=== PATIENT | male | born 1995 | race Caucasian/White ===

== ENCOUNTER 2020-09-03 22:11 | Emergency (ER) | payer OTHER ==
[2020-09-03 22:34] VITALS: PULSE 110; RESP 18; TEMP 98.9
[2020-09-03] MEDS ORDERED: SODIUM CHLORIDE 0.9% 1,000 ML IV STA (22:55)
[2020-09-03 23:09] LABS: Basophils # (A) 0.1 k/uL (0-0.2); Basophils % (A) 1 %; Eosinophils # (A) 0.1 k/uL (0-0.7); Eosinophils % (A) 1 %; HCT 45.5 % (39.0-53.0); HGB 16.2 gm/dL (13.0-17.5); Lymphocytes # (A) 3.6 k/uL (1.0-4.8); Lymphocytes % (A) 37 %; MCHC 35.7 g/dL (31.0-37.0); MCV 89.7 fL (80.0-100.0); Mean Platelet Volume 6.9; Monocytes # (A) 0.6 k/uL (0-1.0); Monocytes % (A) 7 %; Neutrophils # (A) 4.9 k/uL (1.3-7.7); Neutrophils % (A) 51 %; Platelet Count 329 k/uL (150-450); RBC 5.07 m/uL (4.30-5.90); RDW 11.8 % (11.5-15.5); WBC 9.6 k/uL (3.8-10.6)
[2020-09-03 23:19] LABS: ALT 48 U/L (4-49); AST 41 U/L (17-59); African American GFR (CKD) >90 (>60 ml/min/1.73 sqM); Albumin 4.8 g/dL (3.5-5.0); Alkaline Phosphatase 75 U/L (38-126); Anion Gap 8 mmol/L; Blood Urea Nitrogen 15 mg/dL (9-20); Calcium 9.7 mg/dL (8.4-10.2); Carbon Dioxide 29 mmol/L (22-30); Chloride 104 mmol/L (98-107); Glucose 97 mg/dL (74-99); Lipase 44 U/L (23-300); Non-African American GFR(CKD) >90 (>60 ml/min/1.73 sqM); Sodium 141 mmol/L (137-145); Total Bilirubin 0.4 mg/dL (0.2-1.3); Total Protein 7.8 g/dL (6.3-8.2)
--- NOTE | 2020-09-03 23:34 | CT ---
EXAM: CT Abdomen and Pelvis With Intravenous Contrast CLINICAL HISTORY: Abdominal pain. TECHNIQUE: Axial computed tomography images of the abdomen and pelvis with intravenous contrast. CTDI is 22.27 mGy and DLP is 987.4 mGy-cm. This CT exam was performed using one or more of the following dose reduction techniques: automated exposure control, adjustment of the mA and/or kV according to patient size, and/or use of iterative reconstruction technique. COMPARISON: No previous studies. FINDINGS: Lung bases: Unremarkable. No mass. No consolidation. Pleural space: No pleural effusions. Heart: Heart is normal in size. ABDOMEN: Liver: The liver and the spleen enhance uniformly. Possible very mild fatty liver. Gallbladder and bile ducts: The bladder is in a partially contracted state without gallstones. No ductal dilation. Pancreas: See below. Spleen: See above. Adrenals: Adrenal metastases, the head, body, tail of the pancreas are unremarkable. Kidneys and ureters: Both kidneys are shown to excrete contrast bilaterally without renal calculus or hydronephrosis. Stomach and bowel: Ingested material in the stomach per Moderate quantity of stool throughout the colon. There is diffuse wall thickening of the transverse colon extending to involve the descending colon and the sigmoid colon. Inflammatory or infectious colitis are felt to be the most likely etiologies. No obstruction. PELVIS: Appendix: Appendix is seen on coronal image 45 and is unremarkable. Bladder: The bladder is underdistended Jalloh Reproductive: Prostate gland is unremarkable. ABDOMEN and PELVIS: Intraperitoneal space: Unremarkable. No free air. No significant fluid collection. Bones/joints: Vacuum disc at the L5-S1 level. No spondylolysis or spinal listhesis appeared Minimal grade 1 retrolisthesis of L5 upon S1 vertebral body. No acute fracture. No dislocation. Soft tissues: Ischiorectal fat is clean. Vasculature: Flow is demonstrated within the celiac, SMA, the renal arteries, and HATTIE. Portal vein is unremarkable. No abdominal aortic aneurysm. Lymph nodes: No retroperitoneal lymphadenopathy. No pelvic or inguinal lymphadenopathy. IMPRESSION: 1. Mild fatty liver. 2. Gallbladder is in a semi-contracted state without gallstones. 3. No renal calculus or hydronephrosis. 4. Appendix is unremarkable. 5. Wall thickening of the transverse colon, the descending colon and the sigmoid colon segments most suggestive of inflammatory or infectious etiologies. 6. No bowel obstruction.
--- NOTE | 2020-09-03 23:47 | ED ---
General Adult HPI - General Chief complaint: Abdominal Pain Stated complaint: Abd Pain Time Seen by Provider: 09/03/20 22:42 Source: patient, RN notes reviewed, old records reviewed Mode of arrival: ambulatory Limitations: no limitations - History of Present Illness Initial comments: 25-year-old male patient here for evaluation of abdominal pain. Patient reports that he was diagnosed with IBS was told that is possible he may have Crohn's. He reports that he has been having daily abdominal pain for weeks. Reports he also had some bloody diarrhea on a few occasions. Denies any nausea or vomiting. Denies any other complaints. Systemic: Pt denies fatigue, fever/chills, rash. Pt denies weakness, night sweats, weight loss. Neuro: Pt denies headache, visual disturbances, syncope or pre-syncope. HEENT: Pt denies ocular discharge or irritation, otalgia, rhinorrhea, pharyngitis or notable lymphadenopathy. Cardiopulmonary: Pt denies chest pain, SOB, heart palpitations, dyspnea on exertion. Abdominal/GI: Pt denies n/v. : Pt denies dysuria, burning w/ urination, frequency/urgency. Denies new onset urinary or bowel incontinence. MSK: Pt denies myalgia, loss of strength or function in extremities. Neuro: Pt denies new onset weakness, paresthesias. - Related Data Home Medications Medication Instructions Recorded Confirmed Diphenoxylate HCl/Atropine 2 tab PO BID PRN 09/03/20 09/03/20 [Lomotil 2.5-0.025 mg Tablet] Omeprazole 20 mg PO HS 09/03/20 09/03/20 lamoTRIgine [lamoTRIgine ER] 50 mg PO HS 09/03/20 09/03/20 Allergies Allergy/AdvReac Type Severity Reaction Status Date / Time diphenhydramine AdvReac Itching Verified 09/03/20 23:34 [From Benadryl] Review of Systems ROS Statement: Those systems with pertinent positive or pertinent negative responses have been documented in the HPI. ROS Other: All systems not noted in ROS Statement are negative. Past Medical History Additional Past Medical History / Comment(s): Crohns, IBS History of Any Multi-Drug Resistant Organisms: None Reported Past Surgical History: Orthopedic Surgery Additional Past Surgical History / Comment(s): rt hand Past Psychological History: Anxiety Smoking Status: Current every day smoker Past Alcohol Use History: None Reported Past Drug Use History: Marijuana General Exam - General Exam Comments Initial Comments: Constitutional: NAD, AOX3, Pt has pleasant affect. HEENT: NC/AT, trachea midline, neck supple, no lymphadenopathy. External ears appear normal, without discharge. Mucous membranes moist. Eyes PERRLA, EOM intact. There is no scleral icterus. No pallor noted. Cardiopulmonary: RRR, no murmurs, rubs or gallops, no JVD noted. Lungs CTAB in anterior and posterior hunt. No peripheral edema. Abdominal exam: Abdomen soft and non-distended. Abdomen has mild generalized tenderness. No focal area of tenderness. Bowel sounds active in LLQ. No hepatosplenomegaly. No ecchymosis Neuro: CN II-XII grossly intact. No nuchal rigidity. No raccon eyes, no martinez sign, no hemotympanum. No cervical spinal tenderness. MSK: Full active ROM in upper and lower extremities, 5/5 stregnth. Limitations: no limitations Course Vital Signs 09/03/20 22:32 Temperature 98.9 F Pulse Rate 110 H Respiratory 18 Rate Blood Pressure 130/71 O2 Sat by Pulse 99 Oximetry Medical Decision Making - Medical Decision Making 25-year-old male patient here for evaluation of abdominal pain. Patient reports that he was diagnosed with IBS was told that is possible he may have Crohn's. He reports that he has been having daily abdominal pain for weeks. Reports he also had some bloody diarrhea on a few occasions. Denies any nausea or vomiting. Denies any other complaints. Patient vital signs are stable, afebrile. Physical exam displayed mild denies abdominal tenderness. Laboratory Investigations are unremarkable. The TMs pelvis displayed mild fatty liver, gallbladder is in a semi-contracted state without gallstones. No renal Keckler hydronephrosis. Appendix is unremarkable. Wall thickening of the transverse colon the descending colon and sigmoid colon. No bowel obstruction. Patient is in no acute distress. Patient will be discharged with outpatient GI follow-up and return precautions. Case discussed with Dr. Brito. - Lab Data Result diagrams: 09/03/20 23:01 09/03/20 23:01 Lab Results 09/03/20 09/03/20 09/03/20 Range/Units 23:01 23: 23:01 WBC 9.6 (3.8-10.6) k/uL RBC 5.07 (4.30-5.90) m/uL Hgb 16.2 (13.0-17.5) gm/dL Hct 45.5 (39.0-53.0) % MCV 89.7 (80.0-100.0) fL MCH 32.0 (25.0-35.0) pg MCHC 35.7 (31.0-37.0) g/dL RDW 11.8 (11.5-15.5) % Plt Count 329 (150-450) k/uL MPV 6.9 Neutrophils % 51 % Lymphocytes % 37 % Monocytes % 7 % Eosinophils % 1 % Basophils % 1 % Neutrophils # 4.9 (1.3-7.7) k/uL Lymphocytes # 3.6 (1.0-4.8) k/uL Monocytes # 0.6 (0-1.0) k/uL Eosinophils # 0.1 (0-0.7) k/uL Basophils # 0.1 (0-0.2) k/uL Sodium 141 (137-145) mmol/L Potassium 4.0 (3.5-5.1) mmol/L Chloride 104 (98-107) mmol/L Carbon Dioxide 29 (22-30) mmol/L Anion Gap 8 mmol/L BUN 15 (9-20) mg/dL Creatinine 0.77 (0.66-1.25) mg/dL Est GFR (CKD-EPI)AfAm >90 (>60 ml/min/1.73 sqM) Est GFR (CKD-EPI)NonAf >90 (>60 ml/min/1.73 sqM) Glucose 97 (74-99) mg/dL Plasma Lactic Acid Zechariah 0.9 (0.7-2.0) mmol/L Calcium 9.7 (8.4-10.2) mg/dL Total Bilirubin 0.4 (0.2-1.3) mg/dL AST 41 (17-59) U/L ALT 48 (4-49) U/L Alkaline Phosphatase 75 (38-126) U/L Total Protein 7.8 (6.3-8.2) g/dL Albumin 4.8 (3.5-5.0) g/dL Lipase 44 (23-300) U/L Disposition Clinical Impression: Abdominal pain Disposition: HOME SELF-CARE Condition: Stable Instructions (If sedation given, give patient instructions): Abdominal Pain (ED) Additional Instructions: Follow up with PCP tomorrow. Follow up with GI consult tomorrow. Return to ED with any worsening symptoms. Is patient prescribed a controlled substance at d/c from ED?: No Referrals: Emily Goldberg DO [Primary Care Provider] - 1-2 days Mike Hinson MD [STAFF PHYSICIAN] - 1-2 days
[2020-09-03 23:56] VITALS: BP 140/91
== END 2020-09-03 23:56 | disposition home or self-care (01) ==
LOC: EC 22:11
DX: R10.9 Unspecified abdominal pain (principal); K76.0 Fatty (change of) liver, not elsewhere classified; K82.0 Obstruction of gallbladder; K63.89 Other specified diseases of intestine; F17.200 Nicotine dependence, unspecified, uncomplicated; Z79.899 Other long term (current) drug therapy; Z88.8 Allergy status to other drugs, medicaments and biological substances
CPT/HCPCS: 80053; 83605; 83690; 85025; 74177; 99284; 96360; Q9967

== ENCOUNTER 2020-09-04 21:03 | Emergency (ER) | payer OTHER ==
[2020-09-04 21:18] VITALS: BP 122/81; PULSE 108; RESP 18; TEMP 98.3
[2020-09-04] MEDS ORDERED: ACET/COD 300 MG/30 MG STARTER PACK 6 TAB BTL PO STA (21:57)
--- NOTE | 2020-09-04 21:57 | ED ---
Recheck HPI - General Source: patient Mode of arrival: ambulatory Limitations: no limitations <Mary Eisenberg - Last Filed: 09/04/20 22:36> <Jeannine Recinos - Last Filed: 09/06/20 09:04> - General Chief Complaint: Abdominal Pain Stated Complaint: Revisit Abd Pain Time Seen by Provider: 09/04/20 21:31 - History of Present Illness Initial Comments: Patient is a 25-year-old male presenting to the emergency department for a recheck of his abdominal pain. Patient was seen and evaluated yesterday for abdominal pain, he had full workup including labs and computed tomography scan, no acute abnormalities were seen. He has been diagnosed with IBS in the past and there is concerns for Crohn's. He has not yet followed up with a GI doctor. He is coming back in today because he feels like "the contrast from the computed tomography scan is still in his abdomen and it makes him feel warm." He denies any fever, chills, nausea, vomiting. He states he still has his abdominal pain, it is his usual pain, nothing that increased from yesterday. He has been trying edible's to control his pain as he does not like to take pills. He has no further complaints at this time. (Mary Eisenberg) - Related Data Home Medications Medication Instructions Recorded Confirmed Diphenoxylate HCl/Atropine 2 tab PO BID PRN 09/03/20 09/03/20 [Lomotil 2.5-0.025 mg Tablet] Omeprazole 20 mg PO HS 09/03/20 09/03/20 lamoTRIgine [lamoTRIgine ER] 50 mg PO HS 09/03/20 09/03/20 Allergies Allergy/AdvReac Type Severity Reaction Status Date / Time diphenhydramine AdvReac Itching Verified 09/04/20 21:18 [From Benadryl] Review of Systems ROS Other: All systems not noted in ROS Statement are negative. <Mary Eisenberg - Last Filed: 09/04/20 22:36> ROS Other: All systems not noted in ROS Statement are negative. <Jeannine Recinos - Last Filed: 09/06/20 09:04> ROS Statement: Those systems with pertinent positive or pertinent negative responses have been documented in the HPI. Past Medical History Past Medical History: No Reported History Additional Past Medical History / Comment(s): Crohns, IBS History of Any Multi-Drug Resistant Organisms: None Reported Past Surgical History: Orthopedic Surgery Additional Past Surgical History / Comment(s): rt hand Past Psychological History: Anxiety Smoking Status: Current every day smoker Past Alcohol Use History: None Reported Past Drug Use History: Marijuana <Jen Eisenbergnifer Chris - Last Filed: 09/04/20 22:36> General Exam Limitations: no limitations <FainaMary Chris - Last Filed: 09/04/20 22:36> - General Exam Comments Initial Comments: GENERAL: Patient is well-developed and well-nourished. Patient is nontoxic and in no acute distress. HEAD: Atraumatic, normocephalic. EYES: Pupils equal round and reactive to light, extraocular movements intact, sclera anicteric, conjunctiva are normal. Eyelids were unremarkable. ENT: TMs normal, nares patent, oropharynx clear without exudates. Moist mucous membranes. NECK: Normal range of motion, supple without lymphadenopathy or JVD. LUNGS: Unlabored respirations. Breath sounds clear to auscultation bilaterally and equal. No wheezes rales or rhonchi. HEART: Regular rate and rhythm without murmurs, rubs or gallops. ABDOMEN: Mild generalized tenderness on palpation, no specific area pain. Soft, normoactive bowel sounds. No guarding, no rebound. No masses appreciated. : Deferred MUSCULOSKELETAL: Normal extremities with adequate strength and normal range of motion, no pitting or edema. No clubbing or cyanosis. NEUROLOGICAL: Patient is alert and oriented x 3. Motor and sensory are also intact. Cranial nerves II through XII grossly intact. Symmetrical smile. Normal speech, normal gait. PSYCH: Normal mood, normal affect. SKIN: Warm, Dry, normal turgor, no rashes or lesions noted. (Mary Eisenberg) Course Vital Signs 09/04/20 21:14 Temperature 98.3 F Pulse Rate 108 H Respiratory 18 Rate Blood Pressure 122/81 O2 Sat by Pulse 100 Oximetry Medical Decision Making <Mary Eisenberg - Last Filed: 09/04/20 22:36> <Jeannine Recinos - Last Filed: 09/06/20 09:04> - Medical Decision Making Patient is a 25-year-old male here for recheck from his examination performed yesterday. Patient was in the ER yesterday for abdominal pain had full workup including labs and CT of his abdomen that showed no acute abnormality, there is signs for IBS. He was told to follow up with GI. He came in today with concerns of the contrast still in his abdomen and "making him feel warm." His vital signs upon arrival are stable, he is afebrile. He states it feels the same as he always does. I discussed the findings from yesterday and he is requesting something to take for his pain. I will give him a starter pack of tramadol. He needs to follow up with his GI doctor. He is in agreement this plan of care. He is stable for discharge. Case discussed with Dr. Recinos. (Mary Eisenberg) I was available for consultation in the emergency department. The history and physical exam were done by the midlevel provider. I was consulted for this patients care. I reviewed the case with the midlevel provider and based on their presentation of the patient, I agree with the assessment, medical decision making and plan of care as documented. Chart was dictated using [employer] dictation software. Attempts were made to correct any dictation errors however some typographical errors may persist. Patient seen during the covid-19 pandemic (Jeannine Recinos) Disposition Is patient prescribed a controlled substance at d/c from ED?: No <Mary Eisenberg - Last Filed: 09/04/20 22:36> <Jeannine Recinos - Last Filed: 09/06/20 09:04> Clinical Impression: Abdominal pain Disposition: HOME SELF-CARE Condition: Stable Instructions (If sedation given, give patient instructions): Abdominal Pain (ED) Additional Instructions: Please return to the Emergency Department if symptoms worsen or any other concerns. Please follow-up with your GI doctor as discussed. Limit spicy, fatty foods. Referrals: Emily Goldberg DO [Primary Care Provider] - 1-2 days
== END 2020-09-04 22:15 | disposition home or self-care (01) ==
LOC: EC 21:03
DX: R10.9 Unspecified abdominal pain (principal); F41.9 Anxiety disorder, unspecified; F17.200 Nicotine dependence, unspecified, uncomplicated; Z79.899 Other long term (current) drug therapy; Z88.8 Allergy status to other drugs, medicaments and biological substances
CPT/HCPCS: 99283

== ENCOUNTER 2020-10-02 01:27 | Observation (INO) | payer OTHER ==
[2020-10-02] MEDS ORDERED: SODIUM CHLORIDE 0.9% 1,000 ML IV STA (01:34)
--- NOTE | 2020-10-02 01:42 | ED ---
Overdose HPI - General Stated Complaint: overdose Time Seen by Provider: 10/02/20 01:33 Source: patient, EMS Mode of arrival: ambulatory Limitations: no limitations - History of Present Illness Initial Comments: 25-year-old male who struggles with depression crackly presented to the emergency room today for chief complaint of Seroquel overdose as a suicide attempt. Patient states that he recently was laid off increasing his baseline depression. Patient states tonight he took roughly 50-60, 50 mg Seroquel tablets. Patient states he feels tired and nauseous. He states he did vomit up approximately 20 "whole pills". Patient denies any coingestion he states he took his omeprazole, Bentyl and Lomotil as directed. Patient denies chest pain shortness of breath, emesis, abdominal pain, dizziness or additional complaints. pt appears well nontoxic in no acute distress on arrival. He is AAOX4 answering questions appropriately. - Related Data Home Medications Medication Instructions Recorded Confirmed Diphenoxylate HCl/Atropine 2 tab PO BID PRN 09/03/20 09/03/20 [Lomotil 2.5-0.025 mg Tablet] Omeprazole 20 mg PO HS 09/03/20 09/03/20 lamoTRIgine [lamoTRIgine ER] 50 mg PO HS 09/03/20 09/03/20 Allergies Allergy/AdvReac Type Severity Reaction Status Date / Time diphenhydramine AdvReac Itching Verified 10/02/20 01:38 [From Benadryl] Review of Systems ROS Statement: Those systems with pertinent positive or pertinent negative responses have been documented in the HPI. ROS Other: All systems not noted in ROS Statement are negative. Past Medical History Past Medical History: No Reported History Additional Past Medical History / Comment(s): Crohns, IBS History of Any Multi-Drug Resistant Organisms: None Reported Past Surgical History: Orthopedic Surgery Additional Past Surgical History / Comment(s): rt hand Past Psychological History: Anxiety, Bipolar, Depression Smoking Status: Current every day smoker Past Alcohol Use History: None Reported Past Drug Use History: Marijuana General Exam - General Exam Comments Initial Comments: General: The patient is awake and alert, in no distress, Eye: +3 mm pupils are equal, round and reactive to light, extra-ocular movements are intact. No nystagmus. There is normal conjunctiva bilaterally. No signs of icterus. Ears, nose, mouth and throat: There are moist mucous membranes and no oral lesions. Neck: The neck is supple, there is no tenderness or JVD. Cardiovascular: There is a regular rate and rhythm. No murmur, rub or gallop is appreciated. Respiratory: Lungs are clear to auscultation, respirations are non-labored, breath sounds are equal. No wheezes, stridor, rales, or rhonchi. Gastrointestinal: Soft, non-distended, non-tender abdomen without masses or organomegaly noted. There is no rebound or guarding present. Musculoskeletal: Normal ROM, no tenderness. Strength 5/5. Sensation intact. Radial pulses equal bilaterally 2+. Neurological: A&O x 3. CN II-XII intact grossly, There are no obvious motor or sensory deficits. Coordination appears grossly intact. Speech is normal. Skin: Skin is warm and dry and no rashes or lesions are noted. Psychiatric: Cooperative, appears overall slightly drowsy but is oriented. Limitations: no limitations Course Vital Signs 10/02/20 10/02/20 10/02/20 01:30 02:54 03:29 Temperature 98.5 F Pulse Rate 90 102 H 92 Respiratory 20 18 18 Rate Blood Pressure 133/83 132/63 96/45 O2 Sat by Pulse 98 96 94 L Oximetry 10/02/20 03:31 Temperature Pulse Rate Respiratory Rate Blood Pressure 117/48 O2 Sat by Pulse Oximetry Medical Decision Making - Medical Decision Making ~3g Seroquel overdose. Intentional, patient suicidal. Denies homicidal ideation. Patient very cooperative. Patient is slightly drowsy however alert and oriented 4 on arrival. He has no focal neurological deficits. He denies any coingestions. Patient's blood pressure remained stable throughout visit. Patient had no QT plication EKG. Acetaminophen and salicylate levels undetectable. Patient has had no neurological changes and will be admitted for further observation on telemetry. Dr Umana accepted the admission and is agreeable to care plan as is attending provider Yfn Singer - Lab Data Result diagrams: 10/02/20 01:38 10/02/20 01:38 Lab Results 10/02/20 10/02/20 10/02/20 Range/Units 01:38 01:38 02:54 WBC 6.9 (3.8-10.6) k/uL RBC 5.10 (4.30-5.90) m/uL Hgb 15.2 (13.0-17.5) gm/dL Hct 46.6 (39.0-53.0) % MCV 91.3 (80.0-100.0) fL MCH 29.9 (25.0-35.0) pg MCHC 32.7 (31.0-37.0) g/dL RDW 12.5 (11.5-15.5) % Plt Count 262 (150-450) k/uL MPV 6.8 Neutrophils % 59 % Lymphocytes % 31 % Monocytes % 6 % Eosinophils % 1 % Basophils % 0 % Neutrophils # 4.1 (1.3-7.7) k/uL Lymphocytes # 2.2 (1.0-4.8) k/uL Monocytes # 0.4 (0-1.0) k/uL Eosinophils # 0.1 (0-0.7) k/uL Basophils # 0.0 (0-0.2) k/uL Sodium 139 (137-145) mmol/L Potassium 3.6 (3.5-5.1) mmol/L Chloride 107 (98-107) mmol/L Carbon Dioxide 23 (22-30) mmol/L Anion Gap 9 mmol/L BUN 21 H (9-20) mg/dL Creatinine 0.71 (0.66-1.25) mg/dL Est GFR (CKD-EPI)AfAm >90 (>60 ml/min/1.73 sqM) Est GFR (CKD-EPI)NonAf >90 (>60 ml/min/1.73 sqM) Glucose 117 H (74-99) mg/dL Calcium 9.1 (8.4-10.2) mg/dL Total Bilirubin 0.3 (0.2-1.3) mg/dL AST 27 (17-59) U/L ALT 42 (4-49) U/L Alkaline Phosphatase 54 (38-126) U/L Total Protein 7.3 (6.3-8.2) g/dL Albumin 4.4 (3.5-5.0) g/dL Salicylates <1.0 mg/dL Urine Opiates Screen Not Detected (NotDetected) Ur Oxycodone Screen Not Detected (NotDetected) Urine Methadone Screen Not Detected (NotDetected) Ur Propoxyphene Screen Not Detected (NotDetected) Acetaminophen <10.0 ug/mL Ur Barbiturates Screen Not Detected (NotDetected) U Tricyclic Antidepress Detected H (NotDetected) Ur Phencyclidine Scrn Not Detected (NotDetected) Ur Amphetamines Screen Not Detected (NotDetected) U Methamphetamines Scrn Not Detected (NotDetected) U Benzodiazepines Scrn Not Detected (NotDetected) Urine Cocaine Screen Not Detected (NotDetected) U Marijuana (THC) Screen Detected H (NotDetected) Serum Alcohol <10 mg/dL Disposition Clinical Impression: Overdose, Depression, Suicide attempt Disposition: ADMITTED IP TO THIS [facility] Condition: Stable Is patient prescribed a controlled substance at d/c from ED?: No Referrals: Emily Goldberg DO [Primary Care Provider] - 1-2 days Time of Disposition: 04:00 Decision to Admit Reason: Admit from EC Decision Date: 10/02/20 Decision Time: 04:01
[2020-10-02 01:49] LABS: Basophils % (A) 0 %; Eosinophils # (A) 0.1 k/uL (0-0.7); Eosinophils % (A) 1 %; HCT 46.6 % (39.0-53.0); HGB 15.2 gm/dL (13.0-17.5); Lymphocytes # (A) 2.2 k/uL (1.0-4.8); Lymphocytes % (A) 31 %; MCH 29.9 pg (25.0-35.0); MCHC 32.7 g/dL (31.0-37.0); MCV 91.3 fL (80.0-100.0); Mean Platelet Volume 6.8; Monocytes # (A) 0.4 k/uL (0-1.0); Monocytes % (A) 6 %; Neutrophils # (A) 4.1 k/uL (1.3-7.7); Neutrophils % (A) 59 %; Platelet Count 262 k/uL (150-450); RDW 12.5 % (11.5-15.5); WBC 6.9 k/uL (3.8-10.6)
[2020-10-02 01:55] LABS: ALT 42 U/L (4-49); AST 27 U/L (17-59); Acetaminophen <10.0 ug/mL; African American GFR (CKD) >90 (>60 ml/min/1.73 sqM); Albumin 4.4 g/dL (3.5-5.0); Alcohol <10 mg/dL; Alkaline Phosphatase 54 U/L (38-126); Anion Gap 9 mmol/L; Blood Urea Nitrogen 21 mg/dL (9-20); Calcium 9.1 mg/dL (8.4-10.2); Carbon Dioxide 23 mmol/L (22-30); Chloride 107 mmol/L (98-107); Glucose 117 mg/dL (74-99); Non-African American GFR(CKD) >90 (>60 ml/min/1.73 sqM); Potassium 3.6 mmol/L (3.5-5.1); Salicylate <1.0 mg/dL; Sodium 139 mmol/L (137-145); Total Bilirubin 0.3 mg/dL (0.2-1.3); Total Protein 7.3 g/dL (6.3-8.2)
[2020-10-02] MEDS: SODIUM CHLORIDE 0.9% 1,000 ML IV SCH ×2 (02:13→11:08)
[2020-10-02 03:20] LABS: Amphetamine Screen,Urine Not Detected (NotDetected); Barbiturate Screen,Urine Not Detected (NotDetected); Benzodiazepines Screen,Urine Not Detected (NotDetected); Cocaine Screen,Urine Not Detected (NotDetected); Methadone Screen, Urine Not Detected (NotDetected); Opiate Screen,Urine Not Detected (NotDetected); Oxycodone Screen, Urine Not Detected (NotDetected); Phencyclidine Screen,Urine Not Detected (NotDetected); Tricyclic Antidepressant,Urine Detected (NotDetected); Urn Cannabinoid Scrn Detected (NotDetected)
[2020-10-02] MEDS ORDERED: NALOXONE 0.4 MG/ML 1 ML VIAL IV PRN (03:55)
[2020-10-02] MEDS ORDERED: SODIUM BICARB 8.4% 50 ML SYR (1 MEQ/ML) IV STA (10:45)
[2020-10-02] MEDS ORDERED: Potassium Replacement Protocol 1 EACH MISC MISCELLANE PRN (10:46)
[2020-10-02] MEDS ORDERED: CALCIUM CHLORIDE 100 MG/ML 10 ML SYRINGE IVP ONE (10:47)
[2020-10-02] MEDS ORDERED: POTASSIUM CHLORIDE ER 20 MEQ TAB.ER PO SCH (11:00)
[2020-10-02] MEDS ORDERED: Magnesium Replacement Protocol 1 EACH MISC MISCELLANE PRN (11:45)
[2020-10-02 12:05] VITALS: RESP 18; TEMP 97.7
[2020-10-02] MEDS: MAGNESIUM SULFATE-D5W PMX 1 GM in DEXTROSE/WATER 1 100ML.BAG IVPB SCH ×2 (12:07→12:47)
[2020-10-02] MEDS ORDERED: PANTOPRAZOLE 40 MG TABLET PO STA (13:38)
[2020-10-02] MEDS ORDERED: NICOTINE POLACRILEX 2 MG GUM BUCCAL PRN (13:38)
[2020-10-02] MEDS ORDERED: HALOPERIDOL LACTATE 5 MG/ML 1 ML VIAL IM PRN (13:39)
[2020-10-02] MEDS ORDERED: LORazepam 2 MG/ML INJ IM PRN (13:39)
--- NOTE | 2020-10-02 14:29 | P.CN ---
Psychiatric Consult - . Consult date: 10/02/20 Consult:: IDENTIFYING DATA: This patient is an unemployed, engaged, 25-year-old male with a significant history of bipolar disorder who is admitted for overdose on Seroquel. HISTORY OF PRESENT ILLNESS: The patient presented to the hospital after intentionally overdosing on Seroquel after an argument with his fiance. The patient expresses that he has had multiple stressors recently including being laid off work as well as being in an argument with his fiance. He also reports that he and his fiance also have a new two-month old daughter. Patient expresses that he was in the heat of the argument that he decided to put Seroque l into his mouth. He approximates that he took about 20 pills prior to throwing up. EMS was then notified and the plane runner was brought to the hospital. Patient is not endorsing any significant symptoms depression at this time. He does report occasional thoughts of suicide but denies any current suicidal or homicidal ideation, intention, and/or plan. He denies any prior attempts at suicide aside from this overdose. He expresses plenty to live for including for his family, especially his daughter. He is not reporting any significant symptoms of bipolar disorder at this time aside from irritability and mood swings. He reports that he was recently diagnosed bipolar by his primary care provider who started him on Seroquel week ago. He has been on Lamictal for a few months. He is currently not reporting any auditory or visualizations. He is not reporting any paranoia or delusions. Patient became visibly frustrated and agitated when informed that he will have to be monitored as he expressed a strong desire for discharge. The patient allowed this provider to contact his fiance Mary over the phone. His fiance reports that she feels safe for the patient to return home. She denies that the patient has any access to firearms or weapons. She reports that she will monitor his medications and that it would be less therapeutic for him to be admitted to a psychiatric unit. She expresses that she feels like both the patient and the family would feel safer with the patient at home. PAST PSYCHIATRIC HISTORY: Patient has a a history of bipolar disorder. The pa tiebulmaro denies prior psychotropic medications aside from his currently prescribed Lamictal and Seroquel. Patient denies any previous psychiatric hospitalizations. The patient is prescribed his psychotropic medications through his primary care provider. Patient denies any history of suicide attempts in the past. PAST MEDICAL HISTORY: Crohn's disease, IBS. ALLERGIES: Diphenhydramine CHEMICAL DEPENDENCY HISTORY: The patient reports sleeping daily. He equivocates his sleep use to approximately 2 packs per day of tobacco. He reports smoking marijuana almost every day to treat his Crohn's and IBS. He denies any other drug use. He reports no significant alcohol use. FAMILY PSYCHIATRIC/SUBSTANCE USE HISTORY: Patient denies any family psychiatric or substance abuse history. SOCIAL HISTORY: The patient was in foster care at the age of 16 after his father and his mother ran out on him. He has 1 biological sister. He is currently engaged to his francis Hernandez with whom he has been living with. They have a 2-month-old daughter and tells his mother is also present in the home. 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 He graduated high school. He completed basic training for the [employer]. He is currently on probation for cashing a bad check. MENTAL STATUS EXAM: General Appearance: Patient appears to be stated age is alert, pleasant, and cooperative. Patient appears to have fair hygiene and grooming wearing hospital gown with fair eye contact. Behavior: Patient is calmly lying in bed without any agitated behavior. Patient becomes visibly agitated when informed about possible inpatient admission. He becomes calm and redirectable as a conversation continued. Speech: Patient's speech is fluent and nonpressured. Mood/Affect: Patient reports their mood is "okay", affect is euthymic to somewhat labile. The Patient appears irritable. Suicidality/Homicidality: Patient vehemently denies any suicidal or homicidal ideation, intention, and/or plan. Perceptions: Patient vehemently denies any auditory or visual hallucinations. Though content/process: There is no evidence of any delusional thought content and thought process is linear and goal-directed. Memory and concentration: AOX3, grossly intact for the purposes of this session. Can spell "WORLD" backwards Judgment and insight: poor IMPRESSIONS: Bipolar disorder, unspecified Adjustment disorder, with mixed disturbance of mood and conduct. Cannabis use disorder Nicotine dependence PLAN: -At this time patient DOES NOT meet criteria for inpatient psychiatric admission. The patient has had no prior attempts at suicide and this attempt was reactionary in nature secondary to poor coping skills. Significant discussion took place with the patient's carlos Hernandez who reports that the patient would benefit most from coming home and that she and her mother will monitor his medications and ensure no access to firearms or weapons. Protective factors currently outweigh the patient's risk factors. He has a supportive family, is future oriented, and a strong desire to live for his child. -Would recommend the following medication changes/additions: We will start Abilify 10 mg by mouth daily for mood stabilization We will restart Lamictal 50 mg by mouth at bedtime Discontinue Seroquel due to the nature of overdose as well as patient and family preference that the medication was too sedating. -Recommend social work consult to provide patient with resources for counseling services in the outpatient setting. Recommend follow-up for mental health tr eatment outpatient. -Continue 1:1 sitter for safety and elopement precautions -Psychiatry will sign off at this point, please contact with any questions. 10/02/20 14:15
[2020-10-02 16:39] VITALS: BP 106/62; PULSE 94
[2020-10-02 18:18] LABS: ALT 39 U/L (4-49); AST 24 U/L (17-59); African American GFR (CKD) >90 (>60 ml/min/1.73 sqM); Alkaline Phosphatase 54 U/L (38-126); Anion Gap 7 mmol/L; Blood Urea Nitrogen 11 mg/dL (9-20); Calcium 9.3 mg/dL (8.4-10.2); Carbon Dioxide 26 mmol/L (22-30); Chloride 105 mmol/L (98-107); Glucose 89 mg/dL (74-99); Non-African American GFR(CKD) >90 (>60 ml/min/1.73 sqM); Potassium 4.2 mmol/L (3.5-5.1); Sodium 138 mmol/L (137-145); Total Bilirubin 0.7 mg/dL (0.2-1.3); Total Protein 6.8 g/dL (6.3-8.2)
[2020-10-02] MEDS ORDERED: lamoTRIgine 25 MG TAB PO SCH (21:00)
--- NOTE | 2020-10-02 22:24 | P.HPIM ---
History of Present Illness H&P Date: 10/02/20 Chief Complaint: overdose Ra Roberson is a 25 yo M with PMH of depression, bipolar disorder who was brought to the ED via EMS after an overdose of seroquel. He states he got into an argument with his fiance yesterday as well as financial difficulties. He states he just became overwhelmed and took about 20 of his seroquel. Pt states this was not a suicide attempt but a cry for help and he denies suicidal ideation at this time. He vomited after and then his fiance called EMS. On presentation his vitals and labs were stable, EKG NSR with QTc 430. Review of Systems All systems: negative Constitutional: Denies chills, Denies fever Eyes: denies blurred vision, denies pain Ears, nose, mouth and throat: Denies headache, Denies sore throat Cardiovascular: Denies chest pain, Denies shortness of breath Respiratory: Denies cough Gastrointestinal: Denies abdominal pain, Denies diarrhea, Denies nausea, Denies vomiting Musculoskeletal: Denies myalgias Integumentary: Denies pruritus, Denies rash Neurological: Denies numbness, Denies weakness Psychiatric: Reports depression, Reports suicidal ideation, Denies anxiety Endocrine: Denies fatigue, Denies weight change Past Medical History Past Medical History: No Reported History Additional Past Medical History / Comment(s): Crohns, IBS History of Any Multi-Drug Resistant Organisms: None Reported Past Surgical History: Orthopedic Surgery Additional Past Surgical History / Comment(s): rt hand Past Psychological History: Anxiety, Bipolar, Depression Smoking Status: Vaper Past Alcohol Use History: None Reported Past Drug Use History: Marijuana - Past Family History Father Family Medical History: Cancer Medications and Allergies Home Medications Medication Instructions Recorded Confirmed Type Diphenoxylate HCl/Atropine 2 tab PO BID PRN 09/03/20 10/02/20 History [Lomotil 2.5-0.025 mg Tablet] Omeprazole 20 mg PO HS 09/03/20 10/02/20 History lamoTRIgine [lamoTRIgine ER] 50 mg PO HS 09/03/20 10/02/20 History QUEtiapine FUMARATE 50 - 100 mg PO HS 10/02/20 10/02/20 History Allergies Allergy/AdvReac Type Severity Reaction Status Date / Time diphenhydramine AdvReac Itching Verified 10/02/20 09:36 [From [facility] [place]] Physical Exam Vitals: Vital Signs Temp Pulse Pulse Resp BP BP Pulse Ox 10/02/20 16:00 94 18 106/62 97 10/02/20 14:00 18 10/02/20 12:00 97.7 F 70 18 102/55 97 10/02/20 11:57 97.3 F L 61 92/61 97 10/02/20 11:11 67 16 123/65 97 10/02/20 08:00 97.7 F 70 21 102/55 97 10/02/20 05:40 74 18 10/02/20 05:30 119/78 10/02/20 05:15 97.8 F 108 H 18 120/74 96 10/02/20 04:48 71 18 122/45 97 10/02/20 03:31 117/48 10/02/20 03:29 92 18 96/45 94 L 10/02/20 02:54 102 H 18 132/63 96 10/02/20 01:30 98.5 F 90 20 133/83 98 Intake and Output 10/02/20 10/02/20 10/02/20 06:59 14:59 22:59 Intake Total 1440 250 Balance 1440 250 Intake: Intake, IV Titration 1440 Amount Magnesium Sulfate-D5w Pmx 200 1 gm In Dextrose/Water 1 100ml.bag @ 100 mls/hr IVPB Q1H PIPE Rx#: [id number] Sodium Chloride 0.9% 1, 1240 000 ml @ 130 mls/hr IV . Q7H42M PIPE Rx#:[id number] Oral 250 Other: Voiding Method Toilet Toilet # Voids 0 Weight 92.986 kg 91.9 kg General: well nourished, well developed, NAD. Vitals reviewed Eyes: PERRL, EOMI, conjunctiva normal HENT: normocephalic, mucus membranes moist Neck: supple, no JVD Lungs: normal respiratory effort, no wheezes or rales CV: Regular rate and rhythm, no murmur. Peripheral pulses 2+ Abdomen: soft, nondistended, no organomegaly Lymph: no cervical or axillary LAD Skin: warm and dry. Neuro: A&Ox3, normal mood and affect Results CBC & Chem 7: 10/02/20 01:38 10/02/20 17:24 Labs: Abnormal Lab Results - Last 24 Hours (Table) 10/02/20 10/02/20 Range/Units 01:38 02:54 BUN 21 H (9-20) mg/dL Glucose 117 H (74-99) mg/dL U Tricyclic Antidepress Detected H (NotDetected) U Marijuana (THC) Screen Detected H (NotDetected) Thrombosis Risk Factor Assmnt - Choose All That Apply Any of the Below Risk Factors Present?: No Assessment and Plan (1) QT prolongation Status: Acute Code(s): R94.31 - ABNORMAL ELECTROCARDIOGRAM [ECG] [EKG] SNOMED Code(s): 501692246 (2) Overdose Status: Acute Code(s): T50.901A - POISONING BY UNSP DRUG/MEDS/BIOL SUBST, ACCIDENTAL, INIT SNOMED Code(s): 81883904 Plan: 1. Seroquel overdose. Poison control contacted and pt given bicarb. He is medically stable today. Psychiatry consulted for further evaluation
--- NOTE | 2020-10-02 22:26 | P.DS ---
Providers Date of admission: 10/02/20 04:27 Expected date of discharge: 10/02/20 Attending physician: Ramana Umana MD Consults: 10/02/20 03:56 Consult Physician Routine Consulting Provider: Omar Ford Consult Reason/Comments: suicidal, seroquel overdose Do you want consulting provider notified?: Yes Primary care physician: Emily Goldberg - Discharge Diagnosis(es) (1) QT prolongation Status: Acute (2) Overdose Status: Acute Hospital Course: Ra Roberson is a 25 yo M with PMH of depression, bipolar disorder who was brought to the ED via EMS after an overdose of seroquel. He states he got into an argument with his fiance yesterday as well as financial difficulties. He states he just became overwhelmed and took about 20 of his seroquel. Pt states this was not a suicide attempt but a cry for help and he denies suicidal ideation at this time. He vomited after and then his fiance called EMS. On presentation his vitals and labs were stable, EKG NSR with QTc 430. Pt admitted to medicine and seen by psychiatry. He was monitored and given bicarb as well as calcium per poison control. Pt cleared by psych and seroquel stopped, he will now start abilify 10 mg qam and follow up with PCP in clinic. Patient Condition at Discharge: Stable Plan - Discharge Summary New Discharge Prescriptions: Continue lamoTRIgine [lamoTRIgine ER] 50 mg PO HS Omeprazole 20 mg PO HS Diphenoxylate HCl/Atropine [Lomotil 2.5-0.025 mg Tablet] 2 tab PO BID PRN PRN Reason: Diarrhea QUEtiapine FUMARATE 50 - 100 mg PO HS Discharge Medication List Diphenoxylate HCl/Atropine [Lomotil 2.5-0.025 mg Tablet] 2 tab PO BID PRN 09/03/20 [History] Omeprazole 20 mg PO HS 09/03/20 [History] lamoTRIgine [lamoTRIgine ER] 50 mg PO HS 09/03/20 [History] QUEtiapine FUMARATE 50 - 100 mg PO HS 10/02/20 [History] Follow up Appointment(s)/Referral(s): Ramana Umana MD [STAFF PHYSICIAN] - 1 Week (Please call to schedule follow up) Patient Instructions/Handouts: Depression (DC) Discharge Disposition: HOME SELF-CARE Care Plan Goals (MU): Follow up with CM resources
[2020-10-03] MEDS ORDERED: ARIPiprazole 10 MG TAB PO SCH (09:00)
== END 2020-10-02 18:45 | disposition home or self-care (01) ==
LOC: EC 01:27 → 3SCARD 04:27 → INTOOBSV 04:27 → UNDODISIN 18:45
PROVIDERS: ADMIT Family Medicine; ATTEND Family Medicine
DX: T43.592A Poisoning by other antipsychotics and neuroleptics, intentional self-harm, initial encounter (principal); R94.31 Abnormal electrocardiogram [ECG] [EKG]; F31.9 Bipolar disorder, unspecified; F43.25 Adjustment disorder with mixed disturbance of emotions and conduct; F41.9 Anxiety disorder, unspecified; K50.90 Crohn's disease, unspecified, without complications; F17.200 Nicotine dependence, unspecified, uncomplicated; F12.90 Cannabis use, unspecified, uncomplicated; Z59.9 Problem related to housing and economic circumstances, unspecified; Z79.899 Other long term (current) drug therapy; Z80.9 Family history of malignant neoplasm, unspecified
CPT/HCPCS: 96374; 96375; 93005 ×2; 82075; 96361; 99285; 36415; 80053; 83735; 85025; 80306; 83520; 80143; G0378; G0480; J3475; 80320; 80329

== ENCOUNTER 2022-01-14 15:29 | Observation (INO) | payer OTHER ==
[2022-01-14] MEDS ORDERED: HYDROmorphone 1 MG/ML 1 ML SYRINGE IVP STA (15:52)
[2022-01-14] MEDS ORDERED: SODIUM CHLORIDE 0.9% 500 ML 500 ML IV ONE (15:52)
--- NOTE | 2022-01-14 15:59 | ED ---
General Adult HPI - General Chief complaint: Extremity Injury, Upper Stated complaint: IHS-R arm injury Time Seen by Provider: 01/14/22 15:45 Source: patient, RN notes reviewed, old records reviewed Mode of arrival: ambulatory Limitations: no limitations - History of Present Illness Initial comments: 26-year-old male presenting for evaluation right upper extremity pain. 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 He was seen at urgent care around noon today and apparently had x-rays performed which she reports were negative for fracture. He's had severe pain in this arm since the injury. He was told to present to the emergency department for evaluation. Denies any injury other than the right upper extremity. - Related Data Home Medications Medication Instructions Recorded Confirmed Diphenoxylate HCl/Atropine 2 tab PO BID PRN 09/03/20 10/02/20 [Lomotil 2.5-0.025 mg Tablet] Omeprazole 20 mg PO HS 09/03/20 10/02/20 lamoTRIgine [lamoTRIgine ER] 50 mg PO HS 09/03/20 10/02/20 QUEtiapine FUMARATE 50 - 100 mg PO HS 10/02/20 10/02/20 Allergies Allergy/AdvReac Type Severity Reaction Status Date / Time diphenhydramine AdvReac Itching Verified 01/14/22 15:31 [From Benadryl] Review of Systems ROS Statement: Those systems with pertinent positive or pertinent negative responses have been documented in the HPI. ROS Other: All systems not noted in ROS Statement are negative. Past Medical History Past Medical History: No Reported History Additional Past Medical History / Comment(s): Crohns, IBS History of Any Multi-Drug Resistant Organisms: None Reported Past Surgical History: Orthopedic Surgery Additional Past Surgical History / Comment(s): rt hand Past Psychological History: Anxiety, Bipolar, Depression Smoking Status: Vaper Past Alcohol Use History: None Reported Past Drug Use History: Marijuana - Past Family History Father Family Medical History: Cancer General Exam Limitations: no limitations General appearance: alert, in distress Head exam: Present: atraumatic, normocephalic Eye exam: Present: normal appearance, PERRL ENT exam: Present: normal exam Neck exam: Present: normal inspection. Absent: tenderness, meningismus Respiratory exam: Present: normal lung sounds bilaterally. Absent: respiratory distress Cardiovascular Exam: Present: regular rate, normal rhythm GI/Abdominal exam: Present: soft. Absent: distended, tenderness, guarding Extremities exam: Present: other (Right upper extremity:, Decreased range of motion at the digits secondary to pain. He has a 2+ radial pulse. There is no significant external signs of trauma. His compartments are somewhat tense.) Neurological exam: Present: alert, oriented X3 Course Vital Signs 01/14/22 15:31 Temperature 98 F Pulse Rate 102 H Respiratory 18 Rate Blood Pressure 141/83 O2 Sat by Pulse 98 Oximetry - Reevaluation(s) Reevaluation #1: 01/14/22 15:55 I [address] page orthopedics for urgent consultation. Medical Decision Making - Medical Decision Making 26-year-old male with crush injury to the right upper extremity. X-rays are performed of the humerus and forearm. There is no bony abnormality. Patient is in severe pain. He decreased range of motion at the hand and decreased s ensation. Distal pulses are intact. There is concern for compartment syndrome although his compartments are soft at this time. I discussed case with orthopedic surgery Dr. Hernandez, who is able to evaluate the patient emergency department. He will be kept overnight to monitor closely. Pain medicine has been ordered. - Lab Data Result diagrams: 01/14/22 16:12 01/14/22 16:12 Lab Results 01/14/22 01/14/22 01/14/22 Range/Units 16:12 16:12 16:12 WBC 7.8 (3.8-10.6) k/uL RBC 4.96 (4.30-5.90) m/uL Hgb 15.3 (13.0-17.5) gm/dL Hct 45.6 (39.0-53.0) % MCV 92.0 (80.0-100.0) fL MCH 30.9 (25.0-35.0) pg MCHC 33.6 (31.0-37.0) g/dL RDW 12.7 (11.5-15.5) % Plt Count 317 (150-450) k/uL MPV 7.0 Neutrophils % 50 % Lymphocytes % 42 % Monocytes % 4 % Eosinophils % 1 % Basophils % 0 % Neutrophils # 3.9 (1.3-7.7) k/uL Lymphocytes # 3.3 (1.0-4.8) k/uL Monocytes # 0.3 (0-1.0) k/uL Eosinophils # 0.1 (0-0.7) k/uL Basophils # 0.0 (0-0.2) k/uL PT 10.1 (9.0-12.0) sec INR 0.9 (<1.2) APTT 24.9 (22.0-30.0) sec Sodium 136 L (137-145) mmol/L Potassium 4.1 (3.5-5.1) mmol/L Chloride 103 (98-107) mmol/L Carbon Dioxide 23 (22-30) mmol/L Anion Gap 10 mmol/L BUN 18 (9-20) mg/dL Creatinine 0.79 (0.66-1.25) mg/dL Est GFR (CKD-EPI)AfAm >90 (>60 ml/min/1.73 sqM) Est GFR (CKD-EPI)NonAf >90 (>60 ml/min/1.73 sqM) Glucose 129 H (74-99) mg/dL Plasma Lactic Acid Zechariah (0.7-2.0) mmol/L Calcium 9.3 (8.4-10.2) mg/dL Magnesium 2.0 (1.6-2.3) mg/dL Total Bilirubin 0.5 (0.2-1.3) mg/dL AST 31 (17-59) U/L ALT 32 (4-49) U/L Alkaline Phosphatase 62 (38-126) U/L Creatine Kinase 262 H (55-170) U/L Total Protein 7.7 (6.3-8.2) g/dL Albumin 4.7 (3.5-5.0) g/dL 01/14/22 Range/Units 16:12 WBC (3.8-10.6) k/uL RBC (4.30-5.90) m/uL Hgb (13.0-17.5) gm/dL Hct (39.0-53.0) % MCV (80.0-100.0) fL MCH (25.0-35.0) pg MCHC (31.0-37.0) g/dL RDW (11.5-15.5) % Plt Count (150-450) k/uL MPV Neutrophils % % Lymphocytes % % Monocytes % % Eosinophils % % Basophils % % Neutrophils # (1.3-7.7) k/uL Lymphocytes # (1.0-4.8) k/uL Monocytes # (0-1.0) k/uL Eosinophils # (0-0.7) k/uL Basophils # (0-0.2) k/uL PT (9.0-12.0) sec INR (<1.2) APTT (22.0-30.0) sec Sodium (137-145) mmol/L Potassium (3.5-5.1) mmol/L Chloride (98-107) mmol/L Carbon Dioxide (22-30) mmol/L Anion Gap mmol/L BUN (9-20) mg/dL Creatinine (0.66-1.25) mg/dL Est GFR (CKD-EPI)AfAm (>60 ml/min/1.73 sqM) Est GFR (CKD-EPI)NonAf (>60 ml/min/1.73 sqM) Glucose (74-99) mg/dL Plasma Lactic Acid Zechariah 1.5 (0.7-2.0) mmol/L Calcium (8.4-10.2) mg/dL Magnesium (1.6-2.3) mg/dL Total Bilirubin (0.2-1.3) mg/dL AST (17-59) U/L ALT (4-49) U/L Alkaline Phosphatase (38-126) U/L Creatine Kinase (55-170) U/L Total Protein (6.3-8.2) g/dL Albumin (3.5-5.0) g/dL Disposition Clinical Impression: Crush injury arm Disposition: ADMITTED IP TO THIS [facility] Condition: Stable Is patient prescribed a controlled substance at d/c from ED?: No Referrals: None,Stated [Primary Care Provider] - 1-2 days Time of Disposition: 16:59
[2022-01-14 16:17] LABS: Basophils % (A) 0 %; Eosinophils # (A) 0.1 k/uL (0-0.7); Eosinophils % (A) 1 %; HCT 45.6 % (39.0-53.0); HGB 15.3 gm/dL (13.0-17.5); Lymphocytes # (A) 3.3 k/uL (1.0-4.8); Lymphocytes % (A) 42 %; MCH 30.9 pg (25.0-35.0); MCHC 33.6 g/dL (31.0-37.0); Monocytes # (A) 0.3 k/uL (0-1.0); Monocytes % (A) 4 %; Neutrophils # (A) 3.9 k/uL (1.3-7.7); Neutrophils % (A) 50 %; Platelet Count 317 k/uL (150-450); RBC 4.96 m/uL (4.30-5.90); RDW 12.7 % (11.5-15.5); WBC 7.8 k/uL (3.8-10.6)
[2022-01-14 16:24] LABS: INR 0.9 (<1.2); Partial Thromboplastin Time 24.9 sec (22.0-30.0); Prothrombin Time 10.1 sec (9.0-12.0)
[2022-01-14 16:26] LABS: ALT 32 U/L (4-49); AST 31 U/L (17-59); African American GFR (CKD) >90 (>60 ml/min/1.73 sqM); Albumin 4.7 g/dL (3.5-5.0); Alkaline Phosphatase 62 U/L (38-126); Anion Gap 10 mmol/L; Blood Urea Nitrogen 18 mg/dL (9-20); Calcium 9.3 mg/dL (8.4-10.2); Carbon Dioxide 23 mmol/L (22-30); Chloride 103 mmol/L (98-107); Creatine Kinase 262 U/L (55-170); Glucose 129 mg/dL (74-99); Non-African American GFR(CKD) >90 (>60 ml/min/1.73 sqM); Potassium 4.1 mmol/L (3.5-5.1); Sodium 136 mmol/L (137-145); Total Bilirubin 0.5 mg/dL (0.2-1.3); Total Protein 7.7 g/dL (6.3-8.2)
--- NOTE | 2022-01-14 16:45 | XR ---
EXAMINATION TYPE: XR humerus RT DATE OF EXAM: 01/14/2022 COMPARISON: NONE HISTORY: Injury. Pain TECHNIQUE: 2 views FINDINGS: Shoulder joint and elbow joint appear intact. No fracture seen. There is no pathologic calc ification IMPRESSION: Negative right humerus exam. No fracture seen.
--- NOTE | 2022-01-14 16:46 | XR ---
EXAMINATION TYPE: XR forearm RT DATE OF EXAM: 01/14/2022 COMPARISON: NONE HISTORY: Pain TECHNIQUE: 3 views FINDINGS: Radius and ulna appear intact. I see no fracture nor dislocation. Elbow joint and wrist ya nt appear intact. IMPRESSION: Negative right forearm exam.
[2022-01-14] MEDS ORDERED: HYDROmorphone 0.5 MG/0.5 ML SYRINGE IVP PRN (16:57)
[2022-01-14] MEDS ORDERED: NALOXONE 0.4 MG/ML 1 ML VIAL IV PRN (16:57)
[2022-01-14] MEDS: SODIUM CHLORIDE 0.9% 1,000 ML IV SCH (17:23)
[2022-01-14] MEDS: HYDROmorphone 1 MG/ML 1 ML SYRINGE IVP PRN (19:26)
--- NOTE | 2022-01-14 21:12 | P.HPOR ---
History of Present Illness H&P Date: 01/14/22 Chief Complaint: Right upper extremity pain 26-year-old male presenting for evaluation right upper extremity pain. 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 He states the volar mid/proximal fo rearm took the majority of the trauma. He was seen at urgent care around noon today and apparently had x-rays performed which she reports were negative for fracture. He states he's had continued severe pain in this arm since the injury and was told to present to the emergency department for evaluation. He states this happened around 11 o'clock this morning. He has pain with most movements of the elbow/wrist. He does have a history of reconstructive surgery on the right middle finger in the past. Review of Systems All systems: negative Past Medical History Past Medical History: No Reported History Additional Past Medical History / Comment(s): Crohns, IBS History of Any Multi-Drug Resistant Organisms: None Reported Past Surgical History: Orthopedic Surgery Additional Past Surgical History / Comment(s): rt hand Past Psychological History: Anxiety, Bipolar, Depression Smoking Status: Vaper Past Alcohol Use History: None Reported Past Drug Use History: Marijuana - Past Family History Father Family Medical History: Cancer Medications and Allergies Home Medications Medication Instructions Recorded Confirmed Type EPINEPHrine (Auto Inject) [Epipen] 0.3 mg IM ONCE PRN 01/14/22 01/14/22 History Allergies Allergy/AdvReac Type Severity Reaction Status Date / Time apricot Allergy Anaphylaxis Verified 01/14/22 17:17 bee venom protein (honey bee) Allergy Anaphylaxis Verified 01/14/22 17:17 diphenhydramine Allergy Anaphylaxis Verified 01/14/22 17:17 [From Benadryl] /Itching Physical Examination Osteopathic Statement: *. No significant issues noted on an osteopathic structural exam other than those noted in the History and Physical/Consult. - Elbow right Location of pain: other (RUE: No signs of external bruising, erythema, trauma or open wounds on upper arm, elbow, wrist or hand. Upper arm and forearm and hand compartments are soft and compressible on exam with mild swelling present around humeral region. Patient TTP over humerus, elbow and forearm) Stiffness: none Swelling: none Other symptoms: none Tenderness with palpation: none Full ROM: yes ROM: flexion: normal ROM: extension: normal ROM: supination: normal ROM: pronation: normal Strength: flexion: 5/5 Strength: extension: 5/5 Strength: supination: 5/5 Strength: pronation: 5/5 Strength: career resource specialist: 5/5 - Wrist & Hand right Location of pain: other (AIN/PIN/Median/Ulnar Motor intact but limited due to pain. SILT Radial/ulnar nerve. Subjective decreased sensation in median and ulnar nerve distribution. 2+4 R/U Pulses. Pain with flexion extension movements of wrist/elbow) - Cervical Spine Neck pain: none Tenderness with palpation: none Full ROM: yes ROM: flexion: normal ROM: extension: normal ROM: rotation right: normal ROM: rotation left: normal ROM: lateral flexion right: normal ROM: lateral flexion left: normal - Lumbar Spine Back pain: none Tenderness with palpation: none Appearance: normal Full ROM: yes ROM: flexion: normal ROM: extension: normal ROM: rotation right: normal ROM: rotation left: normal ROM: lateral flexion right: normal ROM: lateral flexion left: normal Results - Labs Labs: Abnormal Lab Results - Last 24 Hours (Table) 01/14/22 Range/Units 16:12 Sodium 136 L (137-145) mmol/L Glucose 129 H (74-99) mg/dL Creatine Kinase 262 H (55-170) U/L H & H 01/14/22 Range/Units 16:12 Hgb 15.3 (13.0-17.5) gm/dL Hct 45.6 (39.0-53.0) % Coagulation 01/14/22 Range/Units 16:12 INR 0.9 (<1.2) Result Diagrams: 01/14/22 16:12 01/14/22 16:12 - Diagnostic results Comments: X-rays of humerus and forearm demonstrate no acute fracture/ dislocation. Assessment and Plan Assessment: 1.) Right arm/forearm crush injury Plan: Patient was seen and examined by myself in the emergency department. On exam his compartments are soft and compressible of the upper arm, forearm and hand with no signs of outside trauma, bruising, abrasions, or erythema with a mild amount of swelling around the distal humeral region. He is in pain and has subjective paresthesias but all compartments remain soft with no signs of compartment syndrome requiring fasciotomy at this time. He will require close monitoring over the next 24-48 hours. If any signs or symptoms of compartment syndrome develop we discussed the need for surgical intervention. Currently he seems to be having more of a neuropraxia type injury due to the trauma to the anterior forearm. He is to rest, ice and elevate the arm on multiple pillows if tolerated and will be re-evaluated in the AM by the orthopedic team. He is to remain NPO after midnight if any surgical intervention would be required tomorrow after re- evaluation. Yousuf Hernandez DO Orthopedic Hand/Upper Extremity Surgeon Time with Patient: Less than 30
[2022-01-15] MEDS: HYDROmorphone 1 MG/ML 1 ML SYRINGE IVP PRN ×5 (01:56→20:44)
[2022-01-15] MEDS ORDERED: MORPHINE SULFATE 2 MG/ML SYRINGE IVP STA (02:44)
--- NOTE | 2022-01-15 03:01 | P.EN ---
A- team Note: Indication: R arm pain and numbness Arrived on Scene to find: Patient complaining of 9/10 R forearm pain. Vital signs reviewed. Chart reviewed and case discussed with the RN. The patient suffered a crush Patient seen and examined at bedside. The patient reports that over the past few hours, his right forearm and hand numbness is gradually worsened and he is now unable to perform pincer grasp with his right hand. General: [non toxic], tearful, [appears at stated age] Derm: [warm], [dry] Head: [atraumatic], [normocephalic], [symmetric] Eyes: [EOMI], [no lid lag], [anicteric sclera] Mouth: [no lip lesion], [mucus membranes moist] Cardiovascular: [S1S2 reg], [no murmur], [positive posterior tibial pulse bilateral], Lungs: [CTA bilateral], [no rhonchi, no rales] , [no accessory muscle use] Abdominal: [soft], [ nontender to palpation], [no guarding], [no appreciable organomegaly] Ext: Right forearm minimal swelling, no tense skin or tissue noted, R radial pulse 2+, diffuse R forearm tenderness, diminished active and passive ROM of R digits due to pain, [no gross muscle atrophy], [no contractures] Neuro: [ CN II-XI grossly intact], [no focal neuro deficits] Psych: [Alert], [oriented], [appropriate affect] Assessment: R forearm pain, following crush injury Plan: Discussed case with Orthopedics CHIEF LEARNING OFFICER Jg Lockhart in extensive detail. Outlined concerns for possible compartment syndrome. Concerns will be discussed by Jg with Dr Hernandez. Continue with pain control. Monitor pulses, temperature, and color of the R forearm and hand. A Total of 40 minutes of critical care time was spent on the complex care of this patient.
--- NOTE | 2022-01-15 05:17 | CT ---
EXAMINATION TYPE: CT upper extremity RT wo con DATE OF EXAM: 01/15/2022 COMPARISON: None HISTORY: pain CT DLP: 1433.4 mGycm Automated exposure control for dose reduction was used. Images obtained from the top of the shoulder joint to the proximal forearm with no contrast. FINDINGS: The glenohumeral joint is intact. AC joint appears normal. No evidence of shoulder joint fracture. Th e scapula appears intact. The right clavicle is intact. The elbow joint appears intact. No evidence o f a soft tissue mass. I see no bony destructive process. Exam limited by lack of contrast no sign of elbow joint effusion. IMPRESSION: Negative CT scan of the right humerus. No fracture seen. No evidence of hematoma.
[2022-01-15] MEDS: SODIUM CHLORIDE 0.9% 1,000 ML IV SCH ×2 (06:25→17:25)
[2022-01-15 09:37] LABS: African American GFR (CKD) >90 (>60 ml/min/1.73 sqM); Anion Gap 6 mmol/L; Blood Urea Nitrogen 15 mg/dL (9-20); Calcium 8.5 mg/dL (8.4-10.2); Carbon Dioxide 26 mmol/L (22-30); Chloride 107 mmol/L (98-107); Creatine Kinase 189 U/L (55-170); Glucose 96 mg/dL (74-99); Non-African American GFR(CKD) >90 (>60 ml/min/1.73 sqM); Potassium 4.2 mmol/L (3.5-5.1); Sodium 139 mmol/L (137-145)
[2022-01-16] MEDS: SODIUM CHLORIDE 0.9% 1,000 ML IV SCH ×2 (06:26→20:44)
[2022-01-16] MEDS: HYDROmorphone 1 MG/ML 1 ML SYRINGE IVP PRN ×6 (06:26→23:07)
--- NOTE | 2022-01-16 06:43 | P.PN ---
Progress Note - Text Progress Note Date: 01/15/22 Subjective: Patient is seen and examined today. He has notice some mild improvement in the mobility and sensation in the arm but still states he has weakness and numbness in the hand and forearm. When further details of the inciting event were discussed he states as the bricks fell the main force was a caudally based force on the shoulder initially, followed by him falling down on to an outstretched hand. His arm was not pinned or crushed under bricks for an prolonged period of time. He states he has a sensation of burning in the armpit but has not noticed an increase swelling or any other areas of new pain or weakness. Physical Examination: RUE: AIN/PIN/Radial/Ulnar/Median motor slightly intact as patient is able to flicker digits with flexion extension. Radial/Ulnar/Median SILT but diminished. 2pt discrimination is greater than 8mm in all digits. Patient notes that middle finger is experiencing the most numbness. SILT along volar and dorsal forearm with greater than 8mm of 2pt discrimination. 2+/4 Radial/Ulnar pulses palpated. 2+/4 radial and ulnar pulses. The hand, forearm and arm are warm and well perfused with all compartments soft and compressible, no swelling appreciated. No scapular winging present. No signs of ba's syndrome when eyes examined. Deltoid 3/5, Biceps 3/5. Triceps 4/5. Imaging: CT of the right upper extremity reveals no abnormality with no hematoma. Impression: 1.) Right upper extremity crush injury. 2.) Possible brachial plexus injury. Plan: Diagnosis and treatment options were discussed with the patient. He continues to have no evidence of compartment syndrome and his trending CK value has returned to near normal after being slightly elevated upon admission. We discussed further details of his injury and his symptoms are most consisted with a possible traction neuropraxia to the upper extremity consistent with a brachial plexus injury. His exam is most consistent with post ganglionic injury and currently does not have a flail extremity or any signs of root avulsion and has weak but intact motor and incomplete but not absent sensation to the hand and forearm. We will obtain MRI of right brachial plexus and recommendations will be given following imaging findings. -Yousuf Hernandez DO Orthopedic Hand/Upper Extremity Surgeon
--- NOTE | 2022-01-16 18:55 | MR ---
EXAMINATION TYPE: MR humerus RT wo con DATE OF EXAM: 01/16/2022 COMPARISON: None HISTORY: Right arm crush/traction injury/numbness, humerus swelling/multiple lumps at distal humerus with markers placed, one under armpit unable to vincent due to patient pain. Multiplanar multiecho imaging of the right humerus without contrast. Humeral shaft is intact. No fracture seen. No evidence of bone edema. There is large area of subcutan eous edema over the anterior aspect of the mid upper arm. This measures 9 cm in length and thickness up to 1.2 cm. The proximal radius and ulna appear intact with fairly normal signal pattern. Muscle bu ndles appear intact. There is also some subcutaneous edema on the medial aspect of the proximal humer us close to the axilla. IMPRESSION: No fracture. Subcutaneous edema on the anterior aspect of the upper arm and also near the axilla. No drainable fluid collection.
--- NOTE | 2022-01-16 23:06 | P.PN ---
Progress Note - Text Progress Note Date: 01/16/22 Subjective: Patient is seen and examined today. He has notice some continued improvement in the mobility and sensation in the arm and now today has regained some sensation in the thumb and small finger but still states he has weakness and numbness in the hand and forearm. The numbness is predominetly now involving the middle and index fingers. He also notes over the last 12 hours he has felt a bump develop on the anterior aspect of his bicep that wasn't there yesterday. Physical Examination: RUE: AIN/PIN/Radial/Ulnar/Median motor slightly intact as patient is able to flicker digits with flexion extension. Radial/Ulnar/Median SILT but diminished. Patient notes that middle finger is experiencing the most numbness. Improvement in movement and sensation of small finger and thumb. 2+/4 Radial/Ulnar pulses palpated. 2+/4 radial and ulnar pulses. The hand, forearm and arm are warm and well perfused with all compartments soft and compressible, no swelling appreciated. No scapular winging present. No signs of ba's syndrome when eyes examined. Deltoid 4/5, Biceps 3/5. Triceps 4/5. Impression: 1.) Right upper extremity crush injury. 2.) Possible brachial plexus injury vs median nerve neuropraxia due to blunt trauma in upper arm Plan: Diagnosis and treatment options were discussed with the patient. He seems to be slowly improving over the last 24 hours and the median nerve distribution appears to still be affected. MRI of right brachial plexus/humerus is ordered and further recommendations will be given following imaging findings. -Yousuf Hernandez DO Orthopedic Hand/Upper Extremity Surgeon
[2022-01-17] MEDS: HYDROmorphone 1 MG/ML 1 ML SYRINGE IVP PRN ×3 (06:21→12:24)
[2022-01-17 08:26] VITALS: BP 113/74; PULSE 69; RESP 18; TEMP 97.6
--- NOTE | 2022-01-17 09:17 | P.PN ---
Progress Note - Text Progress Note Date: 01/17/22 Subjective: Patient is seen and examined today. He has noticed continued improvement in the mobility and sensation in the arm and now today has regained additional sensation in the thumb and small finger but still states he has weakness and numbness in the hand and forearm. The numbness is predominetly now involving the middle finger. The bump that developed in the last 24 hours on the anterior aspect of his bicep is stable and tender to palpation. MRI was completed last night. Physical Examination: RUE: AIN/PIN/Radial/Ulnar/Median motor slightly intact as patient is able to move digits with flexion extension, improved vs yesterday. Radial/Ulnar/Median SILT but diminished. Patient notes that middle finger is experiencing the most numbness. Improvement in movement and sensation of small finger and thumb. 2+/4 Radial/Ulnar pulses palpated. 2+/4 radial and ulnar pulses. The hand, forearm and arm are warm and well perfused with all compartments soft and compressible, no swelling appreciated. No scapular winging present. No signs of ba's syndrome when eyes examined. Deltoid 4/5, Biceps 3/5. Triceps 4/5. Bruising present now to anterior bicep region. Negative hook test. Minimal pain with passive extension/flexion of fingers. Imaging: MRI was reviewed of humerus without contrast due to patients allergy to contrast that revealed increased signal in subcutaneous tissues along anterior/medial as pect of humeral region. No hematoma, bone bruising or evidence of other trauma. Mild edema in subcutaneous tissues of axilla. Impression: 1.) Right upper extremity crush injury. 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 He seems to be slowly improving over the last 24 hours and the median nerve distribution appears to still be affected but slowly improving. MRI findings are consistent with likely neuropraxia type injury of median nerve due to blunt trauma to the upper arm. We discussed prognosis and that no surgical intervention is needed at this time and that we will plan to watch and observe for nerve recovery over the following weeks/ months. He states he would like to return to work on Wednesday with light duty left handed work only until follow up in the outpatient setting in 2 weeks. He may wear the sling for comfort but may come out of the sling to work on range of motion. -Yousuf Hernandez DO Orthopedic Hand/Upper Extremity Surgeon
[2022-01-17] MEDS: SODIUM CHLORIDE 0.9% 1,000 ML IV SCH (10:34)
--- NOTE | 2022-01-19 08:04 | MR ---
EXAMINATION TYPE: MR brachial plexus RT wo con DATE OF EXAM: 01/19/2022 COMPARISON: CT right humerus January 15, 2022 HISTORY: Right arm crush/traction injury/numbness, humerus swelling/ lump. Standard multiplanar, multisequence MRI departmental protocol Multiplanar, multisequence images of the thorax were acquired without contrast. FINDINGS: Examined with suboptimal as there is motion artifact degradation Visualized portion the bra chial plexus shows normal mid to lower cervical roots trunks and divisions are felt present. No disco ntinuity identified as they course between the anterior and middle scalene muscles. No focal T2 hyper intense collection or pseudomeningocele. No obvious thickening or T2 hyperintense signal within the c ervical nerves. No obvious solid or cystic mass or fluid collection in the right supraclavicular jacinta on. There are symmetric prominent but subcentimeter bilateral neck lymph nodes which is nonspecific f inding. IMPRESSION: As above. No obvious focal defect or cervical nerve increased signal.
--- NOTE | 2022-01-28 09:34 | P.DS ---
Providers Date of admission: 01/14/22 16:57 Attending physician: Yousuf Hernandez DO Primary care physician: Stated None Patient Condition at Discharge: Stable Plan - Discharge Summary New Discharge Prescriptions: No Action Ibuprofen [Motrin] 600 mg PO Q6HR PRN #30 tab PRN Reason: Pain Famotidine [Pepcid] 20 mg PO BID #30 tablet Cyclobenzaprine [Flexeril] 5 mg PO TID 3 Days #9 tab Gabapentin [Neurontin] 100 mg PO BID #4 cap EPINEPHrine (Auto Inject) [Epipen] 0.3 mg IM ONCE PRN PRN Reason: Anaphylaxis Discharge Medication List EPINEPHrine (Auto Inject) [Epipen] 0.3 mg IM ONCE PRN 01/14/22 [History] Cyclobenzaprine [Flexeril] 5 mg PO TID 3 Days #9 tab 01/24/22 [Rx] Famotidine [Pepcid] 20 mg PO BID #30 tablet 01/24/22 [Rx] Gabapentin [Neurontin] 100 mg PO BID #4 cap 01/24/22 [Rx] Ibuprofen [Motrin] 600 mg PO Q6HR PRN #30 tab 01/24/22 [Rx] Follow up Appointment(s)/Referral(s): Yousuf Hernandez DO [Doctor of Osteopathic Medicine] - 2 Weeks None,Stated [Primary Care Provider] - 1-2 days Patient Instructions/Handouts: Compartment Syndrome (DC) Activity/Diet/Wound Care/Special Instructions: Sling for comfort to right upper extremity. Okay to come out of sling several times a day to work on ROM. Rest, Ice and elevate the right upper extremity. Okay to return to work 01/19/22 with left handed work only with no use of right arm until follow in 2 weeks. Take motrin/tylenol as needed for pain, RX for norco given for more severe pain. Discharge Disposition: HOME SELF-CARE
== END 2022-01-17 14:22 | disposition home or self-care (01) ==
LOC: EC 15:29 → 6NMEDSUR 16:57
PROVIDERS: ADMIT Orthopaedic Surgery Hand Surgery; ATTEND Orthopaedic Surgery Hand Surgery
DX: S47.1XXA Crushing injury of right shoulder and upper arm, initial encounter (principal); S54.11XA Injury of median nerve at forearm level, right arm, initial encounter; K50.90 Crohn's disease, unspecified, without complications; F31.9 Bipolar disorder, unspecified; F41.9 Anxiety disorder, unspecified; Z91.030 Bee allergy status; Z88.8 Allergy status to other drugs, medicaments and biological substances; Z91.018 Allergy to other foods; Z98.890 Other specified postprocedural states; W20.1XXA Struck by object due to collapse of building, initial encounter; Y92.69 Other specified industrial and construction area as the place of occurrence of the external cause; Y99.0 Civilian activity done for income or pay; Z80.9 Family history of malignant neoplasm, unspecified; F17.290 Nicotine dependence, other tobacco product, uncomplicated
CPT/HCPCS: 96376 ×4; 96361 ×4; 96375; 96374; 99285; 36415; 80053; 80048; 82550 ×2; 83605; 83735; 85025; 85610; 85730; 73060; 73090; 73200; 71550; 73218; G0378 ×4; J2270; J1170 ×4

== ENCOUNTER 2022-01-23 19:09 | Observation (INO) | payer BC, OTHER ==
[2022-01-24] MEDS ORDERED: SODIUM CHLORIDE 0.9% 1,000 ML IV STA (00:13)
[2022-01-24] MEDS ORDERED: HYDROmorphone 1 MG/ML 1 ML SYRINGE IVP STA (00:14)
--- NOTE | 2022-01-24 00:14 | ED ---
Skin/Abscess/FB HPI - General Chief complaint: Skin/Abscess/Foreign Body Stated complaint: Revisit compartment syndrome Time Seen by Provider: 01/23/22 23:45 Source: patient, RN notes reviewed, old records reviewed Mode of arrival: ambulatory Limitations: no limitations - History of Present Illness Initial comments: This is a 26-year-old male to the emergency room today. Patient presents today for evaluation regards to severe right upper extremity pain swelling decreased movement. Decreased movement of his right hand.patient had increase with coug melonie. Increased pain and has had decreased range of motion. MD complaint: discoloration, other (swelling of right upper extremity) -: days(s) Tetanus Up to Date: yes Location: RUE, R hand Severity: severe Severity scale (1-10): 10 Quality: stabbing Consistency: constant Improves with: none Worsens with: none Context: none Associated symptoms: arthralgias, myalgias Treatments Prior to Arrival: none - Related Data Home Medications Medication Instructions Recorded Confirmed EPINEPHrine (Auto Inject) [Epipen] 0.3 mg IM ONCE PRN 01/14/22 01/14/22 Previous Rx's Medication Instructions Recorded HYDROcodone/APAP 5-325MG [[place] 1 tab PO Q8HR PRN #24 tab 01/17/22 5-325] Allergies Allergy/AdvReac Type Severity Reaction Status Date / Time apricot Allergy Anaphylaxis Verified 01/23/22 21:05 bee venom protein (honey bee) Allergy Anaphylaxis Verified 01/23/22 21:05 diphenhydramine Allergy Anaphylaxis Verified 01/23/22 21:05 [From Benadryl] /Itching Iodinated Contrast Media Allergy Itching Verified 01/23/22 21:05 Review of Systems ROS Statement: Those systems with pertinent positive or pertinent negative responses have been documented in the HPI. ROS Other: All systems not noted in ROS Statement are negative. Past Medical History Past Medical History: No Reported History Additional Past Medical History / Comment(s): Crohns, IBS History of Any Multi-Drug Resistant Organisms: None Reported Past Surgical History: Orthopedic Surgery Additional Past Surgical History / Comment(s): rt hand Past Psychological History: Anxiety, Bipolar, Depression Smoking Status: Vaper Past Alcohol Use History: None Reported Past Drug Use History: Marijuana - Past Family History Father Family Medical History: Cancer General Exam Limitations: no limitations General appearance: alert, in no apparent distress Head exam: Present: atraumatic, normocephalic, normal inspection Eye exam: Present: normal appearance, PERRL, EOMI. Absent: scleral icterus, conjunctival injection, periorbital swelling ENT exam: Present: normal exam, mucous membranes moist Neck exam: Present: normal inspection. Absent: tenderness, meningismus, lymphadenopathy Respiratory exam: Present: normal lung sounds bilaterally. Absent: respiratory distress, wheezes, rales, rhonchi, stridor Cardiovascular Exam: Present: regular rate, normal rhythm, normal heart sounds. Absent: systolic murmur, diastolic murmur, rubs, gallop, clicks GI/Abdominal exam: Present: soft, normal bowel sounds. Absent: distended, tenderness, guarding, rebound, rigid Extremities exam: Present: tenderness (severe right upper arm tenderness swelling redness), normal capillary refill. Absent: full ROM, pedal edema, joint swelling, calf tenderness Back exam: Present: normal inspection Neurological exam: Present: alert, oriented X3, CN II-XII intact Psychiatric exam: Present: normal affect, normal mood Skin exam: Present: warm, dry, intact, normal color. Absent: rash Course Vital Signs 01/23/22 21:02 Temperature 98.4 F Pulse Rate 82 Respiratory 18 Rate Blood Pressure 133/96 O2 Sat by Pulse 97 Oximetry - Reevaluation(s) Reevaluation #1: 01/24/22 00:43 medical record is reviewed Reevaluation #2: 01/24/22 00:43 patient is informed of results and questions have been answered Reevaluation #3: 01/24/22 00:44 patient's pain is currently well improved - Consultations Consultation #1: spoke with orthopedics who is okay to admit this patient Medical Decision Making - Medical Decision Making 26 male to the emergency department today this and presents emergency department today for significant right upper extremity pain he was receiving evaluation for possible compartment syndrome did not need surgery at the time but he started to lose feeling or movement of his right hand which he has been constant but the pain is increasing and the pain is worse. Patient has noted, and the swelling is increased and the pain is increased. - Radiology Data Radiology results: report reviewed (x-ray right upper extremity as well as ultrasound right upper extremity), image reviewed Disposition Clinical Impression: Crush injury arm, Paralysis of right hand, Traumatic hematoma of right upper arm Disposition: ADMITTED IP TO THIS HOSP Condition: Good Is patient prescribed a controlled substance at d/c from ED?: No Referrals: None,Stated [Primary Care Provider] - 1-2 days
[2022-01-24] MEDS ORDERED: NALOXONE 0.4 MG/ML 1 ML VIAL IV PRN (00:31)
[2022-01-24] MEDS ORDERED: LORazepam 2 MG/ML INJ IV PRN (00:31)
--- NOTE | 2022-01-24 00:53 | US ---
EXAMINATION TYPE: US extremity nonvasc mass RT DATE OF EXAM: 01/24/2022 COMPARISON: NONE CLINICAL HISTORY: blood clot. Right upper medial arm area of pain, swelling and redness Right arm: no mass or fluid collection seen, edema seen, no thrombus seen within portion of superfici al cephalic vein at patient's area of concern IMPRESSION: No solid or cystic mass. No free fluid. Cephalic vein is patent. No evidence of venous t hrombosis in the area of concern.
[2022-01-24 01:28] LABS: Basophils % (A) 1 %; Eosinophils # (A) 0.1 k/uL (0-0.7); Eosinophils % (A) 1 %; HCT 46.3 % (39.0-53.0); HGB 15.7 gm/dL (13.0-17.5); Lymphocytes # (A) 3.8 k/uL (1.0-4.8); Lymphocytes % (A) 42 %; MCH 30.9 pg (25.0-35.0); MCHC 33.9 g/dL (31.0-37.0); MCV 91.3 fL (80.0-100.0); Mean Platelet Volume 7.1; Monocytes # (A) 0.6 k/uL (0-1.0); Monocytes % (A) 7 %; Neutrophils # (A) 4.2 k/uL (1.3-7.7); Neutrophils % (A) 46 %; Platelet Count 275 k/uL (150-450); RBC 5.07 m/uL (4.30-5.90)
--- NOTE | 2022-01-24 01:35 | XR ---
EXAMINATION TYPE: XR humerus RT DATE OF EXAM: 01/24/2022 COMPARISON: NONE HISTORY: Pain TECHNIQUE: 2 views FINDINGS: I see no fracture nor dislocation. Joint spaces are normal. Shoulder joint and elbow joint appear intact. IMPRESSION: Negative right humerus exam. No change.
[2022-01-24 01:43] LABS: ALT 30 U/L (4-49); AST 31 U/L (17-59); African American GFR (CKD) >90 (>60 ml/min/1.73 sqM); Albumin 4.8 g/dL (3.5-5.0); Alkaline Phosphatase 69 U/L (38-126); Anion Gap 10 mmol/L; Blood Urea Nitrogen 15 mg/dL (9-20); C Reactive Protein <0.5 mg/dL (<1.0); Calcium 9.3 mg/dL (8.4-10.2); Carbon Dioxide 23 mmol/L (22-30); Chloride 105 mmol/L (98-107); Glucose 92 mg/dL (74-99); Magnesium 2.2 mg/dL (1.6-2.3); Non-African American GFR(CKD) >90 (>60 ml/min/1.73 sqM); Phosphorus 4.5 mg/dL (2.5-4.5); Potassium 4.3 mmol/L (3.5-5.1); Sodium 138 mmol/L (137-145); Total Bilirubin 0.5 mg/dL (0.2-1.3); Total Protein 7.8 g/dL (6.3-8.2)
[2022-01-24] MEDS: SODIUM CHLORIDE 0.9% 1,000 ML IV SCH ×2 (02:45→08:35)
[2022-01-24 04:43] LABS: Partial Thromboplastin Time 24.9 sec (22.0-30.0); Prothrombin Time 10.6 sec (9.0-12.0)
[2022-01-24] MEDS: HYDROmorphone 1 MG/ML 1 ML SYRINGE IVP PRN ×2 (07:48→11:57)
[2022-01-24] MEDS ORDERED: KETOROLAC 15 MG/ML 1 ML VIAL IVP PRN (09:35)
[2022-01-24] MEDS ORDERED: FAMOTIDINE 20 MG/2 ML VIAL IV SCH (10:00)
[2022-01-24] MEDS ORDERED: DEXAMETHASONE SOD PHOSPHATE 10 MG/ML 1 ML VIAL IVP STA (10:24)
[2022-01-24] MEDS ORDERED: HYDROcodone/APAP 7.5-325MG 1 EACH TAB PO PRN (10:25)
[2022-01-24] MEDS: GABAPENTIN 300 MG CAP PO SCH ×2 (11:56→16:46)
[2022-01-24] MEDS ORDERED: HYDROmorphone 1 MG/ML 1 ML SYRINGE IVP PRN (12:23)
--- NOTE | 2022-01-24 12:48 | P.HPIM ---
History of Present Illness Patient is a 26-year-old male came in with complains of right arm pain patient had a recent injury to the right arm which led to a hematoma of the right arm. A since forearm is within normal limits has mild discoloration from the previous hematoma. Patient is comparing of severe pain in the right upper arm. Patient also says she has a lot of pressure in that area still has a lot of pain. Patient doesn't appear to have an abscess patient appears to have a hematoma with significant color change from oxidation of hemoglobin. Patient had a recent hospitalization for similar complaints at that time patient was extensively evaluated with MRI. REVIEW OF SYSTEMS: CONSTITUTIONAL: No fever, no malaise, no fatigue. HEENT: No recent visual problems or hearing problems. Denied any sore throat. CARDIOVASCULAR: No chest pain, orthopnea, PND, no palpitations, no syncope. PULMONARY: No shortness of breath, no cough, no hemoptysis. GASTROINTESTINAL: No diarrhea, no nausea, no vomiting, no abdominal pain. NEUROLOGICAL: No headaches, no weakness, no numbness. HEMATOLOGICAL: Denies any bleeding or petechiae. GENITOURINARY: Denies any burning micturition, frequency, or urgency. MUSCULOSKELETAL/RHEUMATOLOGICAL: As mentioned in HPI ENDOCRINE: Denies any polyuria or polydipsia. The rest of the 14-point review of systems is negative. PHYSICAL EXAMINATION: GENERAL: The patient is alert and oriented x3, not in any acute distress. Well developed, well nourished. HEENT: Pupils are round and equally reacting to light. EOMI. No scleral icterus. No conjunctival pallor. Normocephalic, atraumatic. No pharyngeal erythema. No thyromegaly. CARDIOVASCULAR: S1 and S2 present. No murmurs, rubs, or gallops. PULMONARY: Chest is clear to auscultation, no wheezing or crackles. ABDOMEN: Soft, nontender, nondistended, normoactive bowel sounds. No palpable organomegaly. MUSCULOSKELETAL: No joint swelling or deformity. EXTREMITIES: No cyanosis, clubbing, or pedal edema. Swelling of the right upper arm with a hematoma over the biceps NEUROLOGICAL: Gross neurological examination did not reveal any focal deficits. SKIN: Discoloration of the right upper arm as mentioned above Assessment and plan -Right approximately pain and swelling secondary to hematoma, his pain is expected to get better I do not recommend any more opiates for his pain, considering his age patient has highly addiction potential from opiates. And giving him prescription for nonsteroidal anti-inflammatories. His a hematoma is expected. In weeks to resolve same thing was expanding to the patient, awaiting evaluation by orthopedic surgery after which patient probably will be discharged -Ruled out DVT of the right upper arm with an ultrasound, ruled out fracture of the humerus of the right arm Patient will be discharged today after clearance by orthopedic surgery Past Medical History Past Medical History: No Reported History Additional Past Medical History / Comment(s): Crohns, IBS History of Any Multi-Drug Resistant Organisms: None Reported Past Surgical History: Orthopedic Surgery Additional Past Surgical History / Comment(s): rt hand Past Anesthesia/Blood Transfusion Reactions: No Reported Reaction Past Psychological History: Anxiety, Bipolar, Depression Smoking Status: Vaper Past Alcohol Use History: None Reported Past Drug Use History: Marijuana - Past Family History Father Family Medical History: Cancer Medications and Allergies Home Medications Medication Instructions Recorded Confirmed Type EPINEPHrine (Auto Inject) [Epipen] 0.3 mg IM ONCE PRN 01/14/22 01/24/22 History HYDROcodone/APAP 5-325MG [[place] 1 tab PO Q8HR PRN #24 tab 01/17/22 01/24/22 Rx 5-325] Famotidine [Pepcid] 20 mg PO BID #30 tablet 01/24/22 Rx Ibuprofen [Motrin] 600 mg PO Q6HR PRN #30 tab 01/24/22 Rx Allergies Allergy/AdvReac Type Severity Reaction Status Date / Time apricot Allergy Anaphylaxis Verified 01/24/22 11:35 bee venom protein (honey bee) Allergy Anaphylaxis Verified 01/24/22 11:35 diphenhydramine Allergy Anaphylaxis Verified 01/24/22 11:35 [From Benadryl] /Itching Iodinated Contrast Media Allergy Itching Verified 01/24/22 11:35 Physical Exam Vitals: Vital Signs Temp Pulse Pulse Resp BP BP Pulse Ox 01/24/22 07:00 97.7 F 61 12 113/65 97 01/24/22 02:00 68 18 01/24/22 01:30 97.7 F 68 18 131/80 95 01/24/22 01:17 78 19 116/76 98 01/23/22 21:02 98.4 F 82 18 133/96 97 Intake and Output 01/23/22 01/24/22 01/24/22 22:59 06:59 14:59 Other: Voiding Method Toilet # Voids 1 Weight 90.718 kg 90.718 kg Results CBC & Chem 7: 01/24/22 01:01 01/24/22 01:01 Thrombosis Risk Factor Assmnt - Choose All That Apply Any of the Below Risk Factors Present?: Yes Each Factor Represents 1 point: Obesity (BMI >25) Thrombosis Risk Factor Assessment Total Risk Factor Score: 1 Thrombosis Risk Factor Assessment Level: Low Risk
--- NOTE | 2022-01-24 12:49 | P.DS ---
Providers Date of admission: 01/24/22 00:31 Attending physician: Ama Raines Consults: 01/24/22 01:04 Consult Physician Routine Consulting Provider: Yousuf Hernandez Consult Reason/Comments: known Do you want consulting provider notified?: Yes Primary care physician: Stated None Hospital Course: Please refer to my HPI for further details Patient Condition at Discharge: Good Plan - Discharge Summary New Discharge Prescriptions: New Ibuprofen [Motrin] 600 mg PO Q6HR PRN #30 tab PRN Reason: Pain Famotidine [Pepcid] 20 mg PO BID #30 tablet No Action HYDROcodone/APAP 5-325MG [[place] 5-325] 1 tab PO Q8HR PRN #24 tab PRN Reason: Pain EPINEPHrine (Auto Inject) [Epipen] 0.3 mg IM ONCE PRN PRN Reason: Anaphylaxis Discharge Medication List EPINEPHrine (Auto Inject) [Epipen] 0.3 mg IM ONCE PRN 01/14/22 [History] HYDROcodone/APAP 5-325MG [[place] 5-325] 1 tab PO Q8HR PRN #24 tab 01/17/22 [Rx] Famotidine [Pepcid] 20 mg PO BID #30 tablet 01/24/22 [Rx] Ibuprofen [Motrin] 600 mg PO Q6HR PRN #30 tab 01/24/22 [Rx] Follow up Appointment(s)/Referral(s): Alexandra Herrmann MD [STAFF PHYSICIAN] - 1 Week
[2022-01-24 13:11] VITALS: BP 112/67; PULSE 70; RESP 14; TEMP 98
--- NOTE | 2022-01-24 13:20 | P.CNOR ---
History of Present Illness - [facility] Consult date: 01/24/22 Consult reason: other History of present illness: History of Presenting Illness Patient is a 26-year-old male presenting for evaluation of right upper extremity pain. 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 He states the volar mid/proximal forearm took the majority of the trauma. He states he's had continued pain in this arm since his discharge on 01/17/22 from the hospital. The pain began to be unbearable as of and he decided to come in last night 01/23/22. He has pain with most movements of the elbow/wrist. His right bicep does present with ecchymosis and muscle spasms during exam. Patient states he does not have sensation in the upper portion of his thumb and his fourth and fif th digit of the right hand. He does have a history of reconstructive surgery on the right middle finger in the past. Patient states he does have a follow-up appointment with Dr. Hernandez next week. Review of Systems Pertinent postivites and negatives as dicussed in [facility], a complete review of systems was performed and all other sysytems are negative. Assessment and Plan -Continue with ice and elevation -Take pain medication as prescribed -1 time dose of IV Decadron -Initiated gabapentin and Flexeril -Follow-up in office with Dr. Hernanedz next week. I reviewed and discussed this case with my attending Dr. Sandy, whom has reviewed this chart and films and is in agreement with assessment and plan of care as outlined above. I have personally seen and examined the patient, performed the documentation and the assessment and plan as written. Number of minutes spent on the visit: 20m. Past Medical History Past Medical History: No Reported History Additional Past Medical History / Comment(s): Crohns, IBS History of Any Multi-Drug Resistant Organisms: None Reported Past Surgical History: Orthopedic Surgery Additional Past Surgical History / Comment(s): rt hand Past Anesthesia/Blood Transfusion Reactions: No Reported Reaction Past Psychological History: Anxiety, Bipolar, Depression Smoking Status: Vaper Past Alcohol Use History: None Reported Past Drug Use History: Marijuana - Past Family History Father Family Medical History: Cancer Medications and Allergies Home Medications Medication Instructions Recorded Confirmed Type EPINEPHrine (Auto Inject) [Epipen] 0.3 mg IM ONCE PRN 01/14/22 01/24/22 History HYDROcodone/APAP 5-325MG [[place] 1 tab PO Q8HR PRN #24 tab 01/17/22 01/24/22 Rx 5-325] Famotidine [Pepcid] 20 mg PO BID #30 tablet 01/24/22 Rx Ibuprofen [Motrin] 600 mg PO Q6HR PRN #30 tab 01/24/22 Rx Allergies Allergy/AdvReac Type Severity Reaction Status Date / Time apricot Allergy Anaphylaxis Verified 01/24/22 11:35 bee venom protein (honey bee) Allergy Anaphylaxis Verified 01/24/22 11:35 diphenhydramine Allergy Anaphylaxis Verified 01/24/22 11:35 [From Benadryl] /Itching Iodinated Contrast Media Allergy Itching Verified 01/24/22 11:35 Physical Examination Physical Examination General: The patient is awake and alert, in no acute distress Skin: Skin is warm and dry with no obvious rashes or lesions. Ecchymosis present in the right bicep. Hairy patches absent, no dorsal skin dimples, no cafe au lait spots, and no surgical incisions. Eye: Pupils are equal, round and reactive to light, extra-ocular movements are intact; there is normal conjunctiva bilaterally. Neck: The neck is supple, there is no tenderness and ROM intact. Cardiovascular: There is a regular rate and rhythm. No murmur, rub or gallop is appreciated. Respiratory: Lungs are clear to auscultation, respirations are non-labored, breath sounds are equal. Gastrointestinal: Soft, non-distended, non-tender abdomen . Musculoskeletal: ROM limited secondary to pain and stiffness from right upper extremity injury: Shoulder abduction: right 4/5, left 5/5 elbow flexors: right 4/5, left 5/5 wrist dorsiflexors: right 4/5, left 5/5 finger abductor: right 3/5, left 5/5 psychology associate: right 2/5, left 5/5 Bilateral hip flexor 5/5 Bilateral knee flexor 5/5 Bilateral ankle dorsiflexor 5/5 Bilateral ankle plantarflexion 5/5 Bilateral extensor hallucis 5/5 Neurological: CN 2-12 intact. There are motor and sensory deficits to RUE. Movement and coordination limited to right hand. Sensory exam to light touch intact C5-T1 and intact from L2-S1. Reflexes 2/4 in bilateral upper and lower extremities. Negative Hoffmans, babinski, and clonus signs. Psychiatric: Cooperative, appropriate mood & affect, normal judgment. Results - Labs Labs: H & H 01/24/22 Range/Units 01:01 Hgb 15.7 (13.0-17.5) gm/dL Hct 46.3 (39.0-53.0) % Coagulation 01/24/22 Range/Units 03:35 INR 1.0 (<1.2) Result Diagrams: 01/24/22 01:01 01/24/22 01:01
[2022-01-24] MEDS ORDERED: CYCLOBENZAPRINE 5 MG TAB PO SCH (16:00)
== END 2022-01-24 21:10 | disposition home or self-care (01) ==
LOC: EC 19:09 → 6NMEDSUR 01-24 00:31
PROVIDERS: ADMIT Hospitalist; ATTEND Hospitalist
DX: S40.021D Contusion of right upper arm, subsequent encounter (principal); M62.838 Other muscle spasm; G81.91 Hemiplegia, unspecified affecting right dominant side; K58.9 Irritable bowel syndrome, unspecified; F31.9 Bipolar disorder, unspecified; F41.9 Anxiety disorder, unspecified; E66.9 Obesity, unspecified; Z68.32 Body mass index [BMI] 32.0-32.9, adult; Z87.828 Personal history of other (healed) physical injury and trauma; Z91.030 Bee allergy status; Z91.041 Radiographic dye allergy status; Z88.8 Allergy status to other drugs, medicaments and biological substances; Z91.018 Allergy to other foods; Z79.899 Other long term (current) drug therapy; Z80.9 Family history of malignant neoplasm, unspecified
CPT/HCPCS: 96376; 96361 ×2; 96375; 96374; 99285; 85379; 80053; 83735; 84100; 85025; 85610; 85730; 86140; 73060; 76882; G0378; J1100; J1170; J1885

== ENCOUNTER 2025-03-30 06:26 | Inpatient (IN) | payer BC, OTHER ==
[2025-03-30] MEDS: ONDANSETRON 4 MG/2 ML VIAL IVP STA (06:46)
[2025-03-30] MEDS: MORPHINE SULFATE 4 MG/ML SYRINGE IVP STA (06:47)
[2025-03-30] MEDS: SODIUM CHLORIDE 0.9% 1,000 ML IV ONE (06:51)
[2025-03-30] MEDS: ASPIRIN 81 MG PO STA (06:54)
--- NOTE | 2025-03-30 06:56 | ED ---
Chest Pain HPI - General Chief Complaint: Chest Pain Stated Complaint: Chest and stomach pain Time Seen by Provider: 03/30/25 06:32 Source: patient, family, RN notes reviewed Mode of arrival: ambulatory Limitations: no limitations - History of Present Illness Initial Comments: This is a 29-year-old male who presents to the emergency department for chest pain and abdominal pain. Family states that last night he was starting to complain of some discomfort in the chest and left shoulder area. Last night the pain started to get worse and states that he has been up all night and unable to sleep due to the discomfort. Describes the pain as being in the lower chest to epigastric region and radiating into the back. Pain is worse when he breathes however he denies any shortness of breath. Denies any personal or family history of cardiac problems. Denies any history of similar pain in the past. Reports mild nausea but no vomiting. Patient is currently hyperventilating and states that he feels very anxious and is unable to sit still. MD Complaint: chest pain - Related Data Home Medications Medication Instructions Recorded Confirmed Dextroamphetamine/Amphetamine 20 mg PO DAILY 03/30/25 03/30/25 [Adderall] Allergies Allergy/AdvReac Type Severity Reaction Status Date / Time apricot Allergy Anaphylaxis Verified 03/30/25 10:06 bee venom protein (honey bee) Allergy Anaphylaxis Verified 03/30/25 10:06 diphenhydramine Allergy Anaphylaxis Verified 03/30/25 10:06 [From Benadryl] /Itching Iodinated Contrast Media Allergy Itching Verified 03/30/25 10:06 Review of Systems ROS Statement: Those systems with pertinent positive or pertinent negative responses have been documented in the HPI. ROS Other: All systems not noted in ROS Statement are negative. Past Medical History Past Medical History: No Reported History Additional Past Medical History / Comment(s): Crohns, IBS History of Any Multi-Drug Resistant Organisms: None Reported Past Surgical History: Orthopedic Surgery Additional Past Surgical History / Comment(s): rt hand Past Anesthesia/Blood Transfusion Reactions: No Reported Reaction Past Psychological History: Anxiety, Bipolar, Depression Smoking Status: Vaper Past Alcohol Use History: None Reported Past Drug Use History: Marijuana - Past Family History Father Family Medical History: Cancer General Exam Limitations: no limitations General appearance: alert, anxious Head exam: Present: atraumatic, normocephalic, normal inspection Respiratory exam: Present: normal lung sounds bilaterally. Absent: respiratory distress, wheezes, rales, rhonchi, stridor Cardiovascular Exam: Present: normal rhythm, tachycardia GI/Abdominal exam: Present: soft, tenderness (Epigastric). Absent: distended Neurological exam: Present: alert, oriented X3, CN II-XII intact Psychiatric exam: Present: normal affect, normal mood Skin exam: Present: warm, dry, intact, normal color. Absent: rash Course Vital Signs 03/30/25 03/30/25 03/30/25 06:28 07:09 07:45 Temperature 98.3 F Pulse Rate 118 H 110 H 98 Respiratory 18 30 H 20 Rate Blood Pressure 154/66 141/121 116/62 O2 Sat by Pulse 91 L 95 95 Oximetry 03/30/25 08:29 Temperature Pulse Rate 91 Respiratory 22 Rate Blood Pressure 123/95 O2 Sat by Pulse 94 L Oximetry Chest Pain MDM - MDM This is a 29 year old male who presents to the emergency department for chest pain. Was pt. sent in by a medical professional or institution? @ -No Did you speak to anyone other than the patient for history? @ -Family provided information about him starting to complain of some discomfort last night. Did you review nursing and triage notes? @ -Yes, and I agree, it is accurate with regards to the patient's symptoms. Were old charts reviewed? @ -No Differential Diagnosis? @ -Differential Chest Pain: Stable Angina, Unstable Angina, STEMI, NSTEMI Aortic Dissection, Pneumothorax, Musculoskeletal, Esophageal Spasm GERD, Cholecystitis, Pancreatitis, Zoster, this is not meant to be an all-inclusive list. EKG interpreted by me (3pts min.)? @ -EKG interpreted by me demonstrating the following: Sinus tachycardia. Ventricular rate 102 bpm, IN interval 150 ms, QRS duration 100 ms, QTc 384 ms. X-rays interpreted by me (1pt min.)? @ -Chest x-ray obtained, my interpretation identifies pneumomediastinum. CT interpreted by me (1pt min.)? @ -CT scan of the neck and chest obtained. My interpretation identifies subcutaneous emphysema. U/S interpreted by me (1pt. min.)? @ -Gallbladder ultrasound obtained. My interpretation identifies no cholelithiasis. What testing was considered but not performed? (CT, X-rays, U/S, labs)? Why? @ -None What meds were considered but not given? Why? @ -None Did you discuss the management of the patient with other professionals? @ -Yes, Dr. Raines, who accepts the patient for admission. Did you reconcile home meds? @ -No Was smoking cessation discussed for >3mins.? @ -No Was critical care preformed (if so, how long)? @ -No Were there social determinants of health that impacted care today? How? (Homelessness, low income, unemployed, alcoholism, drug addiction, transportation, low edu. Level, literacy, decrease access to med. care, alf, rehab)? @ -No Was there de-escalation of care discussed even if they declined? (Discuss DNR or withdrawal of care, Hospice)? @ -No What co-morbidities impacted this encounter? (DM, HTN, Smoking, COPD, CAD, Cancer, CVA, Hep., AIDS, mental health diagnosis, sleep apnea, morbid obesity)? @ -None Was patient admitted / discharged? @ -Admitted. Lab work demonstrates leukocytosis with a white blood cell count of 18.09. Lab work otherwise unremarkable. D-dimer and troponin negative. Chest x-ray demonstrates concern for pneumomediastinum. Gallbladder ultrasound reveals no acute irregularities. test and turn up technician discussed the case with Dr. Taveras, radiology. He advised a CT of the neck and chest with oral contrast just before hand. CT scan of the neck and chest demonstrates extensive tracking subcutaneous edema up to the level of the nasopharyngeal/oropharyngeal junction. There is no oral contrast extravasation in the neck or chest. There is no discrete injury to the trachea or esophagus. The air tracking is more prominent in the neck and etiology at this point is not clear. He denies any specific injuries. States that yesterday he popped his shoulder in and out of place and he does do a lot of physical labor at work, however he has otherwise not experienced any trauma. This may be a spontaneous pneumomediastinum, in which case treatment is just supportive care. However, patient was given multiple IV pain medications without substantial relief and given his intractable pain he was admitted to medicine for further management. Consult placed for pulmonology. Case discussed with ED attending Dr. Harris. Undiagnosed new problem with uncertain prognosis? @ -None Drug Therapy requiring intensive monitoring for toxicity (Heparin, Nitro, Insulin, Cardizem)? @ -None Were any procedures done? @ -None Diagnosis/symptom? @ -Pneumomediastinum, intractable pain Acute, or Chronic, or Acute on Chronic? @ -Acute Uncomplicated (without systemic symptoms) or Complicated (systemic symptoms)? @ -Uncomplicated Side effects of treatment? @ -None Exacerbation, Progression, or Severe Exacerbation] @ -Not applicable Poses a threat to life or bodily function? @ -Yes, patient unable to function at this level of pain Disposition Clinical Impression: Pneumomediastinum, Intractable pain Disposition: ADMITTED IP TO THIS HOSP
[2025-03-30 07:09] LABS: Basophils # (A) 0.04 10*3/uL (0.00-0.10); Basophils % (A) 0.2 %; Eosinophils # (A) 0.00 10*3/uL (0.04-0.35); Eosinophils % (A) 0.0 %; HCT 46.2 % (39.6-50.0); HGB 16.8 g/dL (13.0-17.0); Lymphocytes # (A) 1.95 10*3/uL (0.90-5.00); Lymphocytes % (A) 10.8 %; MCH 31.3 pg (27.0-32.0); MCHC 36.4 g/dL (32.0-37.0); MCV 86.2 fL (80.0-97.0); Monocytes # (A) 1.20 10*3/uL (0.20-1.00); Monocytes % (A) 6.6 %; Neutrophils # (A) 14.81 10*3/uL (1.80-7.70); Neutrophils % (A) 81.9 %; Platelet Count 319 10*3/uL (140-440); RBC 5.36 10*6/uL (4.40-5.60); RDW 11.9 % (11.5-14.5); WBC 18.09 10*3/uL (4.50-10.00)
[2025-03-30] MEDS: NITROGLYCERIN SL TABS 0.4 MG TAB SUBLINGUAL STA (07:16)
[2025-03-30 07:23] LABS: ALT 35 U/L (4-49); AST 34 U/L (17-59); African American GFR (CKD) >90 (>60 ml/min/1.73 sqM); Albumin 5.2 g/dL (3.5-5.0); Alkaline Phosphatase 87 U/L (38-126); Anion Gap 14 mmol/L; Blood Urea Nitrogen 14 mg/dL (9-20); Calcium 9.5 mg/dL (8.4-10.2); Carbon Dioxide 21 mmol/L (22-30); Chloride 105 mmol/L (98-107); Glucose 118 mg/dL (74-99); Lipase 70 U/L (23-300); Magnesium 1.8 mg/dL (1.6-2.3); Non-African American GFR(CKD) >90 (>60 ml/min/1.73 sqM); Potassium 4.5 mmol/L (3.5-5.1); Sodium 140 mmol/L (137-145); Total Protein 8.7 g/dL (6.3-8.2)
[2025-03-30 07:24] LABS: INR 0.9 (<1.2); Partial Thromboplastin Time 25.0 sec (22.0-30.0); Prothrombin Time 10.4 sec (10.0-12.5)
[2025-03-30] MEDS: HYDROmorphone 1 MG/ML 1 ML SYRINGE IVP STA ×2 (07:31→08:30)
[2025-03-30] MEDS: PANTOPRAZOLE 40 MG/10 ML VIAL IVP STA (07:31)
--- NOTE | 2025-03-30 08:05 | XR ---
EXAMINATION TYPE: XR chest 2V DATE OF EXAM: 03/30/2025 7:48 AM COMPARISON: None CLINICAL INDICATION: Male, 29 years old with history of Chest pain for 24 hours TECHNIQUE: PA and lateral views FINDINGS: There is prominent subcutaneous emphysema at the base of the neck, right greater than left. Possible trace pneumomediastinum as well. Heart normal size. Aorta and pulmonary vasculature within normal tang its. No consolidation, pneumothorax, or pleural effusion is seen. IMPRESSION: 1. Prominent subcutaneous emphysema right greater than left base of the neck. Accompanying trace pneu momediastinum. Correlate to exclude any penetrating trauma. If no trauma, correlate for other potenti al causes of pneumomediastinum. 2. No pneumothorax or other acute cardiopulmonary process. [facility], , 03/30/2025 8:03 AM
--- NOTE | 2025-03-30 08:28 | US ---
EXAMINATION TYPE: US gallbladder DATE OF EXAM: 03/30/2025 COMPARISON: NONE CLINICAL INDICATION: Male, 29 years old with history of Epigastric pain; epigastric pain TECHNIQUE: Grayscale and color Doppler imaging of the right upper quadrant was performed. FINDINGS: EXAM MEASUREMENTS: Liver Length: 12.5 cm Gallbladder Wall: 0.22 cm CBD: 0.3 cm Right Kidney: 9.6 x 4.9 x 4.4 cm [employer] NOTES: Exam limited due to patient in extreme pain and moving around during exam. Pancreas: Obscured by bowel gas Liver: wnl Gallbladder: no obvious abnormality found. Slightly limited due to overlying bowel gas and extreme p ain Evidence for sonographic Mejia's sign: Pt in extreme pain before starting exam, unable to evaluat e CBD: wnl Right Kidney: Lower pole obscured by bowel gas shadowing. No hydronephrosis. IMPRESSION: No gallstones or biliary ductal dilatation. Assessment limited due to bowel gas and patient's conditi on (extreme pain) [facility], , 03/30/2025 8:25 AM
--- NOTE | 2025-03-30 09:19 | CT ---
EXAMINATION TYPE: CT neck chest without con DATE OF EXAM: 03/30/2025 9:06 AM COMPARISON: Radiograph same day. CLINICAL INDICATION: Male, 29 years old with history of Chest pain, pneumomediastinum;, Chest pain, p neumomediastinum TECHNIQUE: CT of the soft tissues of the neck and chest without IV contrast. Coronal and sagittal rec onstructions performed. Patient had a swallow of Redicat oral contrast prior to each scan. CT DLP: 889.6 mGycm, Automated exposure control for dose reduction was used. FINDINGS: Neck: The most extensive tracking subcutaneous emphysema is along the neck region and extends up to the lev el of the nasopharyngeal/oropharyngeal junction, right greater than left. Glottic and subglottic structures as well as the tracheal column appear clear. No discrete esophageal extravasation is seen into the soft tissues. Thyroid and left submandibular gland appears satisfactory. Right submandibular gland and bilateral pa rotid glands slightly atrophic. A few prominent submental space lymph nodes measuring up to 9 mm are noted. Otherwise, no obvious cer vical adenopathy is seen. No clear tracheal defect is identified. Bones: Reversal of the normal cervical lordosis. No acute fracture seen. Large dental caries involving the posterior maxillary teeth. CHEST: Heart normal size without pericardial effusion. Aorta normal caliber with a conventional arch vessel branching anatomy. No thoracic lymphadenopathy by CT size criteria. There is some oral contrast within the thoracic esophagus. No contrast extravasation is seen. There is pneumomediastinum present but the degree of emphysema is not as extensive as within the neck . Mild bronchial wall thickening could reflect bronchitis or asthma. Breathing motion in the mid and lo wer lungs. No consolidation, pneumothorax, or pleural effusion. Bones: Mild degenerative disc disease midthoracic spine. Step-off at the inferior sternum from breathing mot ion artifact. IMPRESSION Neck: 1. Extensive tracking subcutaneous emphysema up to the level of the nasopharyngeal/oropharyngeal junc tion, right greater than left. 2. No oral contrast extravasation is seen. No discrete tracheal injury is identified. 3. Prominent dental caries involving the posterior maxillary teeth. CHEST: 4. No oral contrast extravasation identified along the thoracic esophagus to clearly indicate esophag eal perforation. 5. Pneumomediastinum without etiology identified on this exam. The tracking air is noted to be more e xtensive within the neck. 6. Mild diffuse bronchial wall thickening could reflect bronchitis or asthma. [facility], , 03/30/2025 9:17 AM
[2025-03-30] MEDS ORDERED: ACETAMINOPHEN TAB 325 MG TAB PO PRN (09:39)
[2025-03-30] MEDS ORDERED: NALOXONE 0.4 MG/ML 1 ML VIAL IV PRN (09:39)
[2025-03-30] MEDS ORDERED: IBUPROFEN 400 MG TAB PO PRN (09:39)
[2025-03-30] MEDS: KETOROLAC 15 MG/ML 1 ML VIAL IVP PRN (10:17)
[2025-03-30] MEDS: HYDROmorphone 1 MG/ML 1 ML SYRINGE IVP PRN (12:00)
--- NOTE | 2025-03-30 13:25 | P.GSCN ---
History of Present Illness Consult date: 03/30/25 Reason for Consult: Pneumomediastinum Requesting physician: Sondra Joshi History of present illness: This is a 29-year-old gentleman who follows outpatient with Dr. Emily Goldberg for primary care. He has a previous medical history of ADHD, bipolar, current tobacco dependence in the form of vaping, and marijuana use. Apparently over the last week the patient reports pain that started in the center of his chest and radiated to his left shoulder. He states it has been constant, he has tried ibuprofen without relief. He did not seek medical attention. Last night the the pain became so significant that he was unable to get sleep so he reported to [facility] emergency room for evaluation. He does endorse upper chest swelling. He denies any trauma or recent illness. States he has never had pain like this before. Chest x-ray was completed demonstrating prominent subcutaneous emphysema, right greater than left at the base of the neck, trace pneumomediastinum, no other acute cardiopulmonary process. Neck/chest CT confirmed extensive tracking subcutaneous emphysema up to the level of the nasopharyngeal/oropharyngeal junction, right greater than left, no extravasation of oral contrast likely indicating no tracheal injury, no clear esophageal perforation, pneumomediastinum present without clear etiology. Lab work revealed WBC 18, creatinine 0.66, negative troponin. The patient was given IV pain medication and antianxiety medication, admitted for observation with consultation placed to pulmonology and subsequent consultation to cardiothoracic surgery for treatment recommendations. Review of Systems Review of systems was completed and was negative except as noted - Cardiovascular Reports chest pain, Reports edema, Reports shortness of breath Past Medical History Additional Past Medical History / Comment(s): Crohns, IBS History of Any Multi-Drug Resistant Organisms: None Reported Past Surgical History: Orthopedic Surgery Additional Past Surgical History / Comment(s): rt hand Past Anesthesia/Blood Transfusion Reactions: No Reported Reaction Past Psychological History: ADD/ADHD, Anxiety, Bipolar, Depression Smoking Status: Vaper Past Alcohol Use History: None Reported Past Drug Use History: Marijuana - Past Family History Father Family Medical History: Cancer Additional Family Medical History / Comment(s): Father from stage IV lung cancer Mother Additional Family Medical History / Comment(s): Mother is still alive but patient has not had contact with her in many many years Medications and Allergies Home Medications Medication Instructions Recorded Confirmed Type Dextroamphetamine/Amphetamine 20 mg PO DAILY 03/30/25 03/30/25 History [Adderall] Allergies Allergy/AdvReac Type Severity Reaction Status Date / Time apricot Allergy Anaphylaxis Verified 03/30/25 10:06 bee venom protein (honey bee) Allergy Anaphylaxis Verified 03/30/25 10:06 diphenhydramine Allergy Anaphylaxis Verified 03/30/25 10:06 [From Benadryl] /Itching Iodinated Contrast Media Allergy Itching Verified 03/30/25 10:06 Surgical - Exam Vital Signs Temp Pulse Resp BP Pulse Ox 98.3 F 118 H 18 154/66 91 L 03/30/25 06:28 03/30/25 06:28 03/30/25 06:28 03/30/25 06:28 03/30/25 06:28 CONSTITUTIONAL: Awake and alert, cooperative, well-developed, well-nourished EYES: Pupils equal, round, reactive to light, normal ocular movement ENT: Moist mucous membranes without oral lesions present NECK: No masses, no bruits, trachea midline RESPIRATORY: Lungs sounds diminished in the bases with faint wheeze on the right. Respirations tachypneic. Currently on room air with oxygen saturation 96%. Strong cough. Subcutaneous air present to upper chest CARDIOVASCULAR: S1, S2 present. Regular rate and rhythm, sinus rhythm on telemetry. Palpable peripheral pulses bilaterally. No edema present GASTROINTESTINAL: Abdomen soft, nontender, nondistended without masses or organomegaly noted. There is no rebound or guarding present. Active bowel sounds present 4 quadrants. GENITOURINARY: Deferred INTEGUMENTARY: Skin is warm and dry NEUROLOGIC: Cranial nerves II through XII intact, normal coordination, no obvious motor or sensory deficits, speech is normal MUSKULOSKELETAL: Able to move all extremities, strength equal bilaterally, normal posture PSYCHIATRIC: Alert and oriented to person place and time, appropriate affect, intact judgment and insight Results - Labs 03/30/25 06:40 03/30/25 06:40 Abnormal Lab Results - Last 24 Hours (Table) 03/30/25 03/30/25 Range/Units 06:40 06:40 WBC 18.09 H (4.50-10.00) 10*3/uL MPV 9.4 L (9.5-12.2) fL Immature Gran # 0.09 H (0.00-0.04) 10*3/uL Neutrophils # 14.81 H (1.80-7.70) 10*3/uL Monocytes # 1.20 H (0.20-1.00) 10*3/uL Eosinophils # 0.00 L (0.04-0.35) 10*3/uL Carbon Dioxide 21 L (22-30) mmol/L Glucose 118 H (74-99) mg/dL Total Protein 8.7 H (6.3-8.2) g/dL Albumin 5.2 H (3.5-5.0) g/dL Diabetes panel 03/30/25 Range/Units 06:40 Sodium 140 (137-145) mmol/L Potassium 4.5 (3.5-5.1) mmol/L Chloride 105 (98-107) mmol/L Carbon Dioxide 21 L (22-30) mmol/L BUN 14 (9-20) mg/dL Creatinine 0.66 (0.66-1.25) mg/dL Glucose 118 H (74-99) mg/dL Calcium 9.5 (8.4-10.2) mg/dL AST 34 (17-59) U/L ALT 35 (4-49) U/L Alkaline Phosphatase 87 (38-126) U/L Total Protein 8.7 H (6.3-8.2) g/dL Albumin 5.2 H (3.5-5.0) g/dL Calcium panel 03/30/25 Range/Units 06:40 Calcium 9.5 (8.4-10.2) mg/dL Albumin 5.2 H (3.5-5.0) g/dL Pituitary panel 03/30/25 Range/Units 06:40 Sodium 140 (137-145) mmol/L Potassium 4.5 (3.5-5.1) mmol/L Chloride 105 (98-107) mmol/L Carbon Dioxide 21 L (22-30) mmol/L BUN 14 (9-20) mg/dL Creatinine 0.66 (0.66-1.25) mg/dL Glucose 118 H (74-99) mg/dL Calcium 9.5 (8.4-10.2) mg/dL Adrenal panel 03/30/25 Range/Units 06:40 Sodium 140 (137-145) mmol/L Potassium 4.5 (3.5-5.1) mmol/L Chloride 105 (98-107) mmol/L Carbon Dioxide 21 L (22-30) mmol/L BUN 14 (9-20) mg/dL Creatinine 0.66 (0.66-1.25) mg/dL Glucose 118 H (74-99) mg/dL Calcium 9.5 (8.4-10.2) mg/dL Total Bilirubin 0.7 (0.2-1.3) mg/dL AST 34 (17-59) U/L ALT 35 (4-49) U/L Alkaline Phosphatase 87 (38-126) U/L Total Protein 8.7 H (6.3-8.2) g/dL Albumin 5.2 H (3.5-5.0) g/dL - Imaging Chest x-ray: report reviewed, image reviewed CT scan - chest: report reviewed, image reviewed Assessment and Plan Assessment: Pneumomediastinum Chest pain, shortness of breath secondary to above History of ADHD Bipolar Current tobacco dependence in the form of vaping Marijuana use Plan: The patient was seen and examined laying on a cart in the emergency room, initially was sound asleep but was woken up. Chart/diagnostics were reviewed. The case was discussed with Dr. Villalobos who will review the patient's films. Will make n.p.o. for now. Patient did appear tachypneic even when sleeping. Pa in seems to be better controlled than what he describes from admission. Incentive spirometry ordered and should be encouraged. Smoking/vaping cessation encouraged. Pain control. Medical management of other comorbidities per internal medicine, pulmonology. More recommendations to follow once Dr. Morton has had a chance to review the patient's films. Thank you Dr. Joshi for this consult, we will continue to follow along and make further recommendations as appropriate. I have personally seen and examined the patient, performed the documentation and the assessment and plan as written. Number of minutes spent on the visit: 30. MARIA ELENA Olson Attending Addendum: discussed with Zoie ARREDONDO who saw patient and reported chest pain has been going on 1 week but has been eating in the meantime without pain related to swallowing. Without vomiting, its unclear what cause the pneumomediastinum. Air distribution looks like a higher perforation in neck or throat if that was the case. In any case, he had an acceptable CT scan with PO contrast and i agree with radiology, no drainable collections in the mediastinum, pleural spaces or near esophagus. Would start with clears and ADAT. His wbc is elevated so it would be nice to see that go down if drawn in the AM. Picture not clear, but from a thoracic esophagus standpoint it seems ok.
--- NOTE | 2025-03-30 13:29 | P.CNPUL ---
History of Present Illness Consult date: 03/30/25 Requesting physician: Kristie Duran Reason for consult: abnormal CXR/CT Chief complaint: Chest pain, shortness of breath History of present illness: This is a very pleasant 29-year-old male patient with a known history of ADHD maintained on Adderall in the outpatient setting. 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 He presented here to the emergency room early this morning with complaints of chest pain and left shoulder pain with some shortness of breath. He was also having some discomfort in his neck. The pain was radiating to the epigastric rating and to his back. No nausea or vomiting. He was quite anxious on arrival. Chest x-ray revealed prominent subcutaneous emphysema right greater than left base of the neck. Accompanying trace pneumomediastinum. Could not exclude any penetrating trauma. No pneumothorax or other acute pulmonary process. Ultrasound of the gallbladder revealed no gallstones or biliary ductal dilatation. CT scan of the neck and chest revealed extensive tracking subcutaneous emphysema up to the level of the nasopharyngeal/oropharyngeal junction, right greater than left. No oral contrast excavation was seen. No direct injury noted. Pneumomediastinum without etiology identified. The tracking ear is noted to be more extensive within the neck. EKG revealed no acute ST or T wave abnormalities. White count 18.0. Hemoglobin 16.8. Platelets 319. Sodium 140. Potassium 4.5. Bicarb 21. BUN 14. Creatinine 0.66. Glucose 118. Troponin negative x 1. D-dimer 0.45. He is seen today in consultation in the emergency department. He is currently resting on a stretcher. His pain medications have been helping somewhat. Upon sitting up he is in quite a significant amount of pain. Mostly in his anterior chest and neck region. He is maintaining good O2 saturations in the 90s on room air oxygen. He is afebrile. Hemodynamically stable. Review of Systems REVIEW OF SYSTEMS: CONSTITUTIONAL: Denies any recent significant weight loss or weight gain. EYES: Denies change in vision. EARS, NOSE, MOUTH, THROAT: Denies headaches, denies sore throat. CARDIOVASCULAR: Positive for chest pain radiating to the back, no palpitations or syncopal episodes. RESPIRATORY: Positive for pain causing shortness of breath, no cough, congestion or hemoptysis. GASTROINTESTINAL: Denies change in appetite, denies abdominal pain GENITOURINARY: Denies hematuria, denies infections. MUSKULOSKELETAL: Denies pain, denies swelling. INTEGUMENTARY: Denies rash, denies eczema. NEUROLOGICAL: Denies recent memory loss, no recent seizure activity. PSYCHIATRIC: Positive for anxiety, denies depression. HEMATOLOGIC/LYMPHATIC: Denies anemia, denies enlarged lymph nodes. Past Medical History Past Medical History: No Reported History Additional Past Medical History / Comment(s): Crohns, IBS History of Any Multi-Drug Resistant Organisms: None Reported Past Surgical History: Orthopedic Surgery Additional Past Surgical History / Comment(s): rt hand Past Anesthesia/Blood Transfusion Reactions: No Reported Reaction Past Psychological History: Anxiety, Bipolar, Depression Smoking Status: Vaper Past Alcohol Use History: None Reported Past Drug Use History: Marijuana - Past Family History Father Family Medical History: Cancer Medications and Allergies Home Medications Medication Instructions Recorded Confirmed Type Dextroamphetamine/Amphetamine 20 mg PO DAILY 03/30/25 03/30/25 History [Adderall] Allergies Allergy/AdvReac Type Severity Reaction Status Date / Time apricot Allergy Anaphylaxis Verified 03/30/25 10:06 bee venom protein (honey bee) Allergy Anaphylaxis Verified 03/30/25 10:06 diphenhydramine Allergy Anaphylaxis Verified 03/30/25 10:06 [From Benadryl] /Itching Iodinated Contrast Media Allergy Itching Verified 03/30/25 10:06 Physical Exam Vitals: Vital Signs Temp Pulse Resp BP Pulse Ox 03/30/25 08:29 91 22 123/95 94 L 03/30/25 07:45 98 20 116/62 95 03/30/25 07:09 110 H 30 H 141/121 95 03/30/25 06:28 98.3 F 118 H 18 154/66 91 L Intake and Output 03/29/25 03/30/25 03/30/25 22:59 06:59 14:59 Other: Weight 90.718 kg GENERAL EXAM: Alert, anxious 29-year-old male, on room air oxygen, fairly comfortable in no apparent distress. HEAD: Normocephalic. EYES: Normal reaction of pupils, equal size. NOSE: Clear with pink turbinates. THROAT: No erythema or exudates. NECK: No masses, no JVD. Positive crepitation right greater than left CHEST: Extensive subcutaneous emphysema. LUNGS: Equal air entry with no crackles, wheeze, rhonchi or dullness. CVS: S1 and S2 normal with no audible murmur, regular rhythm. ABDOMEN: No hepatosplenomegaly, normal bowel sounds, no guarding or rigidity. SPINE: No scoliosis or deformity SKIN: No rashes CENTRAL NERVOUS SYSTEM: No focal deficits, tone is normal in all 4 extremities. EXTREMITIES: There is no peripheral edema. No clubbing, no cyanosis. Peripheral pulses are intact. Results - Laboratory Findings CBC and BMP: 03/30/25 06:40 03/30/25 06:40 PT/INR, D-dimer PT 10.4 sec (10.0-12.5) 03/30/25 06:40 INR 0.9 (<1.2) 03/30/25 06:40 D-Dimer 0.45 mg/L FEU (<0.60) 03/30/25 06:40 Abnormal lab findings: Abnormal Labs 03/30/25 03/30/25 06:40 06:40 WBC 18.09 H MPV 9.4 L Immature Gran # 0.09 H Neutrophils # 14.81 H Monocytes # 1.20 H Eosinophils # 0.00 L Carbon Dioxide 21 L Glucose 118 H Total Protein 8.7 H Albumin 5.2 H - Diagnostic Findings Chest x-ray: image reviewed CT scan - chest: image reviewed Assessment and Plan Assessment: Acute chest pain radiating to the back and neck secondary to a pneumomediastinum. 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 We will continue to follow and make further recommendations based on his clinical status I have personally seen and examined the patient, performed the documentation and the assessment and plan as written. Number of minutes spent on the visit: 20 Dictation was produced using BlueSpaceation software. Please excuse any grammatical, word or spelling errors. Time with Patient: Greater than 30
[2025-03-30] MEDS: PANTOPRAZOLE 40 MG/10 ML VIAL IVP SCH (13:58)
[2025-03-30] MEDS: PIPERACILLIN-TAZOBACTAM 3.375 GM in SODIUM CHLORIDE 0.9% 100 ML IVPB SCH (14:17)
[2025-03-30] MEDS: LORazepam 0.5 MG TAB PO PRN (16:26)
[2025-03-30] MEDS: HYDROcodone/APAP 5-325MG 1 EACH TAB PO PRN (20:23)
--- NOTE | 2025-03-30 21:12 | CA ---
Transthoracic Echo Report Name: Ra Roberson Age: 29 Gender: M : 1995 Exam Date: 03/30/2025 15:33 Exam Location: [place] [facility] Ht (in): 67 Wt (lb): 200 Ordering Physician: Deysi West Attending/Referring Phys: Special Needs Nanny Tyshawn Grimes RDCS Procedure CPT: Indications: Pneumomediastinum Cardiac Hx: Technical Quality: Good Contrast 1: Total Dose (mL): Contrast 2: Total Dose (mL): MEASUREMENTS (Male / Female) Normal Values 2D ECHO LV Diastolic Diameter PLAX 5.3 cm 4.2 - 5.9 / 3.9 - 5.3 cm LV Systolic Diameter PLAX 3.5 cm IVS Diastolic Thickness 1.0 cm 0.6 - 1.0 / 0.6 - 0.9 cm LVPW Diastolic Thickness 1.1 cm 0.6 - 1.0 / 0.6 - 0.9 cm LV Relative Wall Thickness 0.4 RV Internal Dim ED PLAX 2.8 cm LVOT Diameter 2.1 cm LA Systolic Diameter LX 3.4 cm 3.0 - 4.0 / 2.7 - 3.8 cm LV Diastolic Volume MOD BP 128.5 cm??? 67 - 155 / 56 - 104 cm??? LV Systolic Volume MOD BP 47.5 cm??? - / 19 - 49 cm??? LV Ejection Fraction MOD BP 63.0 % >= 55 % LV Cardiac Index MOD BP 2853.7 cm???/min???m??? LV Diastolic Volume MOD 4C 116.1 cm??? LV Systolic Volume MOD 4C 47.6 cm??? LV Ejection Fraction MOD 4C 59.0 % LV Cardiac Index MOD 4C 2415.3 cm???/min???m??? LV Diastolic Length 4C 9.2 cm LV Systolic Length 4C 7.4 cm LV Diastolic Volume MOD 2C 137.3 cm??? LV Systolic Volume MOD 2C 46.5 cm??? LV Ejection Fraction MOD 2C 66.2 % LV Cardiac Index MOD 2C 3201.7 cm???/min???m??? LV Diastolic Length 2C 8.8 cm LV Systolic Length 2C 7.2 cm LA Volume 39.5 cm??? - 58 / 22 - 52 cm??? LA Volume Index 18.8 cm???/m??? 16 - 28 cm???/m??? M-MODE Aortic Root Diameter MM 3.1 cm LA Systolic Diameter MM 3.3 cm LA Ao Ratio MM 1.1 AV Cusp Separation MM 2.0 cm DOPPLER AV Peak Velocity 137.7 cm/s AV Peak Gradient 7.6 mmHg AV Mean Velocity 94.7 cm/s AV Mean Gradient 4.1 mmHg AV Velocity Time Integral 22.3 cm LVOT Peak Velocity 107.7 cm/s LVOT Peak Gradient 4.6 mmHg LVOT Velocity Time Integral 15.7 cm LVOT Stroke Volume 51.9 cm??? LVOT Stroke Volume Index 25.7 ml/m??? LVOT Cardiac Index 1830.0 cm???/min???m??? AV Area Cont Eq vti 2.3 cm??? AV Area Cont Eq pk 2.6 cm??? MV Peak Velocity 94.8 cm/s MV Peak Gradient 3.6 mmHg MV Mean Velocity 55.9 cm/s MV Mean Gradient 1.4 mmHg MV Velocity Time Integral 21.9 cm MV Area PHT 4.5 cm??? Mitral E Point Velocity 81.1 cm/s Mitral A Point Velocity 69.9 cm/s Mitral E to A Ratio 1.2 MV Deceleration Time 168.6 ms TR Peak Velocity 238.9 cm/s TR Peak Gradient 22.8 mmHg FINDINGS Left Ventricle Left ventricular ejection fraction is estimated at 60-65 %. Normal left ventricular systolic function.no obvious regional wall motion abnormalities. Normal left ventricular wall motion. Right Ventricle Normal right ventricular size and function. Right Atrium Normal right atrial size. No right atrial thrombus or mass seen. Left Atrium Normal left atrial size. No left atrial thrombus or mass present. Mitral Valve No mitral stenosis. Trace mitral regurgitation. Aortic Valve Trileaflet aortic valve. No aortic valve stenosis or regurgitation. Tricuspid Valve No tricuspid stenosis. Trace tricuspid regurgitation. Pulmonic Valve Pulmonic valve not well visualized. Pericardium Normal pericardium. No pericardial or pleural effusion. Aorta Normal size aortic root and proximal ascending aorta. CONCLUSIONS Left ventricular ejection fraction is estimated at 60-65 %. No obvious regional wall motion abnormalities. Normal right ventricular size and function. No major valvular dysfunction Previewed by: Dr Arsh Velazquez (Electronically Signed) Final Date: 30 March 2025 21:11
--- NOTE | 2025-03-31 00:01 | HP ---
HISTORY AND PHYSICAL CHIEF COMPLAINT: Shoulder pain and assess pneumomediastinum as well as acute dense emphysema. HISTORY OF PRESENT ILLNESS: This is a 29-year-old gentleman with a past medical history of Crohn's disease and irritable bowel syndrome, who was working in construction. The patient was apparently lifting up and throwing heavy blocks up to 45 pounds in weight. About a week ago the patient felt a sudden popping and left shoulder pain, which was radiating to the chest and subsequently pain persisted. Last night, the pain was increasing and the patient has some shortness of breath, and the patient was unable to sleep and the patient has some grunting. The patient came to [facility] and was evaluated. White count is elevated and the patient had a chest x-ray, and subsequently neck and chest CT showed extensive tracking subcutaneous emphysema to level of nasopharyngeal and oropharyngeal junction and also has pneumomediastinum without etiology identified. The patient is being admitted for evaluation and treatment. There is no difficulty with swallowing or eating reported at this time. There is no history of fever, rigors, chills. PAST MEDICAL HISTORY: Crohn disease, IBS. HOME MEDICATIONS: Reviewed, include Tylenol. Rest of the medications reviewed. ALLERGIES: Apricot. FAMILY HISTORY: History of cancer. SOCIAL HISTORY: History of vaping, THC. REVIEW OF SYSTEMS: Fourteen-point Review of Systems negative except as mentioned earlier. PHYSICAL EXAMINATION: VITAL SIGNS: Pulse is 91, blood pressure 123/95, respirations 20. HEENT: Conjunctivae normal. NECK: No JVD. CARDIOVASCULAR: S1, S2 noted. RESPIRATION: Diminished at the bases. Few scattered rhonchi. No crackles. Not much crepitus felt. ABDOMEN: Soft, nontender. No mass palpable. LEGS: No edema. NERVOUS SYSTEM: Nonfocal. LABORATORY DATA: Reviewed. ASSESSMENT: 1. Acute sudden onset of pneumomediastinum and subcutaneous emphysema of undetermined etiology. 2. Elevated WBC, rule out sepsis. 3. History of Crohn's disease and history of irritable bowel syndrome. 4. History of anxiety, bipolar, depression. 5. History of vaping. RECOMMENDATIONS: This 29-year-old gentleman presented with multiple complex medical issues. I recommend to continue current management and continue symptomatic treatment. There is no obvious injury revealed in any of the testing or from the history. I would recommend evaluation from Pulmonary and Cardiothoracic Surgery. I would also recommend infectious disease evaluation, obtain cultures, and initiate broad-spectrum IV antibiotics also because symptoms have been persistent for the last 1 week. Viral titers also will be ordered. Overall, prognosis remains extremely guarded. Pain management. Further recommendations to follow. MMODL / IJN: [id number] /
[2025-03-31 07:09] LABS: Basophils # (A) 0.02 10*3/uL (0.00-0.10); Basophils % (A) 0.2 %; Eosinophils # (A) 0.00 10*3/uL (0.04-0.35); Eosinophils % (A) 0.0 %; HCT 41.2 % (39.6-50.0); HGB 14.3 g/dL (13.0-17.0); Lymphocytes # (A) 2.74 10*3/uL (0.90-5.00); Lymphocytes % (A) 26.7 %; MCH 30.4 pg (27.0-32.0); MCHC 34.7 g/dL (32.0-37.0); MCV 87.7 fL (80.0-97.0); Monocytes # (A) 0.87 10*3/uL (0.20-1.00); Monocytes % (A) 8.5 %; Neutrophils # (A) 6.62 10*3/uL (1.80-7.70); Neutrophils % (A) 64.5 %; Platelet Count 276 10*3/uL (140-440); RBC 4.70 10*6/uL (4.40-5.60); RDW 12.3 % (11.5-14.5); WBC 10.26 10*3/uL (4.50-10.00)
[2025-03-31 07:20] LABS: ALT 26 U/L (4-49); AST 26 U/L (17-59); African American GFR (CKD) >90 (>60 ml/min/1.73 sqM); Albumin 3.9 g/dL (3.5-5.0); Alkaline Phosphatase 67 U/L (38-126); Anion Gap 9 mmol/L; Blood Urea Nitrogen 15 mg/dL (9-20); Calcium 8.8 mg/dL (8.4-10.2); Carbon Dioxide 26 mmol/L (22-30); Chloride 102 mmol/L (98-107); Glucose 93 mg/dL (74-99); Non-African American GFR(CKD) >90 (>60 ml/min/1.73 sqM); Potassium 4.0 mmol/L (3.5-5.1); Sodium 137 mmol/L (137-145); Total Protein 6.7 g/dL (6.3-8.2)
--- NOTE | 2025-03-31 07:55 | XR ---
EXAMINATION TYPE: XR chest 1V portable DATE OF EXAM: 03/31/2025 5:57 AM COMPARISON: 03/30/2025 CLINICAL INDICATION: Male, 29 years old with history of pneumomediastinum, Chest pain TECHNIQUE: Single frontal view of the chest is obtained. FINDINGS: There is no focal air space opacity, pleural effusion, or pneumothorax seen. Pneumomediastinum persi sts although is less conspicuous than on prior study. In addition air tracking within the neck is als o persistent but improved. The cardiac silhouette size is within normal limits. The osseous structures are intact. IMPRESSION: 1. Pneumomediastinum persists although is less conspicuous than on prior study. In addition air trac jeaneth within the neck is also persistent but improved. [facility], , 03/31/2025 7:52 AM
--- NOTE | 2025-03-31 08:47 | P.PN ---
Subjective Progress Note Date: 03/31/25 Principal diagnosis: Pneumomediastinum. History of ADHD, bipolar, current vaper, marijuana use The patient was seen and examined this morning sitting up in bed on the cardiac stepdown unit in no acute distress. He does appear more comfortable with his breathing than he did yesterday, does state he got a small amount of sleep last night. States pain is not really improved, has been taking combination of IV Dilaudid, IV Toradol, IV Ativan, oral [place]. States the only comfortable position for him to be in is sitting straight up. Chest x-ray reviewed this morning. WBC down to 10 from 18 yesterday, patient was started on IV Zosyn yesterday by infectious disease, receiving workup for sepsis per internal medicine and ID. Reviewed with patient that pneumomediastinum/subcutaneous emphysema expected to improve on its own without surgical intervention. No other new concerns. Objective - Vital Signs Vital signs: Vital Signs Temp 98.0 F 03/30/25 23:42 Pulse 57 L 03/31/25 04:00 Resp 18 03/31/25 04:00 BP 127/65 03/31/25 04:00 Pulse Ox 94 L 03/31/25 04:00 FiO2 Intake & Output 03/30/25 03/31/25 03/31/25 18:59 06:59 18:59 Intake Total 550 Balance 550 Weight 91.9 kg Intake: Oral 550 Other: Voiding Method Toilet # Voids 1 - Exam CONSTITUTIONAL: Appears somewhat comfortable sitting straight up, cooperative, no acute distress RESPIRATORY: Lungs sounds diminished bilaterally. Respirations even, less labored. Currently on room air with oxygen saturation 94%. Able to achieve 1250 mL on incentive spirometry. Strong cough. CARDIOVASCULAR: S1, S2 present. Regular rate and rhythm, sinus rhythm on telemetry. Palpable peripheral pulses bilaterally. No edema present GASTROINTESTINAL: Abdomen soft, nontender, nondistended. Active bowel sounds present 4 quadrants. Tolerating clear liquid diet GENITOURINARY: Continues to void INTEGUMENTARY: Skin is warm and dry NEUROLOGIC: Cranial nerves II through XII intact MUSKULOSKELETAL: Able to move all extremities, strength equal bilaterally, gait normal PSYCHIATRIC: Alert and oriented to person place and time - Allied health notes Allied health notes reviewed: nursing - Labs CBC & Chem 7: 03/31/25 06:05 03/31/25 06:05 Labs: Abnormal Lab Results - Last 24 Hours (Table) 03/30/25 03/30/25 03/31/25 Range/Units 06:40 06:40 06:05 WBC 10.26 H (4.50-10.00) 10*3/uL MPV 9.4 L (9.5-12.2) fL Eosinophils # 0.00 L (0.04-0.35) 10*3/uL ESR 34 H (0-15) mm/Hr C-Reactive Protein 2.2 H (<1.0) mg/dL - Imaging and Cardiology Chest x-ray: report reviewed, image reviewed Assessment and Plan Assessment: Pneumomediastinum, subcutaneous emphysema Chest pain, shortness of breath secondary to above History of ADHD, maintained on Adderall outpatient Bipolar Current tobacco dependence in the form of vaping Marijuana use Plan: No surgical intervention warranted Encourage incentive spirometry use Increase activity as tolerated Pain control per internal medicine Will advance diet to regular Smoking/vaping cessation again encouraged Medical management of other comorbidities per internal medicine, pulmonology Will continue to see again on an as needed basis, please call us with any further questions
[2025-03-31] MEDS ORDERED: PANTOPRAZOLE 40 MG/10 ML VIAL IV SCH (09:00)
--- NOTE | 2025-03-31 10:47 | P.CONS ---
History of Present Illness - Reason for Consult Consult date: 03/30/25 Sepsis Requesting physician: Ama Raines - Chief Complaint Chest and neck pain x few days - History of Present Illness Patient is a 29-year-old male with a past medical history significant for Crohn's IBS ADHD anxiety bipolar depression and marijuana use presenting to the hospital for evaluation of chest pain and abdominal pain patient complaining of pain to the left side of the chest and the shoulder area that has significantly get worse describing it to be sharp moderate to severe intensity some shortness of breath patient also complaining of cough and is bringing up some sputum for the last few days denies high-grade fever on presentation to the hospital the patient was afebrile no fever have been recorded subsequently patient was nontachycardic hypotensive or hypoxic did have elevated white count of 18.09 with a left shift creatinine 0.66 electrolytes are normal liver enzymes are normal CRP is elevated 2.2 patient did have a neck and chest CT we did shows extensive tracking subcutaneous emphysema up to the level of the nasopharyngeal oropharyngeal junction right greater than the left no oral contrast extravasation seen no discrete tracheal injury prominent dental caries involving the posterior maxillary teeth there was no evidence of any thoracic esophagus contrast leak to indicate esophageal perforation there was evidence of pneumomediastinum and mild diffuse bronchial wall thickening could reflect bronchitis or asthma patient was empirically started on Zosyn admitted to the hospital infectious disease was consulted for further management of antibiotic therapy Review of Systems Positive point and negatives has been mentioned in the HPI, complete review of systems was performed and all other systems are negative Past Medical History Past Medical History: No Reported History Additional Past Medical History / Comment(s): Crohns, IBS History of Any Multi-Drug Resistant Organisms: None Reported Past Surgical History: Orthopedic Surgery Additional Past Surgical History / Comment(s): rt hand Past Anesthesia/Blood Transfusion Reactions: No Reported Reaction Past Psychological History: ADD/ADHD, Anxiety, Bipolar, Depression Smoking Status: Vaper Past Alcohol Use History: None Reported Past Drug Use History: Marijuana - Past Family History Father Family Medical History: Cancer Additional Family Medical History / Comment(s): Father from stage IV lung cancer Mother Additional Family Medical History / Comment(s): Mother is still alive but patient has not had contact with her in many many years Medications and Allergies Home Medications Medication Instructions Recorded Confirmed Type Dextroamphetamine/Amphetamine 20 mg PO DAILY 03/30/25 03/30/25 History [Adderall] Allergies Allergy/AdvReac Type Severity Reaction Status Date / Time apricot Allergy Anaphylaxis Verified 03/30/25 10:06 bee venom protein (honey bee) Allergy Anaphylaxis Verified 03/30/25 10:06 diphenhydramine Allergy Anaphylaxis Verified 03/30/25 10:06 [From Benadryl] /Itching Iodinated Contrast Media Allergy Itching Verified 03/30/25 10:06 Physical Exam Vitals: Vital Signs Temp Pulse Resp BP Pulse Ox 03/30/25 08:29 91 22 123/95 94 L 03/30/25 07:45 98 20 116/62 95 03/30/25 07:09 110 H 30 H 141/121 95 03/30/25 06:28 98.3 F 118 H 18 154/66 91 L Intake and Output 03/29/25 03/30/25 03/30/25 22:59 06:59 14:59 Other: Weight 90.718 kg GENERAL DESCRIPTION: ER male lying in bed, no distress. No tachypnea or acc essory muscle of respiration use. HEENT: Shows Pallor , no scleral icterus. Oral mucous membrane is dry. NECK: Trachea central, no thyromegaly. LUNGS: Unlabored breathing. Clear to auscultation anteriorly. No wheeze or crackle. HEART: S1, S2, regular rate and rhythm. No loud murmur ABDOMEN: Soft, no tenderness , EXTREMITIES: No edema of feet. SKIN: No rash, no masses palpable. NEUROLOGICAL: The patient is awake, alert, oriented x3, mood and affect normal. Results CBC & Chem 7: 03/31/25 06:05 03/31/25 06:05 Labs: Abnormal Lab Results - Last 24 Hours (Table) 03/30/25 03/30/25 Range/Units 06:40 06:40 WBC 18.09 H (4.50-10.00) 10*3/uL MPV 9.4 L (9.5-12.2) fL Immature Gran # 0.09 H (0.00-0.04) 10*3/uL Neutrophils # 14.81 H (1.80-7.70) 10*3/uL Monocytes # 1.20 H (0.20-1.00) 10*3/uL Eosinophils # 0.00 L (0.04-0.35) 10*3/uL Carbon Dioxide 21 L (22-30) mmol/L Glucose 118 H (74-99) mg/dL Total Protein 8.7 H (6.3-8.2) g/dL Albumin 5.2 H (3.5-5.0) g/dL Assessment and Plan (1) Leukocytosis Current Visit: Yes Status: Acute Code(s): D72.829 - ELEVATED WHITE BLOOD CELL COUNT, UNSPECIFIED SNOMED Code(s): 923532498 (2) Bronchitis Current Visit: Yes Status: Acute Code(s): J40 - BRONCHITIS, NOT SPECIFIED ACUTE OR CHRONIC SNOMED Code(s): 36957483 (3) Dental caries Current Visit: Yes Status: Acute Code(s): K02.9 - DENTAL CARIES, UNSPECIFIED SNOMED Code(s): 81306671 (4) Pneumomediastinum Current Visit: Yes Status: Acute Code(s): J98.2 - INTERSTITIAL EMPHYSEMA SNOMED Code(s): 81938962 Plan: 1patient presented to hospital with chest and neck area pain in this patient with no fever or tachycardia however he did have elevated white count elevated CRP and did have evidence of extensive changes on the neck and chest CT but did not mention any evidence of tracheal or esophageal injury there was evidence of pneumomediastinum bronchitis and dental caries 2-patient also complaining of cough and redness and purulent sputum sputum culture has been requested 3-patient empirically covered with Zosyn while waiting for the workup to be completed Question concern answered We will follow on clinical condition and cultures to further adjust medication if needed Thank you for this consultation we will follow the patient along with you Dictation was produced using [employer] dictation software. please excuse any grammatical, word or spelling errors. Time with Patient: Greater than 30
--- NOTE | 2025-03-31 12:07 | P.PN ---
Subjective Progress Note Date: 03/31/25 This is a very pleasant 29-year-old male patient with a known history of ADHD maintained on Adderall in the outpatient setting. 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 He presented here to the emergency room early this morning with complaints of chest pain and left s [place] pain with some shortness of breath. He was also having some discomfort in his neck. The pain was radiating to the epigastric rating and to his back. No nausea or vomiting. He was quite anxious on arrival. Chest x-ray revealed prominent subcutaneous emphysema right greater than left base of the neck. Accompanying trace pneumomediastinum. Could not exclude any penetrating trauma. No pneumothorax or other acute pulmonary process. Ultrasound of the gallbladder revealed no gallstones or biliary ductal dilatation. CT scan of the neck and chest revealed extensive tracking subcutaneous emphysema up to the level of the nasopharyngeal/oropharyngeal junction, right greater than left. No oral contrast excavation was seen. No direct injury noted. Pneumomediastinum without etiology identified. The tracking ear is noted to be more extensive within the neck. EKG revealed no acute ST or T wave abnormalities. White count 18.0. Hemoglobin 16.8. Platelets 319. Sodium 140. Potassium 4.5. Bicarb 21. BUN 14. Creatinine 0.66. Glucose 118. Troponin negative x 1. D-dimer 0.45. He is seen today in consultation in the emergency department. He is currently resting on a stretcher. His pain medications have been helping somewhat. Upon sitting up he is in quite a significant amount of pain. Mostly in his anterior chest and neck region. He is maintaining good O2 saturations in the 90s on room air oxygen. He is afebrile. Hemodynamically stable. The patient is seen today March 31, 2025 in follow-up on the selective care unit. He is currently resting in bed. Awake and alert in no acute distress. Still with some significant chest, back and neck discomfort. Mostly with even minimal movement. Chest x-ray shows pneumomediastinum persists although a little less conspicuous than yesterday's x-ray. Air tracking within the neck also persistent but improved. White count 10.2. Hemoglobin 14.3. Platelets 276. Sodium 137. Potassium 4.0. Bicarb 26. BUN 15. Creatinine 0.8. Glucose 93. He is requiring [place], Dilaudid and Toradol for pain control. Protonix for GI prophylaxis. Objective - Vital Signs Vital signs: Vital Signs Temp 97.8 F 03/31/25 09:13 Pulse 87 03/31/25 11:09 Resp 18 03/31/25 11:09 BP 134/86 03/31/25 11:09 Pulse Ox 97 03/31/25 11:09 FiO2 Intake & Output 03/30/25 03/31/25 03/31/25 18:59 06:59 18:59 Intake Total 550 Balance 550 Weight 91.9 kg Intake: Oral 550 Other: Voiding Method Toilet Toilet # Voids 1 - Exam GENERAL EXAM: Alert, 29-year-old male, on room air oxygen, resting in bed, fairly comfortable in no apparent distress. HEAD: Normocephalic. EYES: Normal reaction of pupils, equal size. NOSE: Clear with pink turbinates. THROAT: No erythema or exudates. NECK: No masses, no JVD. Positive crepitation right greater than left CHEST: Extensive subcutaneous emphysema. LUNGS: Equal air entry with no crackles, wheeze, rhonchi or dullness. CVS: S1 and S2 normal with no audible murmur, regular rhythm. ABDOMEN: No hepatosplenomegaly, normal bowel sounds, no guarding or rigidity. SPINE: No scoliosis or deformity SKIN: No rashes CENTRAL NERVOUS SYSTEM: No focal deficits, tone is normal in all 4 extremities. EXTREMITIES: There is no peripheral edema. No clubbing, no cyanosis. Peripheral pulses are intact. - Labs CBC & Chem 7: 03/31/25 06:05 03/31/25 06:05 Labs: Abnormal Lab Results - Last 24 Hours (Table) 03/30/25 03/30/25 03/31/25 Range/Units 06:40 06:40 06:05 WBC 10.26 H (4.50-10.00) 10*3/uL MPV 9.4 L (9.5-12.2) fL Eosinophils # 0.00 L (0.04-0.35) 10*3/uL ESR 34 H (0-15) mm/Hr C-Reactive Protein 2.2 H (<1.0) mg/dL Assessment and Plan Assessment: Acute chest pain radiating to the back and neck secondary to a pneumomediastinum. 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 Subcutaneous emphysema of the anterior chest and neck right greater than left secondary to above History of ADHD History of vaping, marijuana use History of anxiety/depression/bipolar disorder History of irritable bowel syndrome Plan: The patient was seen and evaluated Chest x-ray, labs and medications reviewed Currently stable and on room air oxygen Thoracic surgery following Educated regarding complete smoking cessation Assure for adequate pain control Continue incentive spirometer Increase his activity as tolerated We will continue to follow I have personally seen and examined the patient, performed the documentation and the assessment and plan as written. Number of minutes spent on the visit: 10 Dictation was produced using [employer] dictation software. Please excuse any grammatical, word or spelling errors.
--- NOTE | 2025-03-31 15:19 | P.PN ---
Subjective Progress Note Date: 03/31/25 Principal diagnosis: Reason for follow-up is leukocytosis, bronchitis, dental caries Patient is a 29-year-old male with a past medical history significant for Crohn's IBS ADHD anxiety bipolar depression and marijuana use presenting to the hospital for evaluation of chest pain and abdominal pain patient complaining of pain to the left side of the chest and the shoulder area patient did have elevated white count CT of the neck and chest daily did shows significant kim bcutaneous emphysema but no evidence of any tracheal or esophageal perforation patient also have a cough with purulent sputum and evidence of bronchitis on the CT. On today's evaluation that is 03/31/2025, patient did have a temperature of 97.8 F this morning and denies having any chills, patient is on room air and breathing slightly comfortably still complaining of chest pain especially worse with the coughing and has been on some purulent sputum no abdominal pain or diarrhea. Patient white count is down to 10.26, creatinine 0.80 blood cultures pending sputum is pending as well Objective - Vital Signs Vital signs: Vital Signs Temp 97.8 F 03/31/25 09:13 Pulse 87 03/31/25 11:09 Resp 18 03/31/25 11:09 BP 134/86 03/31/25 11:09 Pulse Ox 97 03/31/25 11:09 FiO2 Intake & Output 03/30/25 03/31/25 03/31/25 18:59 06:59 18:59 Intake Total 550 240 Balance 550 240 Weight 91.9 kg Intake: Oral 550 240 Other: Voiding Method Toilet Toilet # Voids 1 - Exam GENERAL DESCRIPTION: Middle-age male lying in bed in no distress RESPIRATORY SYSTEM: Unlabored breathing , decreased breath sounds at bases HEART: S1 S2 regular rate and rhythm , ABDOMEN: Soft , no tenderness EXTREMITIES: No edema feet - Labs CBC & Chem 7: 03/31/25 06:05 03/31/25 06:05 Labs: Abnormal Lab Results - Last 24 Hours (Table) 03/30/25 03/30/25 03/31/25 Range/Units 06:40 06:40 06:05 WBC 10.26 H (4.50-10.00) 10*3/uL MPV 9.4 L (9.5-12.2) fL Eosinophils # 0.00 L (0.04-0.35) 10*3/uL ESR 34 H (0-15) mm/Hr C-Reactive Protein 2.2 H (<1.0) mg/dL Microbiology - Last 24 Hours (Table) 03/30/25 07:28 Blood Culture - Preliminary Blood Assessment and Plan (1) Leukocytosis Current Visit: Yes Status: Acute Code(s): D72.829 - ELEVATED WHITE BLOOD CELL COUNT, UNSPECIFIED SNOMED Code(s): 780101605 (2) Bronchitis Current Visit: Yes Status: Acute Code(s): J40 - BRONCHITIS, NOT SPECIFIED ACUTE OR CHRONIC SNOMED Code(s): 39123485 (3) Dental caries Current Visit: Yes Status: Acute Code(s): K02.9 - DENTAL CARIES, UNSPECIFIED SNOMED Code(s): 75019426 (4) Pneumomediastinum Current Visit: Yes Status: Acute Code(s): J98.2 - INTERSTITIAL EMPHYSEMA SNOMED Code(s): 53569866 Plan: 1patient presented to hospital with chest and neck area pain in this patient with no fever or tachycardia however he did have elevated white count elevated CRP and did have evidence of extensive changes on the neck and chest CT but did not mention any evidence of tracheal or esophageal injury there was evidence of pneumomediastinum bronchitis and dental caries 2-patient also complaining of cough and redness and purulent sputum sputum culture has been collected results are currently pending 3-patient white to starting admission some improvement we recommend continue the patient on Zosyn while waiting for the culture to finalize Dictation was produced using [employer] dictation software. please excuse any grammatical, word or spelling errors. Time with Patient: Less than 30
[2025-03-31] MEDS: PIPERACILLIN-TAZOBACTAM 3.375 GM in SODIUM CHLORIDE 0.9% 100 ML IVPB SCH (16:38)
[2025-03-31] MEDS ORDERED: NON FORMULARY DRUG (Dextroamphetamine/Amphetamine [Adderall] 20 MG Tablet) PO SCH (17:45)
--- NOTE | 2025-04-01 03:29 | PN ---
PROGRESS NOTE DATE OF SERVICE: 03/31/2025 SUBJECTIVE: This is a 29-year-old gentleman admitted with pneumomediastinum after severe exertion. He is being closely monitored. White count is elevated. The patient is on empiric antibiotics. No chest pain. No palpitation. OBJECTIVE: VITAL SIGNS: On exam, pulse is 59, blood pressure 102/60, respirations 18. CHEST: Clear to auscultation. CARDIOVASCULAR: S1, s2. RESPIRATIONS: No rhonchi. No crackles. ABDOMEN: Soft, nontender. No crepitus appreciated. LABS: WBC 10.26. ASSESSMENT: 1. Acute sudden onset of pneumomediastinum and subcutaneous emphysema of undetermined etiology. 2. Elevated WBC, rule out sepsis. 3. History of Crohn's disease with history of irritable bowel syndrome. 4. History of anxiety, bipolar, depression. 5. History of vaping. RECOMMENDATIONS: Recommend to continue current management and symptomatic treatment. Otherwise, I would recommend empiric antibiotics. Follow up labs. I would also recommend barium swallow also. Further recommendations to follow. MMODL / IJN: [id number] /
[2025-04-01 07:07] LABS: Basophils # (A) 0.01 10*3/uL (0.00-0.10); Basophils % (A) 0.1 %; Eosinophils # (A) 0.00 10*3/uL (0.04-0.35); Eosinophils % (A) 0.0 %; HCT 41.5 % (39.6-50.0); HGB 14.2 g/dL (13.0-17.0); Lymphocytes # (A) 2.47 10*3/uL (0.90-5.00); Lymphocytes % (A) 35.1 %; MCH 30.2 pg (27.0-32.0); MCHC 34.2 g/dL (32.0-37.0); MCV 88.3 fL (80.0-97.0); Monocytes # (A) 0.72 10*3/uL (0.20-1.00); Monocytes % (A) 10.2 %; Neutrophils # (A) 3.81 10*3/uL (1.80-7.70); Neutrophils % (A) 54.3 %; Platelet Count 257 10*3/uL (140-440); RBC 4.70 10*6/uL (4.40-5.60); RDW 12.1 % (11.5-14.5); WBC 7.03 10*3/uL (4.50-10.00)
[2025-04-01 07:22] LABS: African American GFR (CKD) >90 (>60 ml/min/1.73 sqM); Anion Gap 8 mmol/L; Blood Urea Nitrogen 14 mg/dL (9-20); Calcium 9.0 mg/dL (8.4-10.2); Carbon Dioxide 27 mmol/L (22-30); Chloride 105 mmol/L (98-107); Glucose 101 mg/dL (74-99); Non-African American GFR(CKD) >90 (>60 ml/min/1.73 sqM); Potassium 4.0 mmol/L (3.5-5.1); Sodium 140 mmol/L (137-145)
[2025-04-01] MEDS ORDERED: BARIUM SULFATE 2% - 450 ML ORAL.SUSP BOTTLE PO PRN (09:36)
--- NOTE | 2025-04-01 10:19 | XR ---
EXAMINATION TYPE: XR chest 1V portable DATE OF EXAM: 04/01/2025 10:10 AM COMPARISON: 03/31/2025 CLINICAL INDICATION: Male, 29 years old with history of pneumomedistinum, Chest pain TECHNIQUE: Single frontal view of the chest is obtained. FINDINGS: There is no focal air space opacity, pleural effusion, or pneumothorax seen. The cardiac silhouette size is within normal limits. The osseous structures are intact. IMPRESSION: 1. No acute process. [facility], , 04/01/2025 10:16 AM
--- NOTE | 2025-04-01 11:05 | CT ---
EXAMINATION TYPE: CT abdomen pelvis wo con DATE OF EXAM: 04/01/2025 10:57 AM COMPARISON: None. CLINICAL INDICATION: Male, 29 years old with history of Abdominal pain, UPPER ABD PAIN TECHNIQUE: Axial images with sagittal coronal reformats. Examination of the solid and hollow viscera is limited given the lack of contrast. CT DLP: 738.5 mGycm, Automated exposure control for dose reduction was used. FINDINGS: LUNG BASES: No evidence for nodule. No evidence for infiltrate. LIVER/GB: The gallbladder is unremarkable. No space-occupying hepatic lesion. PANCREAS: No pancreatic mass identified. No inflammatory process seen. SPLEEN: No evidence for splenomegaly. No intrasplenic lesions seen. ADRENALS: No adrenal nodules identified. No evidence for thickening. KIDNEYS: No evidence for renal mass. No nephrolithiasis. No hydronephrosis. BOWEL: Appendix has a normal appearance. No evidence of bowel obstruction. No inflammatory process. Lymph nodes: No evidence for adenopathy greater than 1 cm. Abdominal aorta: Atheromatous changes seen. No evidence for aneurysm. Genital organs: No significant abnormality. Other: No significant abnormality. IMPRESSION: NO ACUTE PROCESS SEEN TO ACCOUNT FOR THE PATIENT'S SYMPTOMS. [facility], , 04/01/2025 11:02 AM
--- NOTE | 2025-04-01 12:07 | P.PN ---
Subjective Progress Note Date: 04/01/25 This is a very pleasant 29-year-old male patient with a known history of ADHD maintained on Adderall in the outpatient setting. 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 He presented here to the emergency room early this morning with complaints of chest pain and left s houlder pain with some shortness of breath. He was also having some discomfort in his neck. The pain was radiating to the epigastric rating and to his back. No nausea or vomiting. He was quite anxious on arrival. Chest x-ray revealed prominent subcutaneous emphysema right greater than left base of the neck. Accompanying trace pneumomediastinum. Could not exclude any penetrating trauma. No pneumothorax or other acute pulmonary process. Ultrasound of the gallbladder revealed no gallstones or biliary ductal dilatation. CT scan of the neck and chest revealed extensive tracking subcutaneous emphysema up to the level of the nasopharyngeal/oropharyngeal junction, right greater than left. No oral contrast excavation was seen. No direct injury noted. Pneumomediastinum without etiology identified. The tracking ear is noted to be more extensive within the neck. EKG revealed no acute ST or T wave abnormalities. White count 18.0. Hemoglobin 16.8. Platelets 319. Sodium 140. Potassium 4.5. Bicarb 21. BUN 14. Creatinine 0.66. Glucose 118. Troponin negative x 1. D-dimer 0.45. He is seen today in consultation in the emergency department. He is currently resting on a stretcher. His pain medications have been helping somewhat. Upon sitting up he is in quite a significant amount of pain. Mostly in his anterior chest and neck region. He is maintaining good O2 saturations in the 90s on room air oxygen. He is afebrile. Hemodynamically stable. The patient is seen today March 31, 2025 in follow-up on the selective care unit. He is currently resting in bed. Awake and alert in no acute distress. Still with some significant chest, back and neck discomfort. Mostly with even minimal movement. Chest x-ray shows pneumomediastinum persists although a little less conspicuous than yesterday's x-ray. Air tracking within the neck also persistent but improved. White count 10.2. Hemoglobin 14.3. Platelets 276. Sodium 137. Potassium 4.0. Bicarb 26. BUN 15. Creatinine 0.8. Glucose 93. He is requiring [place], Dilaudid and Toradol for pain control. Protonix for GI prophylaxis. The patient is seen today April 01, 2025 in follow-up on the selective care unit. He is awake and alert in no acute distress. His chest neck and back discomfort have been slightly improving daily. Chest x-ray reveals no acute process. He is maintaining good O2 saturations in the high 90s on room air. He has been afebrile. Hemodynamically stable. White count 7.0. Hemoglobin 14.2. Platelets 257. Sodium 140. Potassium 4.0. Bicarb 27. BUN 14. Creatinine 0.83. Glucose 101. Blood culture revealed no growth. Sputum culture revealed no growth. He remains on Zosyn per infectious disease. Today he is complaining of significant abdominal pain. States he had a bowel movement this morning and since that time he has had abdominal pain. Objective - Vital Signs Vital signs: Vital Signs Temp 98.0 F 04/01/25 09:25 Pulse 71 04/01/25 09:26 Resp 16 04/01/25 09:26 BP 107/66 04/01/25 09:25 Pulse Ox 99 04/01/25 09:25 FiO2 Intake & Output 03/31/25 04/01/25 04/01/25 18:59 06:59 18:59 Intake Total 240 790 10 Balance 240 790 10 Weight 91.6 kg Intake: IV 10 10 Invasive Line 2 10 10 Oral 240 780 Other: Voiding Method Toilet Toilet Toilet # Voids 2 - Exam GENERAL EXAM: Alert, 29-year-old male, on room air oxygen, resting in bed, complaining of abdominal pain. HEAD: Normocephalic. EYES: Normal reaction of pupils, equal size. NOSE: Clear with pink turbinates. THROAT: No erythema or exudates. NECK: No masses, no JVD. CHEST: No chest wall abnormalities. LUNGS: Equal air entry with no crackles, wheeze, rhonchi or dullness. CVS: S1 and S2 normal with no audible murmur, regular rhythm. ABDOMEN: No hepatosplenomegaly, normal bowel sounds, no guarding or rigidity. SPINE: No scoliosis or deformity SKIN: No rashes CENTRAL NERVOUS SYSTEM: No focal deficits, tone is normal in all 4 extremities. EXTREMITIES: There is no peripheral edema. No clubbing, no cyanosis. Peripheral pulses are intact. - Labs CBC & Chem 7: 04/01/25 06:30 04/01/25 06:30 Labs: Abnormal Lab Results - Last 24 Hours (Table) 04/01/25 04/01/25 Range/Units 06:30 06:30 MPV 9.2 L (9.5-12.2) fL Eosinophils # 0.00 L (0.04-0.35) 10*3/uL Glucose 101 H (74-99) mg/dL Microbiology - Last 24 Hours (Table) 03/30/25 18:00 Gram Stain - Preliminary Sputum Sputum Culture - Preliminary 03/30/25 07:28 Blood Culture - Preliminary Blood Assessment and Plan Assessment: Acute chest pain radiating to the back and neck secondary to a pneumomediast inum. 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 Subcutaneous emphysema of the anterior chest and neck right greater than left secondary to above improving Acute abdominal pain History of ADHD History of vaping, marijuana use History of anxiety/depression/bipolar disorder History of irritable bowel syndrome Plan: The patient was seen and evaluated Chest x-ray, labs and medications reviewed Currently stable and on room air oxygen Planing of significant abdominal pain today CT scan of the abdomen pelvis ordered Surgical consult placed Assure for adequate pain control Continue incentive spirometer Increase his activity as tolerated We will continue to follow I have personally seen and examined the patient, performed the documentation and the assessment and plan as written. Number of minutes spent on the visit: 10 Dictation was produced using [employer] dictation software. Please excuse any grammatical, word or spelling errors.
[2025-04-01] MEDS: ONDANSETRON 4 MG/2 ML VIAL IVP PRN (12:27)
[2025-04-01] MEDS ORDERED: HYDROcodone/APAP 15 ML SOLUTION PO PRN (13:53)
[2025-04-01] MEDS ORDERED: ACETAMINOPHEN ORAL SUSP (PEDS) 3,840 MG/120 ML BOTTLE PO PRN (13:53)
[2025-04-01] MEDS ORDERED: LORazepam 1 MG/0.5 ML VIAL IV PRN (13:55)
[2025-04-01] MEDS: SODIUM CHLORIDE 0.9% 1,000 ML IV SCH (13:58)
--- NOTE | 2025-04-01 15:23 | P.PN ---
Subjective Progress Note Date: 04/01/25 Principal diagnosis: Reason for follow-up is leukocytosis, bronchitis, dental caries Patient is a 29-year-old male with a past medical history significant for Crohn's IBS ADHD anxiety bipolar depression and marijuana use presenting to the hospital for evaluation of chest pain and abdominal pain patient complaining of pain to the left side of the chest and the shoulder area patient did have elevated white count CT of the neck and chest daily did shows significant kim bcutaneous emphysema but no evidence of any tracheal or esophageal perforation patient also have a cough with purulent sputum and evidence of bronchitis on the CT. On today's evaluation that is 04/01/2025, Patient is afebrile patient is currently on room air and breathing slightly comfortably the patient chest pain has slightly decreased in intensity no worsening cough or sputum production no nausea no vomiting did have some abdominal pain this morning resolved. Patient white normalized to 7.03, creatinine 0.83 sputum culture pending chest x-ray this morning no acute process CT abdominal pelvis did not show any acute abnormality Objective - Vital Signs Vital signs: Vital Signs Temp 98.3 F 04/01/25 12:26 Pulse 64 04/01/25 12:26 Resp 16 04/01/25 12:26 BP 134/80 04/01/25 12:26 Pulse Ox 98 04/01/25 12:26 FiO2 Intake & Output 03/31/25 04/01/25 04/01/25 18:59 06:59 18:59 Intake Total 240 790 10 Balance 240 790 10 Weight 91.6 kg Intake: IV 10 10 Invasive Line 2 10 10 Oral 240 780 Other: Voiding Method Toilet Toilet Toilet # Voids 2 - Exam GENERAL DESCRIPTION: Middle-age male lying in bed in no distress RESPIRATORY SYSTEM: Unlabored breathing , decreased breath sounds at bases HEART: S1 S2 regular rate and rhythm , ABDOMEN: Soft , no tenderness EXTREMITIES: No edema feet - Labs CBC & Chem 7: 04/01/25 06:30 04/01/25 06:30 Labs: Abnormal Lab Results - Last 24 Hours (Table) 04/01/25 04/01/25 Range/Units 06:30 06:30 MPV 9.2 L (9.5-12.2) fL Eosinophils # 0.00 L (0.04-0.35) 10*3/uL Glucose 101 H (74-99) mg/dL Microbiology - Last 24 Hours (Table) 03/30/25 18:00 Gram Stain - Preliminary Sputum Sputum Culture - Preliminary 03/30/25 07:28 Blood Culture - Preliminary Blood Assessment and Plan (1) Leukocytosis Current Visit: Yes Status: Acute Code(s): D72.829 - ELEVATED WHITE BLOOD CELL COUNT, UNSPECIFIED SNOMED Code(s): 301571426 (2) Bronchitis Current Visit: Yes Status: Acute Code(s): J40 - BRONCHITIS, NOT SPECIFIED ACUTE OR CHRONIC SNOMED Code(s): 64206317 (3) Dental caries Current Visit: Yes Status: Acute Code(s): K02.9 - DENTAL CARIES, UNSPECIFIED SNOMED Code(s): 87606400 (4) Pneumomediastinum Current Visit: Yes Status: Acute Code(s): J98.2 - INTERSTITIAL EMPHYSEMA SNOMED Code(s): 26472345 Plan: 1patient presented to hospital with chest and neck area pain in this patient with no fever or tachycardia however he did have elevated white count elevated CRP and did have evidence of extensive changes on the neck and chest CT but did not mention any evidence of tracheal or esophageal injury there was evidence of pneumomediastinum bronchitis and dental caries 2-patient also complaining of cough and redness and purulent sputum sputum culture has been collected results are currently pending 3-patient did have resolution of his leukocytosis we will continue with Zosyn while waiting for the culture to finalize Dictation was produced using [employer] dictation software. please excuse any grammatical, word or spelling errors. Time with Patient: Less than 30
--- NOTE | 2025-04-01 15:41 | P.CON ---
Consult Note - . Consult date: 04/01/25 Assessment/Plan:: This is a 29-year-old male who presents to the emergency department for chest pain and abdominal pain. Family states that last night he was starting to complain of some discomfort in the chest and left shoulder area. Last night the pain started to get worse and states that he has been up all night and unable to sleep due to the discomfort. Describes the pain as being in the lower chest to epigastric region and radiating into the back. Pain is worse when he breathes however he denies any shortness of breath. Denies any personal or family history of cardiac problems. Denies any history of similar pain in the past. Reports mild nausea but no vomiting. Patient is currently hyperventilating and states that he feels very anxious and is unable to sit still. CT-AP shows no acute process. Patient is very tender at umbilical hernia site. Review of Systems ROS Statement: Those systems with pertinent positive or pertinent negative responses have been documented in the HPI. ROS Other: All systems not noted in ROS Statement are negative. Past Medical History Past Medical History: No Reported History Additional Past Medical History / Comment(s): Crohns, IBS History of Any Multi-Drug Resistant Organisms: None Reported Past Surgical History: Orthopedic Surgery Additional Past Surgical History / Comment(s): rt hand Past Anesthesia/Blood Transfusion Reactions: No Reported Reaction Past Psychological History: Anxiety, Bipolar, Depression Smoking Status: Vaper Past Alcohol Use History: None Reported Past Drug Use History: Marijuana - Past Family History Father Family Medical History: Cancer General Exam Limitations: no limitations General appearance: alert, anxious Head exam: Present: atraumatic, normocephalic, normal inspection Respiratory exam: Present: normal lung sounds bilaterally. Absent: respiratory distress, wheezes, rales, rhonchi, stridor Cardiovascular Exam: Present: normal rhythm, tachycardia GI/Abdominal exam: Present: soft, tenderness (Epigastric). Absent: distended Neurological exam: Present: alert, oriented X3, CN II-XII intact Psychiatric exam: Present: normal affect, normal mood Skin exam: Present: warm, dry, intact, normal color. Absent: rash 29 year old male with epigastric pain and Umbilical Hernia -Will plan for EGD tomorrow and Umbilical Hernia Repair Wednesday. Patient and agreeable Jose Martinez DO [facility] [facility] [phone]
--- NOTE | 2025-04-01 17:05 | PN ---
PROGRESS NOTE DATE OF SERVICE: 03/31/2025 SUBJECTIVE: This is a 29-year-old gentleman who was admitted with sudden onset of pneumomediastinum, has some difficulty in swallowing also. The patient underwent an abdominopelvic scan, because of abdominal pain. Surgery and Gastroenterology evaluations in progress. At this time, barium swallow is pending. OBJECTIVE: VITAL SIGNS: On exam, pulse is 58, blood pressure 110/72, respirations 16. CHEST: No rhonchi. No crackles. ABDOMEN: Soft. NERVOUS SYSTEM: Nonfocal. LABORATORY DATA: WBC 7.0, otherwise the labs are noted. ASSESSMENT: 1. Acute sudden onset of pneumomediastinum and subcutaneous emphysema, undermined etiology. 2. Increased WBC. Rule out sepsis. 3. History of Crohn's disease with history of irritable bowel syndrome. 4. History of anxiety, bipolar, depression. 5. History of vaping. RECOMMENDATIONS: Recommend to continue current management and continue symptomatic treatment. Otherwise repeat labs. Closely monitor. Guarded prognosis. Further recommendations to follow. MMODL / IJN: [id number] /
[2025-04-01 22:48] LABS: Bacteria,Urine Rare /hpf; Bilirubin,Urine Negative (Negative); Blood,Urine Negative (Negative); Budding Yeast,Urine Few /hpf; Color,Urine Light Yellow; Glucose,Urine (UA) Negative (Negative); Ketones,Urine Negative (Negative); Leukocyte Esterase,Urine Negative (Negative); Nitrite,Urine Negative (Negative); PH, Urine 6.5 (5.0-8.0); Protein,Urine Negative (Negative); RBC,Urine 2 /hpf (0-5); Specific Gravity,Urine 1.031 (1.001-1.035); Urobilinogen,Urine <2.0 mg/dL (<2.0); WBC,Urine 1 /hpf (0-5)
[2025-04-01 23:01] LABS: Barbiturate Screen,Urine Not Detected (NotDetected); Benzodiazepines Screen,Urine Detected (NotDetected); Opiate Screen,Urine Detected (NotDetected); Oxycodone Screen, Urine Not Detected (NotDetected); Phencyclidine Screen,Urine Not Detected (NotDetected); Tricyclic Antidepressant,Urine Not Detected (NotDetected); Urn Cannabinoid Scrn Detected (NotDetected)
[2025-04-02 08:08] LABS: Basophils # (A) 0.02 10*3/uL (0.00-0.10); Basophils % (A) 0.3 %; Eosinophils # (A) 0.09 10*3/uL (0.04-0.35); Eosinophils % (A) 1.5 %; HCT 37.4 % (39.6-50.0); HGB 13.0 g/dL (13.0-17.0); Lymphocytes # (A) 2.99 10*3/uL (0.90-5.00); Lymphocytes % (A) 48.6 %; MCH 30.7 pg (27.0-32.0); MCHC 34.8 g/dL (32.0-37.0); MCV 88.4 fL (80.0-97.0); Monocytes # (A) 0.60 10*3/uL (0.20-1.00); Monocytes % (A) 9.8 %; Neutrophils # (A) 2.43 10*3/uL (1.80-7.70); Neutrophils % (A) 39.5 %; Platelet Count 255 10*3/uL (140-440); RBC 4.23 10*6/uL (4.40-5.60); RDW 12.2 % (11.5-14.5); WBC 6.15 10*3/uL (4.50-10.00)
[2025-04-02 08:46] LABS: ALT 26 U/L (4-49); AST 21 U/L (17-59); African American GFR (CKD) >90 (>60 ml/min/1.73 sqM); Albumin 3.3 g/dL (3.5-5.0); Alkaline Phosphatase 55 U/L (38-126); Anion Gap 8 mmol/L; Blood Urea Nitrogen 10 mg/dL (9-20); Calcium 8.6 mg/dL (8.4-10.2); Carbon Dioxide 27 mmol/L (22-30); Chloride 105 mmol/L (98-107); Glucose 93 mg/dL (74-99); Non-African American GFR(CKD) >90 (>60 ml/min/1.73 sqM); Potassium 4.6 mmol/L (3.5-5.1); Sodium 140 mmol/L (137-145); Total Protein 5.9 g/dL (6.3-8.2)
[2025-04-02] MEDS: KETOROLAC 15 MG/ML 1 ML VIAL IVP SCH (11:54)
--- NOTE | 2025-04-02 14:23 | P.PN ---
Subjective Progress Note Date: 04/02/25 Principal diagnosis: Pneumomediastinum. This is a very pleasant 29-year-old male patient with a known history of ADHD maintained on Adderall in the outpatient setting. 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 He presented here to the emergency room early this morning with complaints of chest pain and left shoulder pain with some shortness of breath. He was also having some discomfort in his neck. The pain was radiating to the epigastric rating and to his back. No nausea or vomiting. He was quite anxious on arrival. Chest x-ray revealed prominent subcutaneous emphysema right greater than left base of the neck. Accompanying trace pneumomediastinum. Could not exclude any penetrating trauma. No pneumothorax or other acute pulmonary process. Ultrasound of the gallbladder revealed no gallstones or biliary ductal dilatation. CT scan of the neck and chest revealed extensive tracking subcutaneous emphysema up to the level of the nasopharyngeal/oropharyngeal junction, right greater than left. No oral contrast excavation was seen. No direct injury noted. Pneumomediastinum without etiology identified. The tracking ear is noted to be more extensive within the neck. EKG revealed no acute ST or T wave abnormalities. White count 18.0. Hemoglobin 16.8. Platelets 319. Sodium 140. Potassium 4.5. Bicarb 21. BUN 14. Creatinine 0.66. Glucose 118. Troponin negative x 1. D-dimer 0.45. He is seen today in consultation in the emergency department. He is currently resting on a stretcher. His pain medications have been helping somewhat. Upon sitting up he is in quite a significant amount of pain. Mostly in his anterior chest and neck region. He is maintaining good O2 saturations in the 90s on room air oxygen. He is afebrile. Hemodynamically stable. The patient is seen today March 31, 2025 in follow-up on the selective care unit. He is currently resting in bed. Awake and alert in no acute distress. Still with some significant chest, back and neck discomfort. Mostly with even minimal movement. Chest x-ray shows pneumomediastinum persists although a little less conspicuous than yesterday's x-ray. Air tracking within the neck also persistent but improved. White count 10.2. Hemoglobin 14.3. Platelets 276. Sodium 137. Potassium 4.0. Bicarb 26. BUN 15. Creatinine 0.8. Glucose 93. He is requiring [place], Dilaudid and Toradol for pain control. Protonix for GI prophylaxis. The patient is seen today April 01, 2025 in follow-up on the selective care unit. He is awake and alert in no acute distress. His chest neck and back discomfort have been slightly improving daily. Chest x-ray reveals no acute process. He is maintaining good O2 saturations in the high 90s on room air. He has been afebrile. Hemodynamically stable. White count 7.0. Hemoglobin 14.2. Platelets 257. Sodium 140. Potassium 4.0. Bicarb 27. BUN 14. Creatinine 0.83. Glucose 101. Blood culture revealed no growth. Sputum culture revealed no growth. He remains on Zosyn per infectious disease. Today he is complaining of significant abdominal pain. States he had a bowel movement this morning and since that time he has had abdominal pain. Progress note dated April 02, 2025. The patient is seen today in room 373. The patient is scheduled to have a barium swallow today. The patient was admitted a few days ago, with pneumomediastinum. Currently, the patient is on room air. Saturations are 99%. The patient is not receiving any IV fluids. Current laboratory data includes a white count of 6.2, hemoglobin 13, hematocrit 37.4, and a platelet count of 255,000. Sodium 140, potassium 4.6, chlorides 105, CO2 27, BUN 10, and creatinine 0.77. Albumin is 3.3. Drug screen was positive for opiates, benzodiazepines, and marijuana. Sputum and blood cultures were negative. CT scan of the patient's abdomen and pelvis, were essentially negative. Objective - Vital Signs Vital signs: Vital Signs Temp 98.1 F 04/02/25 11:15 Pulse 81 04/02/25 11:15 Resp 18 04/02/25 11:15 BP 109/68 04/02/25 11:15 Pulse Ox 99 04/02/25 11:15 FiO2 Intake & Output 04/01/25 04/02/25 04/02/25 18:59 06:59 18:59 Intake Total 20 20 300 Balance 20 20 300 Weight 93.5 kg Intake: IV 20 20 20 Invasive Line 2 20 20 20 Intake, IV Titration 100 Amount Piperacillin-Tazobactam 3 100 .375 gm In Sodium Chloride 0.9% 100 ml @ 25 mls/hr IVPB Q8HR [facility] Rx# :[id number] Oral 180 Other: Voiding Method Toilet Toilet Toilet # Voids 1 1 3 # Bowel Movements 1 - Exam No acute distress, oriented 3. No respiratory distress. Currently on room air. HEENT examination is grossly unremarkable. Mucous membranes are moist. No oral lesions. Neck supple. Full range of motion. No adenopathy thyromegaly or neck vein distention. Cardiovascular examination reveals regular rhythm rate. S1-S2 normal. No S3 or S4. No discernible murmur noted. Lungs reveal clear breath sounds. Breath sounds are equal bilaterally. No adventitious lung sounds including wheezes rhonchi or crackles. Abdomen soft bowel sounds are heard. No masses or tenderness. Extremities are intact. No cyanosis clubbing or edema. Skin is without rash or lesion. Neurologic examination is brief but nonfocal. - Labs CBC & Chem 7: 04/02/25 07:38 04/02/25 07:38 Labs: Abnormal Lab Results - Last 24 Hours (Table) 04/01/25 04/02/25 04/02/25 Range/Units 22:00 07:38 07:38 RBC 4.23 L (4.40-5.60) 10*6/uL Hct 37.4 L (39.6-50.0) % MPV 9.3 L (9.5-12.2) fL Total Protein 5.9 L (6.3-8.2) g/dL Albumin 3.3 L (3.5-5.0) g/dL Urine Bacteria Rare H (None) /hpf Urine Yeast (Budding) Few H (None) /hpf Urine Opiates Screen Detected H (NotDetected) U Benzodiazepines Scrn Detected H (NotDetected) U Marijuana (THC) Screen Detected H (NotDetected) Microbiology - Last 24 Hours (Table) 03/30/25 07:28 Blood Culture - Preliminary Blood 03/30/25 18:00 Gram Stain - Final Sputum Sputum Culture - Final Assessment and Plan Assessment: Acute chest pain radiating to the back and neck secondary to a pneumomediastinum. Subcutaneous emphysema of the anterior chest and neck right greater than left secondary to above. Acute abdominal pain History of ADHD. History of vaping, marijuana use. History of anxiety/depression/bipolar disorder. History of irritable bowel syndrome. Plan: Plan dated April 02, 2025. The patient is seen today in room 373. The patient is on room air. Saturations are in the mid to high 90s. Labs, x-rays, and all medications are reviewed. CT scan of the abdomen and pelvis, showed nothing acute. The patient was to be s een by surgery. We will continue to follow make recommendations. Prognosis is thought to be good. The patient remains a full code. Dictation was produced using [employer] dictation software. Please excuse any grammatical, word or spelling errors. Time with Patient: Less than 30
--- NOTE | 2025-04-02 15:41 | FL ---
EXAMINATION TYPE: FL barium swallow DATE OF EXAM: 04/02/2025 3:04 PM COMPARISON: CT 04/01/2025 CLINICAL INDICATION: Male, 29 years old with history of chest pain/nausea, scheduled for EGD tomorrow and subsequent abdominal wall hernia repair. Total fluoroscopy time 1 minute 54 seconds. Total images: 41 Total DAP: 471 mGycm2. FINDINGS: The swallowing mechanism is normal and hypopharyngeal anatomy is preserved. The cervical and thoracic portions have a normal course and caliber and normal motility. The mucosa is normal and no persistent filling defect is encountered. There is a small sliding hiatal hernia. Gastroesophageal reflux could not be elicited during the cour se of the exam. IMPRESSION: Small sliding hiatal hernia. No gastroesophageal reflux seen during the course of the exam. No other specific abnormality seen on the esophagram. [facility], , 04/02/2025 3:39 PM
--- NOTE | 2025-04-02 15:42 | P.PN ---
Subjective Progress Note Date: 04/02/25 No acute events. Patient planned for upper GI swallow study today. Objective - Vital Signs Vital signs: Vital Signs Temp 98.1 F 04/02/25 11:15 Pulse 81 04/02/25 11:15 Resp 18 04/02/25 11:15 BP 109/68 04/02/25 11:15 Pulse Ox 99 04/02/25 11:15 FiO2 Intake & Output 04/01/25 04/02/25 04/02/25 18:59 06:59 18:59 Intake Total 20 20 300 Balance 20 20 300 Weight 93.5 kg Intake: IV 20 20 20 Invasive Line 2 20 20 20 Intake, IV Titration 100 Amount Piperacillin-Tazobactam 3 100 .375 gm In Sodium Chloride 0.9% 100 ml @ 25 mls/hr IVPB Q8HR [facility] Rx# :[id number] Oral 180 Other: Voiding Method Toilet Toilet Toilet # Voids 1 1 3 # Bowel Movements 1 - Constitutional General appearance: Present: cooperative - Gastrointestinal Gastrointestinal Comment(s): Soft, nontender - Labs CBC & Chem 7: 04/02/25 07:38 04/02/25 07:38 Labs: Abnormal Lab Results - Last 24 Hours (Table) 04/01/25 04/02/25 04/02/25 Range/Units 22:00 07:38 07:38 RBC 4.23 L (4.40-5.60) 10*6/uL Hct 37.4 L (39.6-50.0) % MPV 9.3 L (9.5-12.2) fL Total Protein 5.9 L (6.3-8.2) g/dL Albumin 3.3 L (3.5-5.0) g/dL Urine Bacteria Rare H (None) /hpf Urine Yeast (Budding) Few H (None) /hpf Urine Opiates Screen Detected H (NotDetected) U Benzodiazepines Scrn Detected H (NotDetected) U Marijuana (THC) Screen Detected H (NotDetected) Microbiology - Last 24 Hours (Table) 03/30/25 07:28 Blood Culture - Preliminary Blood 03/30/25 18:00 Gram Stain - Final Sputum Sputum Culture - Final Assessment and Plan Plan: 29-year-old male with epigastric pain and umbilical hernia. He is undergoing workup with swallow study today. Plan for EGD tomorrow and patient to be n.p.o. after midnight. Possibility of umbilical hernia repair during this admission as well secondary to significant pain at the umbilicus.
--- NOTE | 2025-04-02 19:05 | PN ---
PROGRESS NOTE DATE OF SERVICE: 04/02/2025 SUBJECTIVE: This 29-year-old gentleman, admitted with acute onset pneumomediastinum, also had multiple problems including abdominal pain and umbilical hernia. Multiple consultants are following the patient closely. Barium swallow has been done. No chest pain. No palpitations. OBJECTIVE: VITAL SIGNS: Pulse is 81, blood pressure 109/60, respirations 18. CHEST: Clear to auscultation. CARDIOVASCULAR: S1, and S2. ABDOMEN: Soft, . LABORATORY DATA: Reviewed. ASSESSMENT: 1. Acute sudden onset pneumomediastinum and subcutaneous emphysema, undermined origin. 2. Increased WBC. Rule out sepsis. 3. History of Crohn disease. 4. History of irritable bowel syndrome. 5. Umbilical hernia. 6. History of anxiety, bipolar, depression. 7. History of vaping. RECOMMENDATIONS: Recommend to continue current management, empiric antibiotics. Cultures are negative so far. The prognosis is guarded because of multiple complex medical issues. Await barium swallow and surgical gastroenterology evaluations. Prognosis guarded. Further recommendations to follow. MMODL / IJN: [id number] / MTDD
[2025-04-02] MEDS: KETOROLAC 15 MG/ML 1 ML VIAL IVP PRN (19:39)
[2025-04-02] MEDS: HYDROcodone/APAP 5-325MG 1 EACH TAB PO PRN (21:05)
--- NOTE | 2025-04-02 22:06 | P.PN ---
Subjective Progress Note Date: 04/02/25 Principal diagnosis: Reason for follow-up is leukocytosis, bronchitis, dental caries Patient is a 29-year-old male with a past medical history significant for Crohn's IBS ADHD anxiety bipolar depression and marijuana use presenting to the hospital for evaluation of chest pain and abdominal pain patient complaining of pain to the left side of the chest and the shoulder area patient did have elevated white count CT of the neck and chest daily did shows significant kim bcutaneous emphysema but no evidence of any tracheal or esophageal perforation patient also have a cough with purulent sputum and evidence of bronchitis on the CT. On today's evaluation that is 04/02/2025, patient has been afebrile, patient is breathing comfortably and is currently on room air, patient mention improvement in the chest pain and cough, patient denies nausea vomiting or diarrhea and no abdominal pain seem to be slightly frustrated with delay in the testing and the procedure Patient went on a 6.1 creatinine 0.77 UA has been negative sputum cultures so far negative Objective - Vital Signs Vital signs: Vital Signs Temp 98.1 F 04/02/25 11:15 Pulse 81 04/02/25 11:15 Resp 18 04/02/25 11:15 BP 109/68 04/02/25 11:15 Pulse Ox 99 04/02/25 11:15 FiO2 Intake & Output 04/01/25 04/02/25 04/02/25 18:59 06:59 18:59 Intake Total 20 20 190 Balance 20 20 190 Weight 93.5 kg Intake: IV 20 20 10 Invasive Line 2 20 20 10 Oral 180 Other: Voiding Method Toilet Toilet Toilet # Voids 1 1 # Bowel Movements 1 - Exam GENERAL DESCRIPTION: Middle-age male lying in bed in no distress RESPIRATORY SYSTEM: Unlabored breathing , decreased breath sounds at bases HEART: S1 S2 regular rate and rhythm , ABDOMEN: Soft , no tenderness EXTREMITIES: No edema feet - Labs CBC & Chem 7: 04/02/25 07:38 04/02/25 07:38 Labs: Abnormal Lab Results - Last 24 Hours (Table) 04/01/25 04/02/25 04/02/25 Range/Units 22:00 07:38 07:38 RBC 4.23 L (4.40-5.60) 10*6/uL Hct 37.4 L (39.6-50.0) % MPV 9.3 L (9.5-12.2) fL Total Protein 5.9 L (6.3-8.2) g/dL Albumin 3.3 L (3.5-5.0) g/dL Urine Bacteria Rare H (None) /hpf Urine Yeast (Budding) Few H (None) /hpf Urine Opiates Screen Detected H (NotDetected) U Benzodiazepines Scrn Detected H (NotDetected) U Marijuana (THC) Screen Detected H (NotDetected) Microbiology - Last 24 Hours (Table) 03/30/25 07:28 Blood Culture - Preliminary Blood 03/30/25 18:00 Gram Stain - Final Sputum Sputum Culture - Final Assessment and Plan (1) Leukocytosis Current Visit: Yes Status: Acute Code(s): D72.829 - ELEVATED WHITE BLOOD CELL COUNT, UNSPECIFIED SNOMED Code(s): 303599687 (2) Bronchitis Current Visit: Yes Status: Acute Code(s): J40 - BRONCHITIS, NOT SPECIFIED ACUTE OR CHRONIC SNOMED Code(s): 84026558 (3) Dental caries Current Visit: Yes Status: Acute Code(s): K02.9 - DENTAL CARIES, UNSPECIFIED SNOMED Code(s): 04920408 (4) Pneumomediastinum Current Visit: Yes Status: Acute Code(s): J98.2 - INTERSTITIAL EMPHYSEMA SNOMED Code(s): 99840661 Plan: 1patient presented to hospital with chest and neck area pain in this patient with no fever or tachycardia however he did have elevated white count elevated CRP and did have evidence of extensive changes on the neck and chest CT but did not mention any evidence of tracheal or esophageal injury there was evidence of pneumomediastinum bronchitis and dental caries 2-patient also complaining of cough and redness and purulent sputum sputum culture has been collected, just so far negative 3-patient did have resolution of his leukocytosis and culture have been negative so far will consider a short 5-day course of antibiotic therapy in this case Dictation was produced using [employer] software. please excuse any grammatical, word or spelling errors. Time with Patient: Less than 30
[2025-04-03 08:03] LABS: Basophils # (A) 0.04 10*3/uL (0.00-0.10); Basophils % (A) 0.6 %; Eosinophils # (A) 0.11 10*3/uL (0.04-0.35); Eosinophils % (A) 1.6 %; HCT 38.3 % (39.6-50.0); HGB 13.2 g/dL (13.0-17.0); Lymphocytes # (A) 3.67 10*3/uL (0.90-5.00); Lymphocytes % (A) 53.5 %; MCH 30.4 pg (27.0-32.0); MCHC 34.5 g/dL (32.0-37.0); MCV 88.2 fL (80.0-97.0); Monocytes # (A) 0.69 10*3/uL (0.20-1.00); Monocytes % (A) 10.1 %; Neutrophils # (A) 2.32 10*3/uL (1.80-7.70); Neutrophils % (A) 33.8 %; Platelet Count 298 10*3/uL (140-440); RBC 4.34 10*6/uL (4.40-5.60); RDW 12.1 % (11.5-14.5); WBC 6.86 10*3/uL (4.50-10.00)
[2025-04-03 08:28] LABS: African American GFR (CKD) >90 (>60 ml/min/1.73 sqM); Anion Gap 7 mmol/L; Blood Urea Nitrogen 14 mg/dL (9-20); Calcium 8.7 mg/dL (8.4-10.2); Carbon Dioxide 26 mmol/L (22-30); Chloride 107 mmol/L (98-107); Glucose 83 mg/dL (74-99); Non-African American GFR(CKD) >90 (>60 ml/min/1.73 sqM); Potassium 4.0 mmol/L (3.5-5.1); Sodium 140 mmol/L (137-145)
[2025-04-03] MEDS: HYDROmorphone 0.5 MG/0.5 ML SYRINGE IVP PRN (11:06)
--- NOTE | 2025-04-03 12:46 | CDI ---
Documentation Clarification Form Date: 04/03/2025 11:37:24 AM From: Bertha More RN, CCDS Phone: [phone] Admit Date: 03/30/2025 09:28:00 AM Patient Name: Ra Roberson Visit Number: [id number] Discharge Date: ATTENTION: The Clinical Documentation Specialists (CDI) and [facility] Coding Staff appreciate your assistance in clarifying documentation. Please respond to the clarification below the line at the bottom and electronically sign. The CDI & [facility] Coding staff will review the response and follow-up if needed. Please note: Queries are made part of the Legal Health Record. If you have any questions, please contact the author of this message via ITS. DoctorWily Leonsebas Olu Sepsis is documented in the IM H/P and subsequent progress note which may lack sufficient clinical evidence/support in the medical record. Additional clarification is requested. History/Risk Factors: Crohn disease, IBS, Vaping, bipolar Clinical Indicators: 29-year-old present with increasing chest pain with some shortness of breath. He has no fever. 03/30 VS: 154/66 118 18 91% RA, (08:) 124/74 102 22 93% RA 03/30 Labs: WBC 18.09, Neutrophils 14.81, ESR 34,, C-Reactive protein 2.2, Lactic acid 0.9 03/31 Labs: WBC 10.26, Neutrophils 6.62 03/30 Blood culture (pending) preliminary No Growth after [address] scan of the neck and chest demonstrates extensive tracking subcutaneous edema up to the level of the nasopharyngeal/oropharyngeal junction. This may be a spontaneous pneumomediastinum, Treatment: Zosyn 3.375 GM IVPB Q 8 HRS 03/30-04/03 .0 NS 1,000 ML Bolus 03/30.@75 ML/HR 04/01-04/02 After work up and study, please clarify which diagnosis is most appropriate? [ x ] Sepsis is ruled out. The patient had a localized infection without systemic response. [ ] Sepsis was initially suspected, but subsequent clinical findings did not support the diagnosis, and it has been ruled out. [ ] Sepsis is clinically supported as evidenced by these additional clinical indicators: [ ] Other, please specify [ ] Unable to determine (Template Last Reviewed: September 2023) MTDD
--- NOTE | 2025-04-03 13:09 | P.PN ---
Subjective Progress Note Date: 04/03/25 Principal diagnosis: Pneumomediastinum. This is a very pleasant 29-year-old male patient with a known history of ADHD maintained on Adderall in the outpatient setting. 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 He presented here to the emergency room early this morning with complaints of chest pain and left shoulder pain with some shortness of breath. He was also having some discomfort in his neck. The pain was radiating to the epigastric rating and to his back. No nausea or vomiting. He was quite anxious on arrival. Chest x-ray revealed prominent subcutaneous emphysema right greater than left base of the neck. Accompanying trace pneumomediastinum. Could not exclude any penetrating trauma. No pneumothorax or other acute pulmonary process. Ultrasound of the gallbladder revealed no gallstones or biliary ductal dilatation. CT scan of the neck and chest revealed extensive tracking subcutaneous emphysema up to the level of the nasopharyngeal/oropharyngeal junction, right greater than left. No oral contrast excavation was seen. No direct injury noted. Pneumomediastinum without etiology identified. The tracking ear is noted to be more extensive within the neck. EKG revealed no acute ST or T wave abnormalities. White count 18.0. Hemoglobin 16.8. Platelets 319. Sodium 140. Potassium 4.5. Bicarb 21. BUN 14. Creatinine 0.66. Glucose 118. Troponin negative x 1. D-dimer 0.45. He is seen today in consultation in the emergency department. He is currently resting on a stretcher. His pain medications have been helping somewhat. Upon sitting up he is in quite a significant amount of pain. Mostly in his anterior chest and neck region. He is maintaining good O2 saturations in the 90s on room air oxygen. He is afebrile. Hemodynamically stable. The patient is seen today March 31, 2025 in follow-up on the selective care unit. He is currently resting in bed. Awake and alert in no acute distress. Still with some significant chest, back and neck discomfort. Mostly with even minimal movement. Chest x-ray shows pneumomediastinum persists although a little less conspicuous than yesterday's x-ray. Air tracking within the neck also persistent but improved. White count 10.2. Hemoglobin 14.3. Platelets 276. Sodium 137. Potassium 4.0. Bicarb 26. BUN 15. Creatinine 0.8. Glucose 93. He is requiring [place], Dilaudid and Toradol for pain control. Protonix for GI prophylaxis. The patient is seen today April 01, 2025 in follow-up on the selective care unit. He is awake and alert in no acute distress. His chest neck and back discomfort have been slightly improving daily. Chest x-ray reveals no acute process. He is maintaining good O2 saturations in the high 90s on room air. He has been afebrile. Hemodynamically stable. White count 7.0. Hemoglobin 14.2. Platelets 257. Sodium 140. Potassium 4.0. Bicarb 27. BUN 14. Creatinine 0.83. Glucose 101. Blood culture revealed no growth. Sputum culture revealed no growth. He remains on Zosyn per infectious disease. Today he is complaining of significant abdominal pain. States he had a bowel movement this morning and since that time he has had abdominal pain. Progress note dated April 02, 2025. The patient is seen today in room 373. The patient is scheduled to have a barium swallow today. The patient was admitted a few days ago, with pneumomediastinum. Currently, the patient is on room air. Saturations are 99%. The patient is not receiving any IV fluids. Current laboratory data includes a white count of 6.2, hemoglobin 13, hematocrit 37.4, and a platelet count of 255,000. Sodium 140, potassium 4.6, chlorides 105, CO2 27, BUN 10, and creatinine 0.77. Albumin is 3.3. Drug screen was positive for opiates, benzodiazepines, and marijuana. Sputum and blood cultures were negative. CT scan of the patient's abdomen and pelvis, were essentially negative. Progress note dated April 03, 2025. This is a 29-year-old male, who was admitted with a diagnosis of pneumomediastinum. He is sitting comfortably in bed. No acute distress. His only complaint is that of some abdominal pain. The patient had a swallow evaluation on April 02, which revealed a small hiatal hernia. He is scheduled to have EGD today. He has no pulmonary complaints whatsoever. He is on room air. He is not receiving any IV fluids. Labs today include a white count of 6.9, hemoglobin 13.2, hematocrit 38.3, platelet count 298,000. Sodium 140, potassium 4, chlorides 107, CO2 26, BUN 14, creatinine 0.81. Glucose is 83. Calcium is 8.7. Objective - Vital Signs Vital signs: Vital Signs Temp 98 F 04/03/25 11:00 Pulse 60 04/03/25 11:00 Resp 17 04/03/25 11:00 BP 113/75 04/03/25 11:00 Pulse Ox 98 04/03/25 11:00 FiO2 Intake & Output 04/02/25 04/03/25 04/03/25 18:59 06:59 18:59 Intake Total 300 10 Balance 300 10 Weight 93.4 kg Intake: IV 20 10 Invasive Line 2 20 Invasive Line 3 10 Intake, IV Titration 100 Amount Piperacillin-Tazobactam 3 100 .375 gm In Sodium Chloride 0.9% 100 ml @ 25 mls/hr IVPB Q8HR [facility] Rx# :[id number] Oral 180 Other: Voiding Method Toilet Toilet Toilet # Voids 3 1 # Bowel Movements 1 - Exam No acute distress, oriented 3. No respiratory distress. Currently on room air. HEENT examination is grossly unremarkable. Mucous membranes are moist. No oral lesions. Neck supple. Full range of motion. No adenopathy thyromegaly or neck vein distention. Cardiovascular examination reveals regular rhythm rate. S1-S2 normal. No S3 or S4. No discernible murmur noted. Lungs reveal clear breath sounds. Breath sounds are equal bilaterally. No adventitious lung sounds including wheezes rhonchi or crackles. Abdomen soft bowel sounds are heard. No masses or tenderness. Extremities are intact. No cyanosis clubbing or edema. Skin is without rash or lesion. Neurologic examination is brief but nonfocal. - Labs CBC & Chem 7: 04/03/25 07:04 04/03/25 07:04 Labs: Abnormal Lab Results - Last 24 Hours (Table) 04/03/25 Range/Units 07:04 RBC 4.34 L (4.40-5.60) 10*6/uL Hct 38.3 L (39.6-50.0) % MPV 9.4 L (9.5-12.2) fL Microbiology - Last 24 Hours (Table) 03/30/25 07:28 Blood Culture - Preliminary Blood 03/30/25 18:00 Gram Stain - Final Sputum Sputum Culture - Final Assessment and Plan Assessment: Acute chest pain radiating to the back and neck secondary to a pneumomediastinum. Subcutaneous emphysema of the anterior chest and neck right greater than left secondary to above. Acute abdominal pain History of ADHD. History of vaping, marijuana use. History of anxiety/depression/bipolar disorder. History of irritable bowel syndrome. Plan: Plan dated April 02, 2025. The patient is seen today in room 373. The patient is on room air. Saturations are in the mid to high 90s. Labs, x-rays, and all medications are reviewed. CT scan of the abdomen and pelvis, showed nothing acute. The patient was to be seen by surgery. We will continue to follow make recommendations. Prognosis is thought to be good. The patient remains a full code. Dictation was produced using [employer] software. Please excuse any grammatical, word or spelling errors. Plan dated April 03, 2025. The patient continues on room air. His only complaint is that of some mild abdominal discomfort. Swallow evaluation revealed a small hiatal hernia. He is scheduled to have an EGD today. Labs, x-rays, and all medications are reviewed. We will be following the patient, should he not be discharged. Labs, x-rays, and medications are reviewed. Prognosis is thought to be good. No additional recommendations. The patient is without any pulmonary issues including shortness of breath, cough, wheezing, chest tightness, or phlegm production. Dictation was produced using [employer] software. Please excuse any grammatical, word or spelling errors. Time with Patient: Less than 30
--- NOTE | 2025-04-03 15:33 | P.PN ---
Subjective Progress Note Date: 04/03/25 Principal diagnosis: Reason for follow-up is leukocytosis, bronchitis, dental caries Patient is a 29-year-old male with a past medical history significant for Crohn's IBS ADHD anxiety bipolar depression and marijuana use presenting to the hospital for evaluation of chest pain and abdominal pain patient complaining of pain to the left side of the chest and the shoulder area patient did have elevated white count CT of the neck and chest daily did shows significant kim bcutaneous emphysema but no evidence of any tracheal or esophageal perforation patient also have a cough with purulent sputum and evidence of bronchitis on the CT. On today's evaluation that is 04/03/2025, Patient is afebrile this morning patient mention improvement in chest pain shortness of breath and cough has decreased in intensity, the patient is currently on room air, patient denies any abdominal pain no diarrhea no nausea no vomiting. Patient white count 6.86, creatinine 0.81 Objective - Vital Signs Vital signs: Vital Signs Temp 98 F 04/03/25 11:00 Pulse 60 04/03/25 11:00 Resp 17 04/03/25 11:00 BP 113/75 04/03/25 11:00 Pulse Ox 98 04/03/25 11:00 FiO2 Intake & Output 04/02/25 04/03/25 04/03/25 18:59 06:59 18:59 Intake Total 300 10 Balance 300 10 Weight 93.4 kg Intake: IV 20 10 Invasive Line 2 20 Invasive Line 3 10 Intake, IV Titration 100 Amount Piperacillin-Tazobactam 3 100 .375 gm In Sodium Chloride 0.9% 100 ml @ 25 mls/hr IVPB Q8HR [facility] Rx# :[id number] Oral 180 Other: Voiding Method Toilet Toilet Toilet # Voids 3 1 # Bowel Movements 1 - Exam GENERAL DESCRIPTION: Middle-age male lying in bed in no distress RESPIRATORY SYSTEM: Unlabored breathing , decreased breath sounds at bases HEART: S1 S2 regular rate and rhythm , ABDOMEN: Soft , no tenderness EXTREMITIES: No edema feet - Labs CBC & Chem 7: 04/03/25 07:04 04/03/25 07:04 Labs: Abnormal Lab Results - Last 24 Hours (Table) 04/03/25 Range/Units 07:04 RBC 4.34 L (4.40-5.60) 10*6/uL Hct 38.3 L (39.6-50.0) % MPV 9.4 L (9.5-12.2) fL Microbiology - Last 24 Hours (Table) 03/30/25 07:28 Blood Culture - Preliminary Blood Assessment and Plan (1) Leukocytosis Current Visit: Yes Status: Acute Code(s): D72.829 - ELEVATED WHITE BLOOD CELL COUNT, UNSPECIFIED SNOMED Code(s): 639151250 (2) Bronchitis Current Visit: Yes Status: Acute Code(s): J40 - BRONCHITIS, NOT SPECIFIED ACUTE OR CHRONIC SNOMED Code(s): 95430780 (3) Dental caries Current Visit: Yes Status: Acute Code(s): K02.9 - DENTAL CARIES, UNSPECIFIED SNOMED Code(s): 89288278 (4) Pneumomediastinum Current Visit: Yes Status: Acute Code(s): J98.2 - INTERSTITIAL EMPHYSEMA SNOMED Code(s): 62720050 Plan: 1patient presented to hospital with chest and neck area pain in this patient with no fever or tachycardia however he did have elevated white count elevated CRP and did have evidence of extensive changes on the neck and chest CT but did not mention any evidence of tracheal or esophageal injury there was evidence of pneumomediastinum bronchitis and dental caries 2-patient also complaining of cough and was bringing up purulent sputum sputum culture has been collected, just so far negative 3-patient did have resolution of his leukocytosis and culture have been negative so far recommend he discontinue Zosyn after 5-day course of therapy Dictation was produced using [employer] dictation software. please excuse any grammatical, word or spelling errors. Time with Patient: Less than 30
[2025-04-03] MEDS: IV FLUID CONTINUATION 1,000 ML IV ONE (15:55)
[2025-04-03] MEDS ORDERED: PROPOFOL 10 MG/ML 20 ML VIAL IV ONE (16:07)
[2025-04-03] MEDS ORDERED: LIDOCAINE 1% INJ 10MG/ML (20 ML MDV) ONE (16:07)
--- NOTE | 2025-04-03 16:51 | P.OP ---
Date of Procedure: 04/03/25 Preoperative Diagnosis: gi bleed Postoperative Diagnosis: gastric ulcer Procedure(s) Performed: egd w/ biopsy Anesthesia: PASTOR Surgeon: Juan Antonio Bowres Pathology: other (gastric mucosa) Condition: stable Disposition: floor Indications for Procedure: 29 yo male w/ epigastric pain Operative Findings: gastric ulcers Description of Procedure: Patient was transferred where he was placed in the left lateral decubitus position a timeout was performed and everyone agreed with information cited. The outside scope was used to traverse the mouth esophagus stomach into the second portion of the duodenum the scope was slowly retracted looking at the mucosa in a circumferential fashion. There was small spot ulcers in the antrum and body of the stomach these were biopsied hemostasis was achieved the scope was retroflexed no hiatal hernia was seen. The scope was retracted out of the esophagus and the mouth intact. The patient tolerated the procedure without difficulty.
[2025-04-03] MEDS: LACTATED RINGERS 1,000 ML IV SCH (18:01)
--- NOTE | 2025-04-03 20:59 | PN ---
PROGRESS NOTE DATE OF SERVICE: 04/03/2025 SUBJECTIVE: This is a 29-year-old gentleman, admitted with sudden onset of pneumomediastinum and subcutaneous emphysema, is being closely monitored. The patient scheduled to have EGD and as well as umbilical hernia surgery by Surgery. Antral ulcers are noted. OBJECTIVE: VITAL SIGNS: Pulse is 60, blood pressure 130/70, respirations 17. CHEST: No rhonchi. No crackles. ABDOMEN: Soft, nontender. LEGS: No edema. NERVOUS SYSTEM: Nonfocal. CARDIOVASCULAR: S1, S2. Normal. LABORATORY DATA: Reviewed. ASSESSMENT: 1. Acute sudden onset pneumomediastinum, subcutaneous emphysema, undetermined etiology. 2. Antral and body of stomach ulcer in the EGD. 3. Increased WBC, sepsis ruled out. 4. History of Crohn's disease. 5. Medical hernia. 6. History of irritable bowel syndrome. 7. History of anxiety, bipolar, depression. 8. History of vaping. RECOMMENDATIONS: Recommend to continue current management and symptomatic treatment, otherwise EGD has been done. Recommend proton pump inhibitors closely with Surgery. Guarded prognosis for the patient. Repeat labs. Closely follow with multiple consultants for surgery per Surgery. MMODL / IJN: [id number] /
--- NOTE | 2025-04-04 07:13 | XR ---
EXAMINATION TYPE: XR chest 1V portable DATE OF EXAM: 04/04/2025 6:47 AM COMPARISON: Chest radiographs from 04/01/2025 TECHNIQUE: XR chest 1V portable Portable AP radiograph of the chest. CLINICAL INDICATION:Male, 29 years old with history of short of breath, pneumomediastinum; FINDINGS: Lungs/Pleura: There is no evidence of pleural effusion, focal consolidation, or pneumothorax. Pulmonary vascularity: Unremarkable. Heart/mediastinum: Cardiomediastinal silhouette is stable. Improvement in pneumomediastinum from wilmer or exam. Musculoskeletal: No acute osseous pathology. IMPRESSION: Improvement in pneumomediastinum from prior exam. [facility], , 04/04/2025 7:11 AM
[2025-04-04 07:26] LABS: Basophils # (A) 0.05 10*3/uL (0.00-0.10); Basophils % (A) 0.7 %; Eosinophils # (A) 0.11 10*3/uL (0.04-0.35); Eosinophils % (A) 1.5 %; HCT 38.3 % (39.6-50.0); HGB 13.6 g/dL (13.0-17.0); Lymphocytes # (A) 3.41 10*3/uL (0.90-5.00); Lymphocytes % (A) 47.6 %; MCH 31.6 pg (27.0-32.0); MCHC 35.5 g/dL (32.0-37.0); MCV 89.1 fL (80.0-97.0); Monocytes # (A) 0.63 10*3/uL (0.20-1.00); Monocytes % (A) 8.8 %; Neutrophils # (A) 2.91 10*3/uL (1.80-7.70); Neutrophils % (A) 40.7 %; Platelet Count 299 10*3/uL (140-440); RBC 4.30 10*6/uL (4.40-5.60); RDW 12.1 % (11.5-14.5); WBC 7.16 10*3/uL (4.50-10.00)
[2025-04-04 08:06] LABS: African American GFR (CKD) >90 (>60 ml/min/1.73 sqM); Anion Gap 9 mmol/L; Blood Urea Nitrogen 14 mg/dL (9-20); Calcium 8.8 mg/dL (8.4-10.2); Carbon Dioxide 27 mmol/L (22-30); Chloride 103 mmol/L (98-107); Glucose 102 mg/dL (74-99); Non-African American GFR(CKD) >90 (>60 ml/min/1.73 sqM); Potassium 4.4 mmol/L (3.5-5.1); Sodium 139 mmol/L (137-145)
[2025-04-04] MEDS: DEXAMETHASONE SOD PHOSPHATE 4 MG/ML 1 ML VIAL IVP STA (12:47)
[2025-04-04] MEDS: MIDAZOLAM 2 MG/2 ML VIAL IV ONE (12:49)
[2025-04-04] MEDS: IV FLUID CONTINUATION 1,000 ML IV ONE (12:57)
[2025-04-04] MEDS ORDERED: PHENYLEPHRINE-0.9% NACL SYG 1,000 MCG/10 ML SYRINGE ONE (13:40)
[2025-04-04] MEDS ORDERED: GLYCOPYRROLATE 0.2 MG/ML 2 ML VIAL ONE (13:40)
[2025-04-04] MEDS ORDERED: fentaNYL (PF) 50 MCG/ML 2 ML AMP ONE (13:40)
[2025-04-04] MEDS ORDERED: HYDROmorphone (PF) 1 MG/ML ONE (13:40)
[2025-04-04] MEDS ORDERED: NEOSTIGMINE 1 MG/ML 10 ML VIAL ONE (13:40)
[2025-04-04] MEDS ORDERED: ROCURONIUM 10 MG/ML (5 ML VIAL) IV ONE (13:40)
[2025-04-04] MEDS ORDERED: LIDOCAINE 1% INJ 10MG/ML (20 ML MDV) ONE (13:40)
[2025-04-04] MEDS ORDERED: KETOROLAC 15 MG/ML 1 ML VIAL ONE (13:40)
[2025-04-04] MEDS ORDERED: PROPOFOL 10 MG/ML 20 ML VIAL IV ONE (13:40)
[2025-04-04] MEDS ORDERED: SUCCINYLCHOLINE CHLORIDE 200 MG/10 ML VIAL IV ONE (13:40)
[2025-04-04] MEDS ORDERED: MIDAZOLAM 2 MG/2 ML VIAL ONE (13:40)
[2025-04-04] MEDS: HEPARIN SODIUM,PORCINE 5,000 UNIT/ML 1 ML VIAL SQ STA (13:41)
[2025-04-04] MEDS: SODIUM CHLORIDE 0.9% 50 ML with ceFAZolin 2,000 MG IV ONE (13:45)
[2025-04-04] MEDS: LIDOCAINE 1%-EPI 1:100,000 20 ML VIAL SQ ONE (14:15)
--- NOTE | 2025-04-04 14:44 | P.PN ---
Subjective Progress Note Date: 04/04/25 The patients reports similar level of umbilical pain compared to yesterday. Dilaudid and Toradol seem to help a little bit. Does mention painful area slightly larger. Has had 2 BM today. Objective - Vital Signs Vital signs: Vital Signs Temp 98.1 F 04/04/25 12:14 Pulse 58 L 04/04/25 12:14 Resp 16 04/04/25 12:14 BP 130/81 04/04/25 12:14 Pulse Ox 98 04/04/25 12:14 FiO2 Intake & Output 04/03/25 04/04/25 04/04/25 18:59 06:59 18:59 Intake Total 220 240 150 Balance 220 240 150 Weight 94.5 kg Intake: IV 220 150 Invasive Line 3 20 Oral 240 Other: Voiding Method Toilet Toilet Toilet # Voids 2 - Exam Constitutional: No acute distress. Resting in bed. Abdominal: Umbilical hernia visible. Surrounding tenderness to palpation. No visible skin discoloration or breakdown. - Labs CBC & Chem 7: 04/04/25 06:11 04/04/25 06:11 Labs: Abnormal Lab Results - Last 24 Hours (Table) 04/04/25 04/04/25 Range/Units 06:11 06:11 RBC 4.30 L (4.40-5.60) 10*6/uL Hct 38.3 L (39.6-50.0) % MPV 9.4 L (9.5-12.2) fL Immature Gran # 0.05 H (0.00-0.04) 10*3/uL Glucose 102 H (74-99) mg/dL Microbiology - Last 24 Hours (Table) 03/30/25 07:28 Blood Culture - Final Blood Assessment and Plan Assessment: 29 Year old male status post EGD with ulcers with biopsy. -NPO after midnight pending umbilical hernia repair today. - Continue PPI while admitted Attestation Patient seen and examined at bedside. Plan for umbilical hernia repair, robotic today. Risks, benefits and alternatives provided to the patient. Tadeo Chase DO
--- NOTE | 2025-04-04 14:53 | P.OP ---
Date of Procedure: 04/04/25 Preoperative Diagnosis: Umbilical hernia Postoperative Diagnosis: Umbilical hernia, incarcerated, measuring 3 x 2 cm Procedure(s) Performed: Robotic repair of incarcerated umbilical hernia with mesh placed Anesthesia: PASTOR Surgeon: Tadeo Chase Pathology: none sent Condition: stable Disposition: floor Indications for Procedure: 29-year-old male admitted for multiple issues including severe pain at the umbilicus. He is found to have incarcerated umbilical hernia. Plan is for robotic umbilical hernia repair with mesh. Risks, benefits and alternatives were provided to the patient. All questions answered prior to attending the operating suite. Operative Findings: 3 x 2 cm incarcerated umbilical hernia Description of Procedure: The patient was brought to the operating room and placed in supine position. General anesthesia with endotracheal intubation was performed as per anesthesia team. Chlorhexidine was used to prep the skin followed by application of sterile drapes and a timeout was performed to verify correct patient and correct procedure. Patient was confirmed to receive perioperative IV antibiotics, bilateral SCDs and 5000 units of subcutaneous heparin for VTE prophylaxis. A 5 mm skin incision was made along the left mid axillary line at Kim's point and the abdomen was entered under direct visualization using a Visiport. Pneumoperitoneum was achieved. The umbilical hernia was clearly visualized. The hernia defect measured 3 x 2 cm in the hernia was noted to be incarcerated with both omentum and preperitoneal fat. An additional 8 mm trocar was placed in the left lower abdomen and an 8 mm trocar was placed in the left mid abdomen. The initial 5 mm trocar was upsized to an 8 mm trocar. The da Vladislav robot was then docked. The 30 degree robotic camera was used. Robotic instruments were inserted. Omentum was reduced. The hernia defect contained preperitoneal fat which was reduced using gentle traction and countertraction method. The falciform ligament was divided using monopolar scissors close to the anterior abdominal wall to create a landing zone for the mesh. A ventralight circular mesh was placed and introduced into the abdominal cavity. The mesh measured 11.4 cm in diameter. The hernia defect was then closed primarily with running sutures using 1-0 strata fix by taking 1 cm bite on the fascia on either side of the defect. A Roland Pearson device was inserted through the middle of the hernia defect and the stay suture on the mesh was grasped to elevate the mesh against the anterior abdominal wall. The mesh was then circumferentially sutured to the peritoneum of the anterior abdominal wall using 2 oh V-Loc without any folds or kinks. The robot was then undocked. Laparoscopic camera was inserted and all trocar sites were examined. No evidence of bleeding. The pneumoperitoneum was then evacuated and all skin incisions were closed using 4-0 Monocryl followed by Dermabond skin glue. Sponge and instrument and needle count were correct x 2. Abdominal binder was applied. The patient was extubated and taken to postanesthesia care unit in stable condition.
[2025-04-04] MEDS: HYDROmorphone 0.5 MG/0.5 ML SYRINGE IVP PRN (15:52)
--- NOTE | 2025-04-04 21:45 | P.PN ---
Subjective Progress Note Date: 04/04/25 This is a pleasant 29-year-old male who was recently admitted with abdominal and upper left shoulder and chest pain with multiple consultations following due to noted pneumomediastinum and subcutaneous emphysema on admission. Patient is having umbilical hernia pain and underwent EGD with general surgery Dr. Chase and is undergoing hernia repair today. Awaiting official surgical reports at this time. Patient is afebrile with no reports of chest pain or palpitations currently. Patient reports pain on deep inspiration but denies significant shortness of breath. Patient having increased abdominal pain and tenderness at the umbilical site. Currently n.p.o. and again will await official surgical report. Continue current pain regimen. Follow-up on repeat labs in the a.m. along with a chest x-ray Review of systems: Constitutional: No reports of fatigue, fever, or chills Cardiovascular: No reports of chest pain or palpitations Respiratory: No reports of shortness of breath or cough GI: reports of occasional nausea, no reports of vomiting, no reports of diarrhea movements : No reports of dysuria or retention Neurovascular: reports of generalized weakness, All medications have been reviewed PHYSICAL EXAMINATION: GENERAL: The patient is alert and oriented x4, Well developed, well nourished. Obese HEENT: Pupils are round and equally reacting to light. EOMI. no scleral icterus. No conjunctival pallor. Normocephalic, atraumatic. No pharyngeal erythema. No thyromegaly. CARDIOVASCULAR: S1 and S2 muffled PULMONARY: diminished breath sounds bilaterally with no wheezing or rhonchi noted. ABDOMEN: soft. Mildly tender on exam in the umbilical area on palpation. obese. non-distended, normoactive bowel sounds. No palpable organomegaly. MUSCULOSKELETAL: No joint swelling or deformity. EXTREMITIES: No cyanosis, clubbing, or pedal edema. NEUROLOGICAL: Gross neurological examination did not reveal any focal deficits. Gait steady SKIN: No rashes. Assessment: Acute sudden onset pneumomediastinum, subcutaneous emphysema, undetermined etiology antral and body of stomach ulcers on EGD with biopsies obtained Umbilical hernia, scheduled for hernia repair with surgery today 04/04/2025 Increased white count, likely reactive, sepsis ruled out History of Crohn's disease History of IBS History of anxiety, bipolar, depression History of vaping Obesity with a BMI of 32.6 GI prophylaxis DVT prophylaxis Full code Plan: Recommend to continue with current medications and management with general surgery following. Patient is currently n.p.o. and is scheduled to undergo umbilical hernia repair today. Will await official report and continue with current pain regimen Resume diet per surgery Follow-up on repeat labs and monitor electrolytes and kidney functions. Replace electrolytes per protocol Encourage incentive spirometer use at least 10 times every hour while awake Encouraged continued increase activity as tolerated with frequent walking and sitting up out of the bed will discuss with general surgery regarding possible discharge planning in the next 24 to 48 hours. Overall prognosis is guarded at this time The impression and plan of care has been dictated by Deysi eWst, nurse practitioner as directed. Dr. Olu MD I have performed a history and examination and MDM of this patient, discussed the same with the dictator, and agree with the dictator's assessment and plan as written ,documented as a scribe. Based on total visit time, I have performed more than 50% of the visit. Any additional findings or plans will be noted. Objective - Vital Signs Vital signs: Vital Signs Temp 97.2 F L 04/04/25 15:00 Pulse 65 04/04/25 15:15 Resp 16 04/04/25 15:15 BP 123/76 04/04/25 15:15 Pulse Ox 93 L 04/04/25 15:15 FiO2 Intake & Output 04/03/25 04/04/25 04/04/25 18:59 06:59 18:59 Intake Total 220 240 650 Output Total 2 Balance 220 240 648 Weight 94.5 kg Intake: IV 220 650 Invasive Line 3 20 Oral 240 Output: Estimated Blood Loss 2 Other: Voiding Method Toilet Toilet Toilet # Voids 2 - Labs CBC & Chem 7: 04/04/25 06:11 04/04/25 06:11 Labs: Abnormal Lab Results - Last 24 Hours (Table) 04/04/25 04/04/25 Range/Units 06:11 06:11 RBC 4.30 L (4.40-5.60) 10*6/uL Hct 38.3 L (39.6-50.0) % MPV 9.4 L (9.5-12.2) fL Immature Gran # 0.05 H (0.00-0.04) 10*3/uL Glucose 102 H (74-99) mg/dL Microbiology - Last 24 Hours (Table) 07/25/25 07:28 Blood Culture - Final Blood
[2025-04-05] MEDS ORDERED: HYDROmorphone 0.5 MG/0.5 ML SYRINGE IVP PRN (07:00)
--- NOTE | 2025-04-05 07:25 | XR ---
EXAMINATION TYPE: XR chest 1V portable DATE OF EXAM: 04/05/2025 6:35 AM COMPARISON: Chest radiographs from 04/04/2025 TECHNIQUE: XR chest 1V portable Portable AP radiograph of the chest. CLINICAL INDICATION:Male, 29 years old with history of pneumomediastinum; FINDINGS: Lungs/Pleura: There is no evidence of pleural effusion, focal consolidation, or pneumothorax. Pulmonary vascularity: Unremarkable. Heart/mediastinum: Cardiomediastinal silhouette is stable. No distinct pneumomediastinum identified on today's exam. Musculoskeletal: No acute osseous pathology. IMPRESSION: No distinct pneumomediastinum identified on today's exam. [facility], , 04/05/2025 7:22 AM
[2025-04-05 08:33] LABS: Basophils # (A) 0.02 10*3/uL (0.00-0.10); Basophils % (A) 0.2 %; Eosinophils # (A) 0.00 10*3/uL (0.04-0.35); Eosinophils % (A) 0.0 %; HCT 41.0 % (39.6-50.0); HGB 14.2 g/dL (13.0-17.0); Lymphocytes # (A) 2.49 10*3/uL (0.90-5.00); Lymphocytes % (A) 23.5 %; MCH 30.5 pg (27.0-32.0); MCHC 34.6 g/dL (32.0-37.0); MCV 88.0 fL (80.0-97.0); Monocytes # (A) 0.62 10*3/uL (0.20-1.00); Monocytes % (A) 5.8 %; Neutrophils # (A) 7.42 10*3/uL (1.80-7.70); Neutrophils % (A) 70.0 %; Platelet Count 326 10*3/uL (140-440); RBC 4.66 10*6/uL (4.40-5.60); RDW 12.4 % (11.5-14.5); WBC 10.60 10*3/uL (4.50-10.00)
[2025-04-05 08:48] LABS: ALT 49 U/L (4-49); AST 33 U/L (17-59); African American GFR (CKD) >90 (>60 ml/min/1.73 sqM); Albumin 4.0 g/dL (3.5-5.0); Alkaline Phosphatase 67 U/L (38-126); Anion Gap 11 mmol/L; Blood Urea Nitrogen 15 mg/dL (9-20); Calcium 9.1 mg/dL (8.4-10.2); Carbon Dioxide 24 mmol/L (22-30); Chloride 103 mmol/L (98-107); Glucose 93 mg/dL (74-99); Magnesium 2.0 mg/dL (1.6-2.3); Non-African American GFR(CKD) >90 (>60 ml/min/1.73 sqM); Potassium 4.4 mmol/L (3.5-5.1); Sodium 138 mmol/L (137-145); Total Protein 6.8 g/dL (6.3-8.2)
[2025-04-05] MEDS ORDERED: HYDROcodone/APAP 5-325MG 1 EACH TAB PO PRN (11:06)
--- NOTE | 2025-04-05 11:21 | P.PN ---
Subjective Progress Note Date: 04/05/25 Patient reports significant umbilical pain today. Gets relief while standing up, pain is worse while lying down and sitting. Abdominal binder seems to help. Patient is tolerating diet and did feel like he had to pass a BM today, however he did not want to push hard because he just had surgery. When asked, patient does mention a history of marijuana use. Objective - Vital Signs Vital signs: Vital Signs Temp 98.1 F 04/05/25 08:00 Pulse 63 04/05/25 08:00 Resp 18 04/05/25 08:00 BP 119/69 04/05/25 08:00 Pulse Ox 95 04/05/25 08:00 FiO2 Intake & Output 04/04/25 04/05/25 04/05/25 18:59 06:59 18:59 Intake Total 800 10 240 Output Total 2 Balance 798 10 240 Weight 93.7 kg Intake: IV 800 10 Invasive Line 5 10 Oral 240 Output: Estimated Blood Loss 2 Other: Voiding Method Toilet Toilet # Voids 2 1 # Bowel Movements 1 - Exam Constitutional: Patient crying on exam today secondary to pain and frustration. Is standing up for relief and slowly walking around room. Abdominal: Umbilical hernia no longer visible. Incisions clean, dry, and intact. Dermabond in place. No surrounding discoloration or erythema. Tenderness to palpation surrounding umbilicus. No evidence of peritonitis. No visible skin discoloration or breakdown. - Labs CBC & Chem 7: 04/05/25 07:36 04/05/25 07:36 Labs: Abnormal Lab Results - Last 24 Hours (Table) 04/05/25 Range/Units 07:36 WBC 10.60 H (4.50-10.00) 10*3/uL MPV 9.1 L (9.5-12.2) fL Immature Gran # 0.05 H (0.00-0.04) 10*3/uL Eosinophils # 0.00 L (0.04-0.35) 10*3/uL Microbiology - Last 24 Hours (Table) 03/30/25 07:28 Blood Culture - Final Blood Assessment and Plan Assessment: 29 Year old male status post EGD and robotic umbilical hernia repair. - Scheduled toradol 15mg IV Q6hr - Added Robaxin 750 mg PO QID - [place] 5-325 Q4hr PRN - Continue PRN Dilaudid - Continue PPI while admitted - Will keep patient another day and reevaluate tomorrow for potential discharge ok for discharge tomorrow. Juan Antonio Bowers DO Time with Patient: Less than 30
[2025-04-05] MEDS: KETOROLAC 15 MG/ML 1 ML VIAL IVP SCH (12:22)
--- NOTE | 2025-04-05 14:19 | P.PN ---
Subjective Progress Note Date: 04/04/25 Principal diagnosis: Reason for follow-up is leukocytosis, bronchitis, dental caries Patient is a 29-year-old male with a past medical history significant for Crohn's IBS ADHD anxiety bipolar depression and marijuana use presenting to the hospital for evaluation of chest pain and abdominal pain patient complaining of pain to the left side of the chest and the shoulder area patient did have elevated white count CT of the neck and chest daily did shows significant kim bcutaneous emphysema but no evidence of any tracheal or esophageal perforation patient also have a cough with purulent sputum and evidence of bronchitis on the CT. On today's evaluation that is 04/04/2025,the patient denies any fever or any chills, patient is breathing comfortably on room air, the patient denies chest pain shortness of breath and no significant cough, patient denies abdominal yin n, no nausea vomiting or diarrhea. Patient white count 7.16, creatinine 0.80 culture remains to be negative Objective - Vital Signs Vital signs: Vital Signs Temp 98.1 F 04/04/25 12:14 Pulse 58 L 04/04/25 12:14 Resp 16 04/04/25 12:14 BP 130/81 04/04/25 12:14 Pulse Ox 98 04/04/25 12:14 FiO2 Intake & Output 04/03/25 04/04/25 04/04/25 18:59 06:59 18:59 Intake Total 220 240 100 Balance 220 240 100 Weight 94.5 kg Intake: IV 220 100 Invasive Line 3 20 Oral 240 Other: Voiding Method Toilet Toilet Toilet # Voids 2 - Exam GENERAL DESCRIPTION: Middle-age male lying in bed in no distress RESPIRATORY SYSTEM: Unlabored breathing , decreased breath sounds at bases HEART: S1 S2 regular rate and rhythm , ABDOMEN: Soft , no tenderness EXTREMITIES: No edema feet - Labs CBC & Chem 7: 04/04/25 06:11 04/04/25 06:11 Labs: Abnormal Lab Results - Last 24 Hours (Table) 04/04/25 04/04/25 Range/Units 06:11 06:11 RBC 4.30 L (4.40-5.60) 10*6/uL Hct 38.3 L (39.6-50.0) % MPV 9.4 L (9.5-12.2) fL Immature Gran # 0.05 H (0.00-0.04) 10*3/uL Glucose 102 H (74-99) mg/dL Microbiology - Last 24 Hours (Table) 03/30/25 07:28 Blood Culture - Final Blood Assessment and Plan (1) Leukocytosis Current Visit: Yes Status: Acute Code(s): D72.829 - ELEVATED WHITE BLOOD CELL COUNT, UNSPECIFIED SNOMED Code(s): 743946435 (2) Bronchitis Current Visit: Yes Status: Acute Code(s): J40 - BRONCHITIS, NOT SPECIFIED ACUTE OR CHRONIC SNOMED Code(s): 17357123 (3) Dental caries Current Visit: Yes Status: Acute Code(s): K02.9 - DENTAL CARIES, UNSPECIFIED SNOMED Code(s): 39082191 (4) Pneumomediastinum Current Visit: Yes Status: Acute Code(s): J98.2 - INTERSTITIAL EMPHYSEMA SNOMED Code(s): 17131064 Plan: 1patient presented to hospital with chest and neck area pain in this patient with no fever or tachycardia however he did have elevated white count elevated CRP and did have evidence of extensive changes on the neck and chest CT but did not mention any evidence of tracheal or esophageal injury there was evidence of pneumomediastinum bronchitis and dental caries 2-patient also complaining of cough and was bringing up purulent sputum sputum culture has been collected, just so far negative 3-patient did have resolution of his leukocytosis and culture have been negative so far currently on Zosyn however no need for antibiotic on discharge Dictation was produced using [employer] dictation software. please excuse any grammatical, word or spelling errors.
[2025-04-05 14:52] VITALS: BMI 32.3
[2025-04-05] MEDS: HYDROcodone/APAP 5-325MG 1 EACH TAB PO SCH (16:24)
[2025-04-05] MEDS ORDERED: TEMAZEPAM 15 MG CAP PO PRN (19:45)
--- NOTE | 2025-04-05 22:17 | P.PN ---
Subjective Progress Note Date: 04/05/25 This is a pleasant 29-year-old male who was recently admitted with abdominal and upper left shoulder and chest pain with multiple consultations following due to noted pneumomediastinum and subcutaneous emphysema on admission. Patient is having umbilical hernia pain and underwent EGD with general surgery Dr. Chase and is undergoing hernia repair today. Awaiting official surgical reports at this time. Patient is afebrile with no reports of chest pain or palpitations currently. Patient reports pain on deep inspiration but denies significant shortness of breath. Patient having increased abdominal pain and tenderness at the umbilical site. Currently n.p.o. and again will await official surgical report. Continue current pain regimen. Follow-up on repeat labs in the a.m. along with a chest x-ray 04/05/2025 Patient is seen in follow-up today currently reporting significant abdominal pain and not much of an appetite. Patient reports the only thing that is helping his pain is Dilaudid and occasional Toradol. Discussed about weaning off IV narcotics as patient will not be able to go home with these and Toradol is being scheduled. Robaxin being added as well and encouraged increased acti vity as tolerated. Patient also reports he has not slept in days and will add Restoril as needed at night. Will monitor overnight with possible discharge planning in once cleared by surgery and pain is better controlled. Review of systems: Constitutional: No reports of fatigue, fever, or chills Cardiovascular: No reports of chest pain or palpitations Respiratory: No reports of shortness of breath or cough GI: reports of occasional nausea, no reports of vomiting, no reports of diarrhea, reports passing gas : No reports of dysuria or retention Neurovascular: reports of generalized weakness, All medications have been reviewed PHYSICAL EXAMINATION: GENERAL: The patient is alert and oriented x4, Well developed, well nourished. Obese HEENT: Pupils are round and equally reacting to light. EOMI. no scleral icterus. No conjunctival pallor. Normocephalic, atraumatic. No pharyngeal erythema. No thyromegaly. CARDIOVASCULAR: S1 and S2 muffled PULMONARY: diminished breath sounds bilaterally with no wheezing or rhonchi noted. ABDOMEN: soft. Extremely tender on exam in the umbilical area on palpation. obese. non-distended, normoactive bowel sounds. No palpable organomegaly. MUSCULOSKELETAL: No joint swelling or deformity. EXTREMITIES: No cyanosis, clubbing, or pedal edema. NEUROLOGICAL: Gross neurological examination did not reveal any focal deficits. Gait steady SKIN: No rashes. Assessment: Acute sudden onset pneumomediastinum, subcutaneous emphysema, undetermined etiology antral and body of stomach ulcers on EGD with biopsies obtained Umbilical hernia, status post incarcerated umbilical hernia repair with surgery 04/04/2025 Increased white count, likely reactive, sepsis ruled out History of Crohn's disease History of IBS History of anxiety, bipolar, depression History of vaping Obesity with a BMI of 32.6 GI prophylaxis DVT prophylaxis Full code Plan: Recommend to continue with current medications and management with general surgery following. Patient is status post umbilical hernia repair. Patient having severe pain continuing to require IV narcotics for abdominal pain. Diet has been advanced and tolerating although not much of an appetite. Patient has intermittent nausea Follow-up on repeat labs and monitor electrolytes and kidney functions. Replace electrolytes per protocol Encourage incentive spirometer use at least 10 times every hour while awake Encouraged continued increase activity as tolerated with frequent walking and sitting up out of the bed will discuss with general surgery regarding possible discharge planning in the next 24 to 48 hours once pain is more controlled. Overall prognosis is guarded at this time The impression and plan of care has been dictated by Deysi West, nurse practitioner as directed. Dr. Olu MD I have performed a history and examination and MDM of this patient, discussed the same with the dictator, and agree with the dictator's assessment and plan as written ,documented as a scribe. Based on total visit time, I have performed more than 50% of the visit. Any additional findings or plans will be noted. Objective - Vital Signs Vital signs: Vital Signs Temp 97.8 F 04/05/25 14:26 Pulse 61 04/05/25 14:26 Resp 18 04/05/25 14:26 BP 120/77 04/05/25 14:26 Pulse Ox 97 04/05/25 14:26 FiO2 Intake & Output 04/05/25 04/05/25 04/06/25 06:59 18:59 06:59 Intake Total 10 2630 Balance 10 2630 Weight 93.7 kg 93.7 kg Intake: IV 10 Invasive Line 5 10 Intake, IV Titration 1000 Amount Piperacillin-Tazobactam 3 100 .375 gm In Sodium Chloride 0.9% 100 ml @ 25 mls/hr IVPB Q8HR [facility] Rx# :[id number] Sodium Chloride 0.9% 1, 900 000 ml @ 75 mls/hr IV . [id number] [facility] Rx#:[id number] Oral 1630 Other: Voiding Method Toilet # Voids 1 3 # Bowel Movements 1 1 - Labs CBC & Chem 7: 04/05/25 07:36 04/05/25 07:36 Labs: Abnormal Lab Results - Last 24 Hours (Table) 04/05/25 Range/Units 07:36 WBC 10.60 H (4.50-10.00) 10*3/uL MPV 9.1 L (9.5-12.2) fL Immature Gran # 0.05 H (0.00-0.04) 10*3/uL Eosinophils # 0.00 L (0.04-0.35) 10*3/uL
[2025-04-06 08:06] LABS: Basophils # (A) 0.04 X 10*3/uL (0.00-0.10); Basophils % (A) 0.5 %; Eosinophils # (A) 0.11 X 10*3/uL (0.04-0.35); Eosinophils % (A) 1.4 %; HCT 39.1 % (39.6-50.0); HGB 13.1 g/dL (13.0-17.0); Immature Grans, Automated 0.50 %; Lymphocytes # (A) 3.60 X 10*3/uL (0.90-5.00); Lymphocytes % (A) 45.3 %; MCH 30.0 pg (27.0-32.0); MCHC 33.5 g/dL (32.0-37.0); MCV 89.7 FL (80.0-97.0); Monocytes # (A) 0.75 X 10*3/uL (0.20-1.00); Monocytes % (A) 9.4 %; NRBC Per 100 WBC 0 X 10*3/uL (0.00-0.01); Neutrophils # (A) 3.41 X 10*3/uL (1.80-7.70); Neutrophils % (A) 42.9 %; Platelet Count 308 X 10*3/uL (140-440); RBC 4.36 X 10*6/uL (4.40-5.60); RDW 12.6 % (11.5-14.5); WBC 7.95 X 10*3/uL (4.50-10.00)
[2025-04-06 08:16] LABS: Anion Gap 9.20 mmol/L (4.00-12.00); BUN/Creat Ratio 21.89 Ratio (12.00-20.00); Blood Urea Nitrogen 19.7 mg/dL (9.0-27.0); Calcium 8.4 mg/dL (8.7-10.3); Carbon Dioxide 23.8 mmol/L (21.6-31.8); Chloride 107 mmol/L (96-109); Glucose 98 mg/dL (70-110); Potassium 4.3 mmol/L (3.5-5.5); Sodium 140 mmol/L (135-145)
[2025-04-06 08:35] VITALS: BP 111/68; PULSE 51; RESP 16; TEMP 97.8
--- NOTE | 2025-04-06 14:47 | P.PN ---
Subjective Progress Note Date: 04/05/25 Principal diagnosis: Reason for follow-up is leukocytosis, bronchitis, dental caries Patient is a 29-year-old male with a past medical history significant for Crohn's IBS ADHD anxiety bipolar depression and marijuana use presenting to the hospital for evaluation of chest pain and abdominal pain patient complaining of pain to the left side of the chest and the shoulder area patient did have elevated white count CT of the neck and chest daily did shows significant kim bcutaneous emphysema but no evidence of any tracheal or esophageal perforation patient also have a cough with purulent sputum and evidence of bronchitis on the CT. On today's evaluation that is 04/05/2025,the patient remains to be afebrile, patient is on room air not requiring supplemental oxygen and mentioned breathing comfortably with no chest pain or cough.Patient denies having any nausea or vo miting, and improvement in abdominal pain. Patient white count is 10.60, creatinine 0.75 Objective - Vital Signs Vital signs: Vital Signs Temp 98.1 F 04/05/25 08:00 Pulse 63 04/05/25 08:00 Resp 18 04/05/25 08:00 BP 119/69 04/05/25 08:00 Pulse Ox 95 04/05/25 08:00 FiO2 Intake & Output 04/04/25 04/05/25 04/05/25 18:59 06:59 18:59 Intake Total 800 10 780 Output Total 2 Balance 798 10 780 Weight 93.7 kg Intake: IV 800 10 Invasive Line 5 10 Oral 780 Output: Estimated Blood Loss 2 Other: Voiding Method Toilet Toilet # Voids 2 1 # Bowel Movements 1 - Exam GENERAL DESCRIPTION: Middle-age male lying in bed in no distress RESPIRATORY SYSTEM: Unlabored breathing , decreased breath sounds at bases HEART: S1 S2 regular rate and rhythm , ABDOMEN: Soft , no tenderness EXTREMITIES: No edema feet - Labs CBC & Chem 7: 04/06/25 03:52 04/06/25 03:52 Labs: Abnormal Lab Results - Last 24 Hours (Table) 04/05/25 Range/Units 07:36 WBC 10.60 H (4.50-10.00) 10*3/uL MPV 9.1 L (9.5-12.2) fL Immature Gran # 0.05 H (0.00-0.04) 10*3/uL Eosinophils # 0.00 L (0.04-0.35) 10*3/uL Microbiology - Last 24 Hours (Table) 03/30/25 07:28 Blood Culture - Final Blood Assessment and Plan (1) Leukocytosis Status: Acute Code(s): D72.829 - ELEVATED WHITE BLOOD CELL COUNT, UNSPECIFIED SNOMED Code(s): 032902930 (2) Bronchitis Status: Acute Code(s): J40 - BRONCHITIS, NOT SPECIFIED ACUTE OR CHRONIC SNOMED Code(s): 80794779 (3) Dental caries Status: Acute Code(s): K02.9 - DENTAL CARIES, UNSPECIFIED SNOMED Code(s): 66839348 (4) Pneumomediastinum Status: Acute Code(s): J98.2 - INTERSTITIAL EMPHYSEMA SNOMED Code(s): 13915247 Plan: 1patient presented to hospital with chest and neck area pain in this patient with no fever or tachycardia however he did have elevated white count elevated CRP and did have evidence of extensive changes on the neck and chest CT but did not mention any evidence of tracheal or esophageal injury there was evidence of pneumomediastinum bronchitis and dental caries 2-patient also complaining of cough and was bringing up purulent sputum sputum culture has been collected, just so far negative 3-patient did have resolution of his leukocytosis and culture have been negative patient Zosyn was discontinued yesterday and will monitor the patient closely off antibiotic Dictation was produced using [employer] dictation software. please excuse any grammatical, word or spelling errors. Time with Patient: Less than 30
--- NOTE | 2025-04-06 14:47 | P.PN ---
Subjective Progress Note Date: 04/06/25 Principal diagnosis: Reason for follow-up is leukocytosis, bronchitis, dental caries Patient is a 29-year-old male with a past medical history significant for Crohn's IBS ADHD anxiety bipolar depression and marijuana use presenting to the hospital for evaluation of chest pain and abdominal pain patient complaining of pain to the left side of the chest and the shoulder area patient did have elevated white count CT of the neck and chest daily did shows significant kim bcutaneous emphysema but no evidence of any tracheal or esophageal perforation patient also have a cough with purulent sputum and evidence of bronchitis on the CT. On today's evaluation that is 04/06/2025, the patient continues to be afebrile, the patient is on room air and breathing comfortably, the Pt denies having any chest pain or cough, the patient denies having any abdominal pain no vomiting or any diarrhea feeling better wants to go home. Patient white count 7.95, creatinine 0.9 blood culture negative sputum culture negative Objective - Vital Signs Vital signs: Vital Signs Temp 97.8 F 04/06/25 06:55 Pulse 51 L 04/06/25 06:55 Resp 16 04/06/25 06:55 BP 111/68 04/06/25 06:55 Pulse Ox 96 04/06/25 06:55 FiO2 Intake & Output 04/05/25 04/06/25 04/06/25 18:59 06:59 18:59 Intake Total 2630 Balance 2630 Weight 93.7 kg Intake: Intake, IV Titration 1000 Amount Piperacillin-Tazobactam 3 100 .375 gm In Sodium Chloride 0.9% 100 ml @ 25 mls/hr IVPB Q8HR PIPE Rx# :[id number] Sodium Chloride 0.9% 1, 900 000 ml @ 75 mls/hr IV . [id number] PIPE Rx#:[id number] Oral 1630 Other: Voiding Method Toilet # Voids 3 2 # Bowel Movements 1 - Exam GENERAL DESCRIPTION: Middle-age male lying in bed in no distress RESPIRATORY SYSTEM: Unlabored breathing , decreased breath sounds at bases HEART: S1 S2 regular rate and rhythm , ABDOMEN: Soft , no tenderness EXTREMITIES: No edema feet - Labs CBC & Chem 7: 04/06/25 03:52 04/06/25 03:52 Labs: Abnormal Lab Results - Last 24 Hours (Table) 04/06/25 04/06/25 Range/Units 03:52 03:52 RBC 4.36 L (4.40-5.60) X 10*6/uL Hct 39.1 L (39.6-50.0) % BUN/Creatinine Ratio 21.89 H (12.00-20.00) Ratio Calcium 8.4 L (8.7-10.3) mg/dL Assessment and Plan (1) Leukocytosis Status: Acute Code(s): D72.829 - ELEVATED WHITE BLOOD CELL COUNT, UNSPECIFIED SNOMED Code(s): 609205982 (2) Bronchitis Status: Acute Code(s): J40 - BRONCHITIS, NOT SPECIFIED ACUTE OR CHRONIC SNOMED Code(s): 81344689 (3) Dental caries Status: Acute Code(s): K02.9 - DENTAL CARIES, UNSPECIFIED SNOMED Code(s): 09345547 (4) Pneumomediastinum Status: Acute Code(s): J98.2 - INTERSTITIAL EMPHYSEMA SNOMED Code(s): 81422020 Plan: 1patient presented to hospital with chest and neck area pain in this patient with no fever or tachycardia however he did have elevated white count elevated CRP and did have evidence of extensive changes on the neck and chest CT but did not mention any evidence of tracheal or esophageal injury there was evidence of pneumomediastinum bronchitis and dental caries 2-patient also complaining of cough and was bringing up purulent sputum sputum culture has been collected, just so far negative 3-patient did have resolution of his leukocytosis and culture have been negative patient has received adequate IV Zosyn during hospital stay no need for antibiotic on discharge Dictation was produced using [employer] dictation software. please excuse any grammatical, word or spelling errors. Time with Patient: Less than 30
--- NOTE | 2025-04-08 14:37 | P.DS ---
Providers Date of admission: 03/30/25 09:28 Attending physician: Ama Raines Consults: 03/30/25 09:39 Consult Physician Urgent Consulting Provider: Radha Matamoros Consult Reason/Comments: Pneumomediastinum Do you want consulting provider notified?: Yes 03/30/25 12:14 Consult Physician Routine Consulting Provider: Jarvis Morton Consult Reason/Comments: Pneumomediastinum Do you want consulting provider notified?: Yes 03/30/25 13:21 Consult Physician Routine Consulting Provider: Dania Waggoner Consult Reason/Comments: sepsis Do you want consulting provider notified?: Yes 04/01/25 09:34 Consult Physician Urgent Consulting Provider: Tadeo Chase Consult Reason/Comments: Abdominla pain Do you want consulting provider notified?: Yes Primary care physician: Emily Goldberg Hospital Course: Final diagnosis Acute sudden onset pneumomediastinum, subcutaneous emphysema, undetermined etiology antral and body of stomach ulcers on EGD with biopsies obtained Umbilical hernia, status post incarcerated umbilical hernia repair with surgery 04/04/2025 Increased white count, likely reactive, sepsis ruled out History of Crohn's disease History of IBS History of anxiety, bipolar, depression History of vaping Obesity with a BMI of 32.6 GI prophylaxis DVT prophylaxis Full code Discharge disposition Patient is being discharged in a stable condition with guarded prognosis to home. Patient will follow-up with Dr. Awa Tian in the outpatient setting upon discharge. Patient is to continue with current medications and outpatient follow-up with general surgery Dr. Chase as scheduled. Total time taken is greater than 35 minutes. Hospital course This is a 29-year-old male who was recently admitted with noted pneumomediastinum with significant abdominal pain being closely monitored by general surgery CT surgery and pulmonary. General surgery also evaluated patient as patient was noted to have umbilical hernia with significant abdominal pain and distention. Patient is status post incarcerated umbilical hernia repair doing relatively well and pain is more manage tolerating diet. Patient has been cleared by consultations recommending outpatient follow-up. Patient was instructed not to lift anything over 2 pounds until clearance by general surgery. Patient to follow-up with general surgery in 1 to 2 weeks. Please refer to other consultation notes for further HPI. Reviewed currently no reports of chest pain, shortness of breath, or palpitations. Patient is afebrile. No reports of nausea or vomiting and patient is tolerating diet. Patient will be discharged home today. Physical exam: Gen: This is a 29-year-old male who is awake, alert and oriented x 3, well- developed, well-nourished, obese HEENT: Head is atraumatic, normocephalic. Pupils equal, round. Sclerae is anicteric. NECK: Supple. No JVD. No lymphadenopathy. No thyromegaly. LUNGS: Clear to auscultation. No wheezes or rhonchi. No intercostal retractions. HEART: Regular rate and rhythm. No murmur. ABDOMEN: Soft. Bowel sounds are present. No masses. Mild tenderness noted on umbilical hernia area EXTREMITIES: No pedal edema. No calf tenderness. NEUROLOGICAL: Patient is awake, alert and oriented x3. Cranial nerves 2 through 12 are grossly intact. Please refer to medication reconciliation sheet for a list of medications. The impression and plan of care has been dictated by Deysi West, Nurse Practitioner as directed. Dr. Tano MD I have performed a history and examination and MDM of this patient, discussed the same with the dictator, and agree with the dictator's assessment and plan as written ,documented as a scribe. Based on total visit time, I have performed more than 50% of the visit. Patient Condition at Discharge: Fair Plan - Discharge Summary Discharge Rx Participant: No New Discharge Prescriptions: No Action Dextroamphetamine/Amphetamine [Adderall] 20 mg PO DAILY Discharge Medication List Dextroamphetamine/Amphetamine [Adderall] 20 mg PO DAILY 03/30/25 [History] Follow up Appointment(s)/Referral(s): Awa Tian RN [REGISTERED NURSE] - 1-2 days Tadeo Chase DO [Doctor of Osteopathic Medicine] - 1 Week (office not available Please call to schedule appoiintment) Patient Instructions/Handouts: Umbilical Hernia Repair (DC) Discharge Disposition: HOME SELF-CARE
== END 2025-04-06 13:57 | disposition home or self-care (01) | DRG 982 ==
LOC: EC 06:26 → 6NMEDSUR 09:27 → OBSVTOIN 09:28 → 6NMEDSUR 16:31 → 3SCARD 17:39 → 4SSUR 04-05 19:20
PROVIDERS: ADMIT Hospitalist; ATTEND Hospitalist
PROC: 0DB68ZX Excision of Stomach, Via Natural or Artificial Opening Endoscopic, Diagnostic (ICD-10-PCS; 2025-04-03)
PROC: 8E0W4CZ Robotic Assisted Procedure of Trunk Region, Percutaneous Endoscopic Approach (ICD-10-PCS; 2025-04-04)
PROC: 0WUF4JZ Supplement Abdominal Wall with Synthetic Substitute, Percutaneous Endoscopic Approach (ICD-10-PCS; principal; 2025-04-04 13:40)
DX: T79.7XXA Traumatic subcutaneous emphysema, initial encounter (principal); K42.0 Umbilical hernia with obstruction, without gangrene; F31.9 Bipolar disorder, unspecified; E66.9 Obesity, unspecified; I10 Essential (primary) hypertension; K25.9 Gastric ulcer, unspecified as acute or chronic, without hemorrhage or perforation; K50.911 Crohn's disease, unspecified, with rectal bleeding; X58.XXXA Exposure to other specified factors, initial encounter; Z68.32 Body mass index [BMI] 32.0-32.9, adult; F90.9 Attention-deficit hyperactivity disorder, unspecified type; F17.290 Nicotine dependence, other tobacco product, uncomplicated; K02.9 Dental caries, unspecified; Z71.6 Tobacco abuse counseling; Z79.899 Other long term (current) drug therapy
CPT/HCPCS: 36415; 43239; 70490; 71045; 71046; 71250; 74176; 74220; 76705; 80048; 80053; 80306; 81001; 83605; 83690; 83735; 84484; 85025; 85379; 85610; 85652; 85730; 86140; 87040; 87070; 87205; 88305; 93005; 93306; 96361; 96365; 96366; 96375; 96376; 99285